=== PATIENT | male | born 1940 | race Caucasian/White ===

== ENCOUNTER 2017-11-12 15:09 | Inpatient (IN) | payer MEDICARE, OTHER ==
[~2017-11-12] VITALS: Ht 177.8 cm; Wt 82.3 kg
[~2017-11-12 15:09] MED LIST: BENA25TA8 PO; CLON1 PO; IBUP400T20 PO; LISI40TA PO; METF-324 PO; SITA100 PO; TAB-TAB PO; TAMS0.4C67 PO
[2017-11-12] MEDS ORDERED: ONDANSETRON HCL 4 MG/2 ML VIAL IVP PRN (17:45)
[2017-11-12] MEDS ORDERED: MAGNESIUM HYDROXIDE SUSP 30 ML CUP PO PRN (17:45)
[2017-11-12] MEDS ORDERED: SENNOSIDES 8.6 MG TAB PO PRN (17:45)
[2017-11-12] MEDS ORDERED: SODIUM CHLORIDE 0.9% FLUSH 10 ML FLUSH IV FLUSH PRN (17:45)
[2017-11-12] MEDS ORDERED: LACTULOSE SYRUP 20 GM/30 ML CUP PO PRN (17:45)
[2017-11-12] MEDS ORDERED: ZOLPIDEM TARTRATE 5 MG TAB PO PRN (17:45)
[2017-11-12] MEDS ORDERED: NALOXONE HCL 0.4 MG/ML AMP IV PUSH PRN (17:45)
[2017-11-12] MEDS ORDERED: BISACODYL 10 MG SUPP RECTAL PRN (17:45)
[2017-11-12] MEDS ORDERED: LIDOCAINE HCL 2% 100 MG/5 ML SYRINGE ONE (18:02)
[2017-11-12] MEDS ORDERED: LIDOCAINE HCL 1% 50 ML VIAL ONE ×2 (18:05→18:20)
--- NOTE | 2017-11-12 18:16 | HHI.HP ---
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 Hyperleukocytosis. Severe thrombocytopenia. Symptomatic anemia. Chronic history of diabetes mellitus. Hypertension. Diagnoses: (1) Chronic neutrophilic leukemia Diagnosis: Principal (2) Thrombocytopenia Diagnosis: Secondary (3) Anemia Diagnosis: Secondary (4) Hypertension Diagnosis: Secondary (5) Diabetes mellitus Diagnosis: Secondary Chief Complaint: White blood cell count greater than 200,000. Generalized fatigue and weakness. Chest pain radiating to the right and left side of the sternum. Difficulty breathing with minimal exertion. Travel History International Travel<30 Days: No Contact w/Intl Traveler <30 Da: No Traveled to Known Affected Are: No History of Present Illness Mr. 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 The patient had leukocytosis and thrombocytopenia dating back 3 or 4 years however a formal diagnosis of chronic neutrophilic leukemia was not established until March 2017. For management of his CNL the patient had been on cytoreductive therapy with hydroxyurea and subsequently was initiated on interferon which he had no response, in quick succession he was transitioned to oral Jakafi about a month ago at a low dose. He has yet to receive a tyrosine kinase inhibitor. Over the past 3 weeks he has been noted to have a rapid increase in his WBC count which is mostly driven by increase in neutrophils and myelocytes. The patient was given pulse doses of hydroxyurea which seemed not to help decrease his WBC count but did worsen his thrombocytopenia. The patient has had chronic thrombocytopenia and over the past 2 or 3 weeks is required weekly platelet transfusions. He is becoming platelet transfusion refractory. Patient underwent blood work earlier today, he was noted to have a total WBC count of 210,000, platelet count of 20,000 and hemoglobin of 8.1 g/dL. Manual absolute neutrophil count was noted to be 208,000 with increased metamyelocytes , myelocytes and promyelocytes, nucleated red blood cells were also noted. Blasts were not reported in the peripheral smear on manual differential. The patient was recommended hospitalization for emergent cytoreductive systemic chemotherapy given the failure of outpatient repeated interventions including hydroxyurea, interferon and Jakafi which have over the past 3 months been delivered in combination or sequentially. He has been advised cytoreductive therapy with cytarabine at an intermediate dose. Review of Systems Constitutional: COMPLAINS OF: Fatigue, Weight loss, Chills, Dizziness, Change in appetite (Decreased appetite), Night Sweats, DENIES: Diaphoretic episodes, Fever, Weight gain Endocrine: COMPLAINS OF: Heat/cold intolerance, DENIES: Polydipsia, Polyuria, Polyphagia Eyes: COMPLAINS OF: Vision loss, Photosensitivity, DENIES: Blurred vision, Diplopia, Eye inflammation, Eye pain, Double Vision Ears, nose, mouth, throat: DENIES: Tinnitus, Hearing loss, Vertigo, Nasal discharge, Oral lesions, Throat pain, Hoarseness, Ear Pain, Running Nose, Epistaxis, Sinus Pain, Toothache, Odynophagia Respiratory: COMPLAINS OF: Cough, Snoring, Sputum production, Shortness of breath, DENIES: Apneas, Wheezing, Hemoptysis Cardiovascular: COMPLAINS OF: Chest pain, Palpitations, Dyspnea on Exertion, Lower Extremity Edema, DENIES: Syncope, PND, Orthopnea, Claudication Gastrointestinal: COMPLAINS OF: Nausea, Anorexia, DENIES: Abdominal pain, Black stools, Bloody stools, Constipation, Diarrhea, Vomiting, Difficulty Swallowing Genitourinary: COMPLAINS OF: Nocturia, DENIES: Sexual dysfunction, Urinary frequency, Urinary incontinence, Urgency, Hematuria, Dysuria, Penile Discharge, Testicular Pain, Testicular Swelling Musculoskeletal: COMPLAINS OF: Muscle aches, Stiffness, Back pain, DENIES: Joint pain, Joint Swelling, Neck pain Integumentary: DENIES: Abnormal pigmentation, Nail changes, Pruritus, Rash Hematologic/lymphatic: COMPLAINS OF: Bruising, DENIES: Lymphadenopathy Immunologic/allergic: DENIES: Eczema, Urticaria Neurologic: COMPLAINS OF: Headache, Poor Balance, DENIES: Abnormal gait, Localized weakness, Paresthesias, Seizures, Speech Problems, Tremor Psychiatric: COMPLAINS OF: Anxiety, Confusion, DENIES: Mood changes, Depression , Hallucinations, Agitation, Suicidal Ideation, Homicidal Ideation, Delusions Except as stated in HPI: all other systems reviewed are Neg Past Family Social History Past Medical History Chronic neutrophilic leukemia Hypertension Diabetes Severe thrombus cytopenia Anemia Periodontal disease. Past Surgical History Multiple bone marrow biopsies Cholecystectomy Tonsillectomy Appendectomy Reported Medications Jakafi 5 mg p.o. daily Januvia 100 mg once daily Metformin 500 mg p.o. twice daily Lisinopril 20 mg once daily Flomax 0.4 mg once daily. Allergies: Coded Allergies: No Known Allergies (Unverified , 06/01/14) Family History Parents about disease no known oncologic diagnoses in the family. Social History Retired from the [employer], he is , he lives at home alone. He has a daughter who lives nearby who is very supportive. He reports formally being a smoker having smoked a pack a day for 25 years, he quit 30 years ago. He reports occasional alcohol consumption. Physical Exam Physical Exam GENERAL: Elderly male, he appears to be pale, he is in no acute distress, he is accompanied by his daughter. SKIN: Skin is pale, cool, dry, small petechiae noted over the abdomen, some bruises scattered over the upper and lower 70s. HEAD: Atraumatic. Normocephalic. No temporal or scalp tenderness. EYES: Conjunctivae are pale sclerae are anicteric, EOMI, PERRLA,. ENT: Oral examination: Multiple teeth have been extracted, no obvious masses erythema active bleeding. NECK: Trachea midline. No JVD or lymphadenopathy. Supple, nontender, no meningeal signs. CARDIOVASCULAR: Tachycardic, regular, S1-S2 no obvious murmurs or gallops. RESPIRATORY: Clear to auscultation. Breath sounds equal bilaterally. No wheezes , rales, or rhonchi. GASTROINTESTINAL: Abdomen soft, non-tender, nondistended. No hepato-splenomegaly , or palpable masses. No guarding. MUSCULOSKELETAL: Extremities without clubbing, cyanosis, or edema. No joint tenderness, effusion, or edema noted. No calf tenderness. Negative Homans sign bilaterally. Generally decreased muscle mass NEUROLOGICAL: Awake and alert. Cranial nerves II through XII intact. Motor and sensory grossly within normal limits. Five out of 5 muscle strength in all muscle groups. Normal speech. Laboratory CBC dated 11/12/2017 performed at [facility]: WBC count 210, hemoglobin 8.1 g/dL, hematocrit 23.2%, MCV 103.5, platelet count 20, absolute neutrophil count 208.7, metamyelocytes: 13%, myelocytes 9%, promyelocytes 9%, nucleated RBCs 2%. Chemistries:Dated 11/12/2017 Sodium 135, potassium 4.1, chloride 102, bicarb 22.6, BUN 19, creatinine 0.98, EGFR 74 mils per minute, calcium 8.9, total bilirubin 0.5, AST 34, ALT 30, alkaline phosphate 442, albumin 3.9. Septic Shock Reassessment Septic shock perfusion: reassessment completed Caprini VTE Risk Assessment Caprini VTE Risk Assessment: Mod/High Risk (score >= 2) VTE Pharm Contraindication: Thrombocytopenia(<50) Caprini Risk Assessment Model Point Value = 1 Point Value = 2 Point Value = 3 Point Value = 5 Age 41-60 Minor surgery BMI > 25 kg/m2 Swollen legs Varicose veins or History of unexplained or recurrent spontaneous Oral contraceptives or hormone replacement Sepsis (< 1 month) Serious lung disease, including pneumonia (< 1 month) Abnormal pulmonary function Acute myocardial infarction Congestive heart failure (< 1 month) History of inflammatory bowel disease Medical patient at bed rest Age 61-74 Arthroscopic surgery Major open surgery (> 45 min) Laparoscopic surgery (> 45 min) Malignancy Confined to bed (> 72 hours) Immobilizing plaster cast Central venous access Age >= 75 History of VTE Family history of VTE Factor V Leiden Prothrombin [id number] Lupus anticoagulant Anticardiolipin antibodies Elevated serum homocysteine Heparin-induced thrombocytopenia Other congenital or acquired thrombophilia Stroke (< 1 month) Elective arthroplasty Hip, pelvis, or leg fracture Acute spinal cord injury (< 1 month) Prophylaxis Regimen Total Risk Factor Score Risk Level Prophylaxis Regimen 0-1 Low Early ambulation 2 Moderate Order ONE of the following: *Sequential Compression Device (SCD) *Heparin 5000 units SQ BID 3-4 Higher Order ONE of the following medications: *Heparin 5000 units SQ TID *Enoxaparin/Lovenox 40 mg SQ daily (WT < 150 kg, CrCl > 30 mL/min) *Enoxaparin/Lovenox 30 mg SQ daily (WT < 150 kg, CrCl > 10-29 mL/min) *Enoxaparin/Lovenox 30 mg SQ BID (WT < 150 kg, CrCl > 30 mL/min) AND/OR *Sequential Compression Device (SCD) 5 or more Highest Order ONE of the following medications: *Heparin 5000 units SQ TID (Preferred with Epidurals) *Enoxaparin/Lovenox 40 mg SQ daily (WT < 150 kg, CrCl > 30 mL/min) *Enoxaparin/Lovenox 30 mg SQ daily (WT < 150 kg, CrCl > 10-29 mL/min) *Enoxaparin/Lovenox 30 mg SQ BID (WT < 150 kg, CrCl > 30 mL/min) AND *Sequential Compression Device (SCD) Assessment and Plan Problem List: (1) Chronic neutrophilic leukemia ICD Code: D47.1 - Chronic myeloproliferative disease (2) Anemia ICD Code: D64.9 - Anemia, unspecified (3) Thrombocytopenia ICD Code: D69.6 - Thrombocytopenia, unspecified Status: Chronic Assessment and Plan 78-year-old man with a diagnosis of chronic neutrophilic leukemia, there is associated with cytopenias including anemia and thrombus cytopenia. Unfortunately his disease has been difficult to control, over the past several months his WBC count has been increasing and despite systemic therapeutic interventions consisting of cytoreductive therapy with hydroxyurea, disease modifying therapy with interferon and targeted therapy consisting of Jakafi the patient has not responded. This week his WBC count doubled from 100,000-210,000 , he has significant metamyelocytes, myelocytes and promyelocytes in circulation. Blast cells are not definitively noted. I suspect he may be entering in accelerated phase and requires cytoreductive chemotherapy with cytarabine. Think would be reasonable to treat him at a dose of 1000 mg per metered squared daily 4 whilst monitoring for tumor lysis syndrome and treating him supportively with IV fluid hydration. Bone marrow biopsy will be done tonight to rule out progression to acute myeloid leukemia. Plan: 1. Chronic neutrophilic leukemia: Obtain bone marrow biopsy with marrow aspiration tonight. Initiate plans to start cytarabine at a dose of 1000 mg per metered squared daily on 11/13/2017. 2. Tumor lysis syndrome prophylaxis: Initiate allopurinol 300 mg p.o. twice daily, initiate IV fluid hydration. Obtain baseline uric acid and LDH levels. 3. History of type 2 diabetes: Initiate insulin sliding scale protocol with before meals and at bedtime bedside fingersticks with insulin sliding scale coverage. Initiate outpatient metformin and Januvia. 4. History of BPH: Continue outpatient Flomax 0.4 mg daily. 5. History of hypertension: Continue outpatient lisinopril 20 mg once daily. 6. Severe thrombocytopenia: He is oftentimes platelet refractory and requires HLA matched platelets. I will alert our blood bank to procure HLA matched platelets as I anticipate he will become cytopenic with initiation of systemic chemotherapy. 7. Symptomatic anemia: Supportive transfusions to maintain hemoglobin over 8 g/ dL. 8. He will be kept on telemetry to monitor heart rate to rule out arrhythmias. 9. Vital signs per unit protocol, physician to be alerted for fever greater than 100.3F. Code Status Full Discussed Condition With Patient, his daughter at bedside and patient's nurse. Physician Certification 2 Midnight Certification Type: Admission for Inpatient Services Order for Inpatient Services The services are ordered in accordance with Medicare regulations or non- Medicare payer requirements, as applicable. In the case of services not specified as inpatient-only, they are appropriately provided as inpatient services in accordance with the 2-midnight benchmark. Estimated LOS (days): 8 days is the estimated time the patient will need to remain in the hospital, assuming treatment plan goals are met and no additional complications. Post-Hospital Plan: Home Health Problem Qualifiers (1) Anemia: Qualified Codes: D61.89 - Other specified aplastic anemias and other bone marrow failure syndromes (2) Diabetes mellitus: Timoteo Mac MD Nov 12, 2017 18:16
[2017-11-12] MEDS ORDERED: DEXTROSE 50% IN WATER 50 ML VIAL(D50) IV PUSH PRN (18:30)
[2017-11-12] MEDS ORDERED: GLUCAGON 1 MG/ML VIAL OTHER PRN (18:30)
--- NOTE | 2017-11-12 19:03 | PD.OP ---
Operative Report Date of Surgery: Nov 12, 2017 Preoperative Diagnosis: (1) Chronic neutrophilic leukemia Postoperative Diagnosis: (1) Chronic neutrophilic leukemia Procedure: Left posterior iliac crest bone marrow core biopsy and attempted bone marrow aspiration. Anesthesia: 1% lidocaine; local anesthesia. Surgeon: Timoteo Mac Outside Sales Account Manager(s): None Resident Surgeon: None Operation and Findings: Procedure in detail: After valid informed consent was obtained the skin overlying the left posterior iliac crest was cleaned and draped in a sterile fashion. The skin, subcutaneous tissue and periosteum were anesthetized with 1% lidocaine. A 3 mm horizontal incision was made in the anesthetized skin. A Jamshidi needle was then introduced and progressed into the left posterior iliac crest. A 1 cm core biopsy was obtained. Touch preps at bedside were prepared. The Jamshidi needle was then reintroduced through the same incision into the left posterior iliac crest and 2 different attempts were made to aspirate bone marrow. No bone marrow was aspirated, there was not even a flash of bone marrow. The Jamshidi needle was progressed into the posterior iliac crest and then withdrawn , an additional 1 cm core biopsy was obtained. The cores were dry appearing. At that time the procedure was terminated. Pressure was held after all needles were removed. The patient tolerated the procedure without acute complications. Estimated blood loss was 3 cc. Timoteo Mac MD Nov 12, 2017 19:03
[2017-11-12 19:41] LABS: INTERNATIONAL NORMALIZED RATIO 1.1 RATIO; MEAN CELL VOLUME 107.7 FL (80.0-100.0); MEAN CORPUSCULAR HEMOGLOBIN 30.4 PG (27.0-34.0); MEAN PLATELET VOLUME 8.2 FL (7.0-11.0); PROTHROMBIN TIME - PATIENT 11.3 SEC (9.8-11.6); RED BLOOD COUNT 1.87 MIL/MM3 (4.50-5.90); RED CELL DISTRIBUTION WIDTH 24.2 % (11.6-17.2); WHITE BLOOD COUNT 216.5 TH/MM3 (4.0-11.0)
[2017-11-12 19:51] LABS: AST (GOT) 36 U/L (15-37); BICARBONATE 20.1 MEQ/L (21.0-32.0); BLOOD UREA NITROGEN 18 MG/DL (7-18); CALCIUM 9.2 MG/DL (8.5-10.1); CHLORIDE 102 MEQ/L (98-107); CREATININE 1.04 MG/DL (0.60-1.30); GLOMERULAR FILTRATION RATE 69 ML/MIN (>89); GLUCOSE,RANDOM 103 MG/DL (74-106); SODIUM (NA) 135 MEQ/L (136-145)
[2017-11-12 19:55] LABS: ALKALINE PHOSPHATASE 434 U/L (45-117); ALT (GPT) 33 U/L (12-78); TOTAL BILIRUBIN ADULT 0.4 MG/DL (0.2-1.0); TOTAL PROTEIN 7.5 GM/DL (6.4-8.2)
[2017-11-12 20:15] LABS: MAGNESIUM 2.1 MG/DL (1.5-2.5); PHOSPHORUS 3.6 MG/DL (2.5-4.9)
[2017-11-12 20:38] LABS: HEMATOCRIT 20.1 % (39.0-51.0); HEMOGLOBIN 5.7 GM/DL (13.0-17.0); MEAN CORPUSCULAR HGB CONC 28.2 % (32.0-36.0); PLATELET COUNT 19 TH/MM3 (150-450)
[2017-11-12] MEDS ORDERED: ACETAMINOPHEN 325 MG TAB PO ONE (21:45)
[2017-11-12] MEDS ORDERED: diphenhydrAMINE HCL 25 MG CAP PO ONE (21:45)
[2017-11-12 22:11] LABS: BANDS 26 % (0-6); LYMPHOCYTES 2 % (9-44); METAMYELOCYTES 6 % (0-1); MONOCYTES 6 % (0-8); MYELOCYTES 7 % (0-0); NEUTROPHIL # MANUAL DIFF 199.2 TH/MM3 (1.8-7.7); POLYS (SEG NEUTROPHILS) 46 % (16-70); PROMYELOCYTES 7 % (0-0)
[2017-11-12 22:13] LABS: DOHLE BODIES PRESENT (NONE SEEN)
[2017-11-12 22:20] VITALS: BP 151/74; PULSE 114; PULSE 123; RESP 16; TEMP 98.2; O2SAT 97
[2017-11-12] MEDS: metFORMIN HCL 500 MG TAB PO SCH (22:43)
[2017-11-12] MEDS: DOCUSATE SODIUM 50 MG/SENNA 8.6 MG TAB PO SCH (22:43)
[2017-11-12] MEDS: TAMSULOSIN HCL 0.4 MG CAP PO SCH (22:43)
[2017-11-12] MEDS: INSULIN ASPART SUPPLEMENTAL SCALE SQ SCH (22:43)
[2017-11-12] MEDS: ALLOPURINOL 300 MG TAB PO SCH (22:44)
[2017-11-12] MEDS: SODIUM CHLORIDE 0.9% FLUSH 10 ML FLUSH IV FLUSH SCH (22:44)
[2017-11-13] VITALS (16 sets, daily range): BP systolic 123–163; BP diastolic 54–83; PULSE 100–129; RESP 16–18; TEMP 97.6–98.5; O2SAT 94–100
[2017-11-13] MEDS: SODIUM CHLOR 0.9% 1000 ML INJ 1,000 ML IV SCH ×2 (06:22→19:47)
[2017-11-13] MEDS: DOCUSATE SODIUM 50 MG/SENNA 8.6 MG TAB PO SCH ×2 (07:16→20:31)
[2017-11-13] MEDS: SODIUM CHLORIDE 0.9% FLUSH 10 ML FLUSH IV FLUSH SCH ×2 (07:17→20:15)
[2017-11-13] MEDS: INSULIN ASPART SUPPLEMENTAL SCALE SQ SCH ×4 (08:00→20:26)
--- NOTE | 2017-11-13 08:44 | PD.ONC.PN ---
Subjective Subjective Remarks Patient seen and examined, vital signs, labs and medications reviewed. Patient received 2 units packed red blood cells last night and was initiated on IV fluid hydration. He tells me overall he feels better after the blood cell transfusion, he did have a brief period of difficulty breathing and band like chest pain across the central portion of his chest last night. But this was short-lived. Overnight he was noted to have sustained sinus tachycardia with heart rates sustaining in the 120 bpm range. This morning his heart rate is ranging between 95 and 105 bpm. He remains afebrile. Objective Data Date Time Temp Pulse Resp B/P (MAP) Pulse Ox O2 Delivery O2 Flow Rate FiO2 11/13/17 08:22 Room Air 11/13/17 08:00 97.7 100 18 145/75 (98) 97 11/13/17 07:00 106 11/13/17 04:45 98.0 105 18 132/66 97 11/13/17 04:19 97.8 104 16 130/68 97 11/13/17 04:05 97.8 104 16 130/68 (88) 97 11/13/17 04:00 105 11/13/17 01:15 98.5 111 18 126/54 94 11/13/17 00:40 98.5 117 18 140/71 96 11/13/17 00:10 98 Nasal Cannula 1.00 11/12/17 22:20 123 11/12/17 22:20 98.2 114 16 151/74 (99) 97 11/12/17 22:20 100 Nasal Cannula 1.00 11/13/17 11/13/17 11/13/17 07:00 15:00 23:00 Intake Total 490 ml Output Total 380 ml Balance 110 ml Result Diagram: 11/12/17 1823 11/12/17 1823 Laboratory Results Laboratory Tests Test 11/12/17 18:23 11/12/17 19:29 White Blood Count 216.5 TH/MM3 Red Blood Count 1.87 MIL/MM3 Hemoglobin 5.7 GM/DL Hematocrit 20.1 % Mean Corpuscular Volume 107.7 FL Mean Corpuscular Hemoglobin 30.4 PG Mean Corpuscular Hemoglobin Concent 28.2 % Red Cell Distribution Width 24.2 % Platelet Count 19 TH/MM3 Mean Platelet Volume 8.2 FL CBC Comment AUTO DIFF Differential Total Cells Counted 100 Neutrophils % (Manual) 46 % Band Neutrophils % 26 % Lymphocytes % 2 % Monocytes % 6 % Neutrophils # (Manual) 199.2 TH/MM3 Metamyelocytes 6 % Myelocytes 7 % Promyelocytes 7 % Differential Comment FINAL DIFF MANUAL Dohle Bodies PRESENT Platelet Estimate RARE Platelet Morphology Comment NORMAL Prothrombin Time 11.3 SEC Prothromb Time International Ratio 1.1 RATIO Activated Partial Thromboplast Time 24.5 SEC Blood Urea Nitrogen 18 MG/DL Creatinine 1.04 MG/DL Random Glucose 103 MG/DL Total Protein 7.5 GM/DL Albumin 4.0 GM/DL Calcium Level 9.2 MG/DL Alkaline Phosphatase 434 U/L Aspartate Amino Transf (AST/SGOT) 36 U/L Alanine Aminotransferase (ALT/SGPT) 33 U/L Total Bilirubin 0.4 MG/DL Sodium Level 135 MEQ/L Potassium Level 3.9 MEQ/L Chloride Level 102 MEQ/L Carbon Dioxide Level 20.1 MEQ/L Anion Gap 13 MEQ/L Estimat Glomerular Filtration Rate 69 ML/MIN Uric Acid 6.1 MG/DL Phosphorus Level 3.6 MG/DL Magnesium Level 2.1 MG/DL Lactate Dehydrogenase 760 U/L Administered Medications Medications (Trade) Dose Ordered Sig/S[place] PRN Reason Start Time Stop Time Status Last Admin Dose Admin Sodium Chloride (NS Flush) 2 ml BID IV FLUSH 11/12/17 21:00 11/12/17 22:44 Metformin HCl (Glucophage) 500 mg BIDPC PO 11/12/17 18:30 11/12/17 22:43 Tamsulosin HCl (Flomax) 0.4 mg DAILY PO 11/12/17 18:30 11/12/17 22:43 Allopurinol (Zyloprim) 300 mg BID PO 11/12/17 21:00 11/12/17 22:44 Sodium Chloride 1,000 ml @ 75 mls/hr [id number] IV 11/13/17 04:45 11/13/17 06:22 Objective Remarks GENERAL: Elderly male, he appears to be pale, he is in no acute distress, he is accompanied by his daughter. SKIN: Skin is pale, cool, dry, small petechiae noted over the abdomen, some bruises scattered over the upper and lower 70s. HEAD: Atraumatic. Normocephalic. No temporal or scalp tenderness. EYES: Conjunctivae are pale sclerae are anicteric, EOMI, PERRLA,. ENT: Oral examination: Multiple teeth have been extracted, no obvious masses erythema active bleeding. NECK: Trachea midline. No JVD or lymphadenopathy. Supple, nontender, no meningeal signs. CARDIOVASCULAR: Tachycardic, regular, S1-S2 no obvious murmurs or gallops. RESPIRATORY: Clear to auscultation. Breath sounds equal bilaterally. No wheezes , rales, or rhonchi. GASTROINTESTINAL: Abdomen soft, non-tender, nondistended. No hepato-splenomegaly , or palpable masses. No guarding. MUSCULOSKELETAL: Extremities without clubbing, cyanosis, or edema. No joint tenderness, effusion, or edema noted. No calf tenderness. Negative Homans sign bilaterally. Generally decreased muscle mass NEUROLOGICAL: Awake and alert. Cranial nerves II through XII intact. Motor and sensory grossly within normal limits. Five out of 5 muscle strength in all muscle groups. Normal speech. Assessment/Plan Assessment 77-year-old man with a diagnosis of chronic neutrophilic leukemia, there is associated with cytopenias including anemia and thrombus cytopenia. Unfortunately his disease has been difficult to control, over the past several months his WBC count has been increasing and despite systemic therapeutic interventions consisting of cytoreductive therapy with hydroxyurea, disease modifying therapy with interferon and targeted therapy consisting of Jakafi the patient has not responded. This week his WBC count doubled from 100,000-210,000 , he has significant metamyelocytes, myelocytes and promyelocytes in circulation. Blast cells are not definitively noted. I suspect he may be entering in accelerated phase and requires cytoreductive chemotherapy with cytarabine. Think would be reasonable to treat him at a dose of 1000 mg per metered squared daily 4 whilst monitoring for tumor lysis syndrome and treating him supportively with IV fluid hydration. Bone marrow biopsy will be done tonight to rule out progression to acute myeloid leukemia. Plan 1. Chronic neutrophilic leukemia: Await PICC line placement followed by initiation of cytoreductive systemic chemotherapy with cytarabine. He will be dosed daily for total of 4 doses at 1000 mg per metered squared. 2. Tumor lysis syndrome prophylaxis: Continue IV fluid hydration with normal saline 75 cc/h, encourage oral hydration, he is on acyclovir 300 mg p.o. twice daily. 3. Diabetes: Continue Januvia, metformin and insulin sliding scale with meals and before bedtime. 4. 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 He has therefore required HLA matched platelets. Timoteo Mac MD Nov 13, 2017 08:44
[2017-11-13] MEDS ORDERED: SODIUM CHLOR 0.9% 250 ML INJ 250 ML IV ONE (09:15)
[2017-11-13] MEDS: LISINOPRIL 20 MG TAB PO SCH (09:20)
[2017-11-13] MEDS: TAMSULOSIN HCL 0.4 MG CAP PO SCH (09:20)
[2017-11-13] MEDS: ALLOPURINOL 300 MG TAB PO SCH ×2 (09:20→20:14)
[2017-11-13] MEDS: metFORMIN HCL 500 MG TAB PO SCH ×2 (09:20→17:54)
[2017-11-13 11:26] LABS: HEMATOCRIT 27.3 % (39.0-51.0); HEMOGLOBIN 8.1 GM/DL (13.0-17.0); MEAN CELL VOLUME 101.8 FL (80.0-100.0); MEAN CORPUSCULAR HEMOGLOBIN 30.3 PG (27.0-34.0); MEAN PLATELET VOLUME 8.6 FL (7.0-11.0); RED BLOOD COUNT 2.68 MIL/MM3 (4.50-5.90); RED CELL DISTRIBUTION WIDTH 23.4 % (11.6-17.2); WHITE BLOOD COUNT 247.3 TH/MM3 (4.0-11.0)
[2017-11-13 11:30] LABS: MEAN CORPUSCULAR HGB CONC 29.7 % (32.0-36.0)
[2017-11-13 11:34] LABS: PLATELET COUNT 19 TH/MM3 (150-450)
[2017-11-13 12:55] LABS: BANDS 20 % (0-6); BLASTS 1 % (0-0); LYMPHOCYTES 1 % (9-44); METAMYELOCYTES 10 % (0-1); MONOCYTES 3 % (0-8); MYELOCYTES 25 % (0-0); NEUTROPHIL # MANUAL DIFF 237.4 TH/MM3 (1.8-7.7); POLYS (SEG NEUTROPHILS) 36 % (16-70); PROMYELOCYTES 5 % (0-0)
[2017-11-13 12:59] LABS: CORRECTED NUCLEATED RBC 1 /100 WBC (0-0); NUCLEATED RED BLOOD CELL 2 (0-0)
[2017-11-13] MEDS: SODIUM CHLORIDE 0.9% IV SCH (14:57)
[2017-11-13] MEDS: GRANISETRON IV SCH (14:57)
[2017-11-13] MEDS: DEXAMETHASONE IV SCH (14:57)
--- NOTE | 2017-11-13 15:21 | RADRPT ---
EXAM DATE/TIME: 11/13/2017 13:58 [facility] COMPARISON: No previous studies available for comparison. INDICATIONS : Patient with chronic neutrophilic leukemia in need of PICC line placement. MEDICAL HISTORY : Thrombocytopenia, Leukocytosis, HTN, Diabetes, Severe thrombus cytopenia, Anemia SURGICAL HISTORY : Multiple bone marrow biopsies, Cholecystectomy ENCOUNTER: Initial ACUITY: 7-11 months PAIN SCORE: 0/10 FLUORO TIME: 0.5 minutes IMAGE SERIES: 1 ACCESS: Right basilic vein MEDICATION(S): 1.) 200 units Heparin IV DEVICE(S): 1.) 4 Vietnamese single lumen 45 cm Xcela Power PICC PROCEDURE : 1. Ultrasound guidance for venous catheterization. 2. Fluoroscopic guidance. 3. Ultrasound & fluoroscopic guided central venous Power PICC line placement. The risks, benefits and alternatives to the procedure were explained and verbal and written consent w as obtained. The site was prepped in sterile fashion. Full sterile technique was used, including ca p, mask, sterile gloves and gown and a large sterile sheet. Hand hygiene and 2% chlorhexidine prep w as utilized per protocol for cutaneous antisepsis with appropriate dry time for site. Sterile gel a nd sterile probe cover were utilized for ultrasound guidance. The skin and subcutaneous tissues wer e infiltrated with local anesthetic solution. Under direct ultrasound guidance, a suitable vein was accessed and a measuring guidewire was introduc ed and positioned in the central venous system. The ultrasound images depicting access guidance were saved and stored to PACS for permanent record. A Power Injectable PICC line was cut to prescribed length and introduced, positioned with tip at the cavoatrial junction level. The line was flushed and secured per protocol. CONCLUSION: 1. Uncomplicated central venous Power PICC line placement. 2. The PICC line can be used immediately. Jose Marshall MD on November 13, 2017 at 15:19 Board Certified Radiologist. This report was verified electronically.
[2017-11-13] MEDS: CYTARABINE IV SCH (16:05)
[2017-11-13] MEDS: SODIUM CHLORID 0.9% IV SCH (16:05)
[2017-11-13] MEDS: clonazePAM 1 MG TAB PO SCH (20:14)
[2017-11-14] VITALS (18 sets, daily range): BP systolic 108–156; BP diastolic 55–86; PULSE 90–110; RESP 16–20; TEMP 97–97.9; O2SAT 93–100
[2017-11-14 04:27] LABS: HEMATOCRIT 22.3 % (39.0-51.0); MEAN CELL VOLUME 101.6 FL (80.0-100.0); MEAN PLATELET VOLUME 8.9 FL (7.0-11.0); RED CELL DISTRIBUTION WIDTH 23.5 % (11.6-17.2)
[2017-11-14 04:37] LABS: MEAN CORPUSCULAR HGB CONC 28.5 % (32.0-36.0)
[2017-11-14 04:38] LABS: HEMOGLOBIN 6.4 GM/DL (13.0-17.0)
[2017-11-14 04:39] LABS: ALBUMIN 3.3 GM/DL (3.4-5.0); AST (GOT) 28 U/L (15-37); BICARBONATE 18.8 MEQ/L (21.0-32.0); BLOOD UREA NITROGEN 21 MG/DL (7-18); CHLORIDE 106 MEQ/L (98-107); CREATININE 1.03 MG/DL (0.60-1.30); GLOMERULAR FILTRATION RATE 70 ML/MIN (>89); GLUCOSE,RANDOM 180 MG/DL (74-106); PLATELET COUNT 12 TH/MM3 (150-450); SODIUM (NA) 135 MEQ/L (136-145)
[2017-11-14 04:45] LABS: ALKALINE PHOSPHATASE 361 U/L (45-117); ALT (GPT) 25 U/L (12-78); TOTAL BILIRUBIN ADULT 0.5 MG/DL (0.2-1.0); TOTAL PROTEIN 6.3 GM/DL (6.4-8.2)
[2017-11-14 05:36] LABS: BANDS 14 % (0-6); LYMPHOCYTES 1 % (9-44); METAMYELOCYTES 4 % (0-1); MONOCYTES 2 % (0-8); MYELOCYTES 11 % (0-0); POLYS (SEG NEUTROPHILS) 68 % (16-70)
[2017-11-14 05:37] LABS: TEARDROP RBCS 1+ (NORMAL)
[2017-11-14] MEDS ORDERED: SODIUM CHLOR 0.9% 250 ML INJ 250 ML IV ONE (07:45)
[2017-11-14] MEDS ORDERED: diphenhydrAMINE HCL 25 MG CAP PO PRN (07:45)
[2017-11-14] MEDS: INSULIN ASPART SUPPLEMENTAL SCALE SQ SCH ×4 (08:00→20:11)
--- NOTE | 2017-11-14 08:40 | PD.ONC.PN ---
Subjective Subjective Remarks Afebrile overnight. Patient states he feels great today. He states he slept well last night. He is eating breakfast this AM. He denies any oral sores or nausea with chemotherapy yesterday. He states yesterday prior to chemotherapy he had some loose stools. but states they have improved somewhat today. Objective Data Date Time Temp Pulse Resp B/P (MAP) Pulse Ox O2 Delivery O2 Flow Rate FiO2 11/14/17 04:49 97.7 97 20 128/71 (90) 96 11/14/17 00:21 97.8 91 18 112/60 (77) 98 11/14/17 00:09 101 11/13/17 22:49 97 21 11/13/17 20:07 98.1 108 18 123/65 (84) 97 11/13/17 20:06 111 11/13/17 20:05 Room Air 11/13/17 16:48 Room Air 11/13/17 16:00 98.1 129 18 127/63 (84) 100 11/13/17 15:00 129 11/13/17 12:00 97.6 118 16 163/83 (109) 96 11/13/17 11:53 Room Air 11/13/17 11:00 108 11/14/17 11/14/17 11/14/17 07:00 15:00 23:00 Intake Total 500 ml Output Total 601 ml Balance -101 ml Result Diagram: 11/14/17 0351 11/14/17 0351 Laboratory Results Laboratory Tests Test 11/13/17 10:23 11/14/17 03:51 11/14/17 04:20 White Blood Count 247.3 TH/MM3 233.0 TH/MM3 Red Blood Count 2.68 MIL/MM3 2.20 MIL/MM3 Hemoglobin 8.1 GM/DL 6.4 GM/DL Hematocrit 27.3 % 22.3 % Mean Corpuscular Volume 101.8 FL 101.6 FL Mean Corpuscular Hemoglobin 30.3 PG 29.0 PG Mean Corpuscular Hemoglobin Concent 29.7 % 28.5 % Red Cell Distribution Width 23.4 % 23.5 % Platelet Count 19 TH/MM3 12 TH/MM3 Mean Platelet Volume 8.6 FL 8.9 FL CBC Comment AUTO DIFF AUTO DIFF Differential Total Cells Counted 200 100 Neutrophils % (Manual) 36 % 68 % Band Neutrophils % 20 % 14 % Lymphocytes % 1 % 1 % Monocytes % 3 % 2 % Neutrophils # (Manual) 237.4 TH/MM3 226.0 TH/MM3 Metamyelocytes 10 % 4 % Myelocytes 25 % 11 % Promyelocytes 5 % Nucleated Red Blood Cells 1 /100 WBC Differential Comment FINAL DIFF MANUAL FINAL DIFF MANUAL Blastocytes 1 % Platelet Estimate LOW RARE Platelet Morphology Comment NORMAL NORMAL Tear Drop Cells 1+ Blood Urea Nitrogen 21 MG/DL Creatinine 1.03 MG/DL Random Glucose 180 MG/DL Total Protein 6.3 GM/DL Albumin 3.3 GM/DL Calcium Level 8.0 MG/DL Uric Acid 5.4 MG/DL Alkaline Phosphatase 361 U/L Aspartate Amino Transf (AST/SGOT) 28 U/L Alanine Aminotransferase (ALT/SGPT) 25 U/L Lactate Dehydrogenase 895 U/L Total Bilirubin 0.5 MG/DL Sodium Level 135 MEQ/L Potassium Level 4.7 MEQ/L Chloride Level 106 MEQ/L Carbon Dioxide Level 18.8 MEQ/L Anion Gap 10 MEQ/L Estimat Glomerular Filtration Rate 70 ML/MIN Administered Medications Medications (Trade) Dose Ordered Sig/Sierra Route PRN Reason Start Time Stop Time Status Last Admin Dose Admin Sodium Chloride (NS Flush) 2 ml BID IV FLUSH 11/12/17 21:00 11/12/17 22:44 Insulin Aspart (NovoLOG SUPPLEMENTAL SCALE) 1 ACHS SLIDING SCALE SQ 11/12/17 21:00 11/13/17 20:26 Metformin HCl (Glucophage) 500 mg BIDPC PO 11/12/17 18:30 11/13/17 17:54 Sitagliptin Phosphate (Januvia) 100 mg DAILY PO 11/13/17 09:00 11/13/17 09:19 Lisinopril (Prinivil) 20 mg DAILY PO 11/13/17 09:00 11/13/17 09:20 Tamsulosin HCl (Flomax) 0.4 mg DAILY PO 11/12/17 18:30 11/13/17 09:20 Allopurinol (Zyloprim) 300 mg BID PO 11/12/17 21:00 11/13/17 20:14 Sodium Chloride 1,000 ml @ 75 mls/hr [id number] IV 11/13/17 04:45 11/13/17 19:47 Granisetron HCl 1 mg/Dexamethasone Sodium Phosphate 12 mg/Sodium Chloride 54 ml @ 324 mls/hr Q24H IV 11/13/17 16:30 11/16/17 16:39 11/13/17 14:57 Cytarabine 2000 mg/Sodium Chloride 500 ml @ 166.667 mls/hr Q24H IV 11/13/17 17:00 11/16/17 19:59 11/13/17 16:05 Clonazepam (KlonoPIN) 1 mg HS PO 11/13/17 21:00 11/13/17 20:14 Objective Remarks GENERAL: pleasant elderly male, sitting up in chair next to bed. He is eating breakfast. he appears comfortable and in nad. SKIN: Warm and dry. bruise along left posterior hip from bone marrow biopsy, bandage in place with dried blood. PICC line site right arm has dried blood on the bandage but no active bleeding. HEAD: Normocephalic. EYES: No injection or drainage. NECK: Supple, trachea midline. CARDIOVASCULAR: Regular rate and rhythm RESPIRATORY: Breath sounds equal bilaterally. No accessory muscle use. GASTROINTESTINAL: Abdomen soft, non-tender, nondistended. EXTREMITIES: No cyanosis NEUROLOGICAL: awake and alert. normal speech. moving extremities. Assessment/Plan Assessment 77-year-old male with with a diagnosis of chronic neutrophilic leukemia, admitted in suspected accelerated phase for cytoreductive chemotherapy with FLOR- C History: over the past several months his WBC count has been increasing and despite systemic therapeutic interventions consisting of cytoreductive therapy with hydroxyurea, disease modifying therapy with interferon and targeted therapy consisting of Jakafi the patient has not responded. the week of admission WBC count doubled from 100,000-210,000, +significant metamyelocytes, myelocytes and promyelocytes in circulation. Blast cells are not definitively noted. Plan 1. Chronic neutrophilic leukemia: s/p PICC line placement on 11/13. today is Day 2 (out of 4) of Cytarabine at 1000mg/m2. will start Decadron eye drops for prophylaxis. 2. Tumor lysis syndrome prophylaxis: on NS @ 75cc/hr. monitor CMP, uric acid, LDH, phosphorus and magnesium. 3. Diabetes: on Januvia + Metformin with SSI. monitor glucose 4. Severe thrombocytopenia and anemia: will give 1 unit HLA matched platelets today and 1 unit pRBC. I have requested a second unit of HLA matched platelets be available on Thursday. 5. Diarrhea: unclear etiology, although the patient indicates this is chronic. C. diff testing pending. If this is negative I will start PRN imodium. Attending Statement The exam, history, and the medical decision-making described in the above note were completed with the assistance of the mid-level provider. I reviewed and agree with the findings presented. I attest that I had a [id number] encounter with the patient on the same day, and personally performed and documented my assessment and findings in the medical record. Patient was seen and examined, vital signs, labs, medications, chemotherapy infusion record all reviewed. Patient is currently receiving 1 unit packed red blood cells. He reports having had one soft bowel movement with urgency yesterday. Stool C. difficile was ordered. He remains afebrile. He reports no further complaints of chest pain or difficulty breathing. He is eating well. He rested well last night. He had no difficulties with chemotherapy infusion. I did discuss the bone marrow core biopsy slides with our pathologist yesterday. No definite findings of acute myeloid leukemia, the core sample will be stained for blasts and a formal blast percentage will be reported in the upcoming days. There was however significant dyspoiesis in the red blood cell precursors noted and abnormal megakaryocytes noted as well. The marrow was overall noted to be quite hypercellular. Overall he had significant dysplasia. Continue systemic therapy with intermediate dose cytarabine. Today will be day 2. Supportive transfusions are ongoing. Akanksha Carballo Nov 14, 2017 08:40 Timoteo Mac MD Nov 14, 2017 12:34
[2017-11-14] MEDS: DEXAMETHASONE SOD PHOS 0.1% OPHT SOLN 5 ML BTL EACH EYE SCH ×4 (08:45→23:27)
[2017-11-14] MEDS: DOCUSATE SODIUM 50 MG/SENNA 8.6 MG TAB PO SCH ×2 (09:00→20:11)
[2017-11-14] MEDS: SODIUM CHLOR 0.9% 1000 ML INJ 1,000 ML IV SCH ×2 (09:13→20:12)
[2017-11-14] MEDS: TAMSULOSIN HCL 0.4 MG CAP PO SCH (09:14)
[2017-11-14] MEDS: LISINOPRIL 20 MG TAB PO SCH (09:14)
[2017-11-14] MEDS: ALLOPURINOL 300 MG TAB PO SCH ×2 (09:14→20:13)
[2017-11-14] MEDS: ACETAMINOPHEN 325 MG TAB PO PRN ×2 (09:14→20:37)
[2017-11-14] MEDS: metFORMIN HCL 500 MG TAB PO SCH ×2 (09:14→18:01)
[2017-11-14] MEDS: SODIUM CHLORIDE 0.9% FLUSH 10 ML FLUSH IV FLUSH SCH ×2 (10:35→20:11)
[2017-11-14 10:42] LABS: PHOSPHORUS 4.3 MG/DL (2.5-4.9)
[2017-11-14] MEDS: GRANISETRON IV SCH (16:02)
[2017-11-14] MEDS: SODIUM CHLORIDE 0.9% IV SCH (16:02)
[2017-11-14] MEDS: DEXAMETHASONE IV SCH (16:02)
[2017-11-14] MEDS: CYTARABINE IV SCH (16:54)
[2017-11-14] MEDS: SODIUM CHLORID 0.9% IV SCH (16:54)
[2017-11-14] MEDS: clonazePAM 1 MG TAB PO SCH (20:13)
[2017-11-15] VITALS (20 sets, daily range): BP systolic 108–155; BP diastolic 55–81; PULSE 76–105; RESP 16–18; TEMP 97.6–98.4; O2SAT 96–100
[2017-11-15 05:25] LABS: HEMATOCRIT 23.9 % (39.0-51.0); HEMOGLOBIN 7.1 GM/DL (13.0-17.0); MEAN CELL VOLUME 100.1 FL (80.0-100.0); MEAN CORPUSCULAR HEMOGLOBIN 29.8 PG (27.0-34.0); MEAN PLATELET VOLUME 8.5 FL (7.0-11.0); PLATELET COUNT 23 TH/MM3 (150-450); RED BLOOD COUNT 2.38 MIL/MM3 (4.50-5.90); RED CELL DISTRIBUTION WIDTH 22.9 % (11.6-17.2); WHITE BLOOD COUNT 217.3 TH/MM3 (4.0-11.0)
[2017-11-15 05:26] LABS: MEAN CORPUSCULAR HGB CONC 29.8 % (32.0-36.0)
[2017-11-15] MEDS: DEXAMETHASONE SOD PHOS 0.1% OPHT SOLN 5 ML BTL EACH EYE SCH ×4 (05:41→23:11)
[2017-11-15 05:44] LABS: ALBUMIN 3.5 GM/DL (3.4-5.0); BICARBONATE 18.3 MEQ/L (21.0-32.0); BLOOD UREA NITROGEN 25 MG/DL (7-18); CALCIUM 7.9 MG/DL (8.5-10.1); CHLORIDE 106 MEQ/L (98-107); CREATININE 0.95 MG/DL (0.60-1.30); GLOMERULAR FILTRATION RATE 77 ML/MIN (>89); GLUCOSE,RANDOM 185 MG/DL (74-106); SODIUM (NA) 137 MEQ/L (136-145)
[2017-11-15 05:47] LABS: ALKALINE PHOSPHATASE 443 U/L (45-117); ALT (GPT) 25 U/L (12-78); AST (GOT) 27 U/L (15-37); TOTAL BILIRUBIN ADULT 0.6 MG/DL (0.2-1.0); TOTAL PROTEIN 6.9 GM/DL (6.4-8.2)
[2017-11-15 06:33] LABS: BANDS 20 % (0-6); METAMYELOCYTES 3 % (0-1); MONOCYTES 1 % (0-8); MYELOCYTES 5 % (0-0); NEUTROPHIL # MANUAL DIFF 215.1 TH/MM3 (1.8-7.7); OVALOCYTES 1+ (NORMAL); POLYS (SEG NEUTROPHILS) 71 % (16-70)
[2017-11-15] MEDS: SODIUM CHLOR 0.9% 1000 ML INJ 1,000 ML IV SCH ×2 (07:51→23:16)
[2017-11-15] MEDS: INSULIN ASPART SUPPLEMENTAL SCALE SQ SCH ×4 (07:53→20:06)
[2017-11-15] MEDS: TAMSULOSIN HCL 0.4 MG CAP PO SCH ×2 (09:00→19:57)
[2017-11-15] MEDS: DOCUSATE SODIUM 50 MG/SENNA 8.6 MG TAB PO SCH ×2 (09:00→19:38)
[2017-11-15] MEDS ORDERED: metroNIDAZOLE 500 MG INJ 100 ML IV SCH (09:00)
[2017-11-15] MEDS: metFORMIN HCL 500 MG TAB PO SCH ×2 (09:19→18:06)
[2017-11-15] MEDS: ALLOPURINOL 300 MG TAB PO SCH ×2 (09:19→19:57)
[2017-11-15] MEDS: LISINOPRIL 20 MG TAB PO SCH (09:20)
[2017-11-15] MEDS: SODIUM CHLORIDE 0.9% FLUSH 10 ML FLUSH IV FLUSH SCH ×2 (09:20→19:57)
--- NOTE | 2017-11-15 09:22 | PD.ONC.PN ---
Subjective Subjective Remarks Afebrile overnight. patient upset that he has C. diff. Feels it is a set back. He is otherwise feeling great. He states he ate breakfast without problems. Plans on having some yogurt later. denies dizziness or lightheadedness. tolerated second bag of chemotherapy yesterday. Objective Data Date Time Temp Pulse Resp B/P (MAP) Pulse Ox O2 Delivery O2 Flow Rate FiO2 11/15/17 09:17 98 Nasal Cannula 2.00 11/15/17 06:00 90 11/15/17 05:00 96 11/15/17 04:00 97.7 102 16 147/72 (97) 98 11/15/17 04:00 105 11/15/17 04:00 102 11/15/17 04:00 98 Nasal Cannula 2.00 11/15/17 03:00 80 11/15/17 02:00 82 11/15/17 01:00 86 11/15/17 00:00 88 11/15/17 00:00 88 11/15/17 00:00 97.6 99 16 108/55 (72) 100 11/14/17 23:50 Nasal Cannula 2.00 11/14/17 23:20 97.0 99 16 108/55 100 11/14/17 23:00 90 11/14/17 22:00 102 11/14/17 21:38 97.9 109 17 129/69 97 11/14/17 21:23 97.8 110 17 156/83 97 11/14/17 21:00 106 11/14/17 20:57 21 11/14/17 20:00 95 Nasal Cannula 2.00 11/14/17 20:00 103 11/14/17 20:00 97.8 107 16 136/76 (96) 93 11/14/17 20:00 104 11/14/17 19:00 102 11/14/17 16:30 97.8 100 18 152/77 (102) 100 11/14/17 12:15 93 11/14/17 10:55 97.5 95 18 138/81 99 11/14/17 10:31 97.7 105 18 142/85 99 11/14/17 09:45 96 21 11/15/17 11/15/17 11/15/17 07:00 15:00 23:00 Intake Total 1352 ml Output Total 750 ml Balance 602 ml Result Diagram: 11/15/17 0435 11/15/17 0435 Laboratory Results Laboratory Tests Test 11/15/17 04:35 White Blood Count 217.3 TH/MM3 Red Blood Count 2.38 MIL/MM3 Hemoglobin 7.1 GM/DL Hematocrit 23.9 % Mean Corpuscular Volume 100.1 FL Mean Corpuscular Hemoglobin 29.8 PG Mean Corpuscular Hemoglobin Concent 29.8 % Red Cell Distribution Width 22.9 % Platelet Count 23 TH/MM3 Mean Platelet Volume 8.5 FL CBC Comment AUTO DIFF Differential Total Cells Counted 100 Neutrophils % (Manual) 71 % Band Neutrophils % 20 % Monocytes % 1 % Neutrophils # (Manual) 215.1 TH/MM3 Metamyelocytes 3 % Myelocytes 5 % Differential Comment FINAL DIFF MANUAL Platelet Estimate LOW Platelet Morphology Comment NORMAL Ovalocytes 1+ Blood Urea Nitrogen 25 MG/DL Creatinine 0.95 MG/DL Random Glucose 185 MG/DL Total Protein 6.9 GM/DL Albumin 3.5 GM/DL Calcium Level 7.9 MG/DL Uric Acid 4.7 MG/DL Alkaline Phosphatase 443 U/L Aspartate Amino Transf (AST/SGOT) 27 U/L Alanine Aminotransferase (ALT/SGPT) 25 U/L Lactate Dehydrogenase 833 U/L Total Bilirubin 0.6 MG/DL Sodium Level 137 MEQ/L Potassium Level 4.7 MEQ/L Chloride Level 106 MEQ/L Carbon Dioxide Level 18.3 MEQ/L Anion Gap 13 MEQ/L Estimat Glomerular Filtration Rate 77 ML/MIN Administered Medications Medications (Trade) Dose Ordered Sig/Sierra Route PRN Reason Start Time Stop Time Status Last Admin Dose Admin Sodium Chloride (NS Flush) 2 ml BID IV FLUSH 11/12/17 21:00 11/14/17 10:35 Insulin Aspart (NovoLOG SUPPLEMENTAL SCALE) 1 ACHS SLIDING SCALE SQ 11/12/17 21:00 11/14/17 20:11 Metformin HCl (Glucophage) 500 mg BIDPC PO 11/12/17 18:30 11/14/17 18:01 Sitagliptin Phosphate (Januvia) 100 mg DAILY PO 11/13/17 09:00 11/14/17 09:14 Lisinopril (Prinivil) 20 mg DAILY PO 11/13/17 09:00 11/14/17 09:14 Tamsulosin HCl (Flomax) 0.4 mg DAILY PO 11/12/17 18:30 11/14/17 09:14 Allopurinol (Zyloprim) 300 mg BID PO 11/12/17 21:00 11/14/17 20:13 Sodium Chloride 1,000 ml @ 75 mls/hr [id number] IV 11/13/17 04:45 11/15/17 07:51 Granisetron HCl 1 mg/Dexamethasone Sodium Phosphate 12 mg/Sodium Chloride 54 ml @ 324 mls/hr Q24H IV 11/13/17 16:30 11/16/17 16:39 11/14/17 16:02 Cytarabine 2000 mg/Sodium Chloride 500 ml @ 166.667 mls/hr Q24H IV 11/13/17 17:00 11/16/17 19:59 11/14/17 16:54 Clonazepam (KlonoPIN) 1 mg HS PO 11/13/17 21:00 11/14/17 20:13 Dexamethasone Sodium Phosphate (Decadron Opth 0.1% Soln) 1 drop Q6HR EACH EYE 11/14/17 08:45 11/15/17 05:41 Objective Remarks GENERAL: pleasant elderly male, upright in chair in room, eating breakfast. SKIN: Warm and dry. left hip bandage with dried blood, small bruise. small bruise on left forearm at site of former IV. dried blood noted around PICC line site right arm, no active bleeding noted. HEAD: Normocephalic. MOUTH: no oral ulcers visible EYES: No injection or drainage. NECK: Supple, trachea midline. CARDIOVASCULAR: Regular rate and rhythm RESPIRATORY: Breath sounds equal bilaterally. No accessory muscle use. GASTROINTESTINAL: Abdomen soft, non-tender, nondistended. EXTREMITIES: No cyanosis NEUROLOGICAL: no obvious focal deficit. Assessment/Plan Assessment 77-year-old male with with a diagnosis of chronic neutrophilic leukemia, admitted in suspected accelerated phase for cytoreductive chemotherapy with FLOR- C. + C. diff. History: over the past several months his WBC count has been increasing and despite systemic therapeutic interventions consisting of cytoreductive therapy with hydroxyurea, disease modifying therapy with interferon and targeted therapy consisting of Jakafi the patient has not responded. the week of admission WBC count doubled from 100,000-210,000, +significant metamyelocytes, myelocytes and promyelocytes in circulation. Blast cells are not definitively noted. Plan 1. Chronic neutrophilic leukemia: s/p PICC line placement on 11/13. Day 3 (out of 4) of Cytarabine at 1000mg/m2. continue Decadron eye drops for prophylaxis. 2. Tumor lysis syndrome prophylaxis: on NS @ 75cc/hr. monitor CMP, uric acid, LDH, phosphorus and magnesium. no sign of TLS today. 3. Diabetes: on Januvia + Metformin with SSI. monitor glucose 4. Severe thrombocytopenia and anemia: hgb 7.1 today. no transfusion. will monitor as patient is asymptomatic and still with significantly elevated WBC. 5. Diarrhea: + C. diff. start PO Flagyl. may switch to PO Vanco if he does not respond to PO Flagyl Attending Statement The exam, history, and the medical decision-making described in the above note were completed with the assistance of the mid-level provider. I reviewed and agree with the findings presented. I attest that I had a [id number] encounter with the patient on the same day, and personally performed and documented my assessment and findings in the medical record. Patient seen and examined, vital signs, labs, medications overnight events and microbiology reviewed. Subjectively; he reports having up to 1-2 loose bowel movements daily. He denies fevers, chills or night sweats. He reports his breathing is stable. He denies further chest pain. He is tolerating chemotherapy with cytarabine without significant difficulties. He will be due for day 3 cytarabine infusion later today and then day for tomorrow. His son and daughter are with him in the room today, they had several questions regarding the new diagnosis of C. difficile colitis, appropriate management of C. difficile colitis as well as overall goals of care with pertinence to his diagnosis of chronic neutrophilic leukemia. They wish to discuss the expectations from current treatment with cytarabine as well as long-term goals. The questions were answered, explained initial treatment for C. difficile colitis will consist of oral metronidazole. He is on this at this time. I do expect his diarrhea to improve. For short-term management of his chronic neutrophilic leukemia, he will remain on cytarabine for total of 4 doses. I may add on an additional cycle at some point in the future for further cytoreduction. For the long-term I would like him to start a tyrosine kinase inhibitor such as Nilotinib. Effectiveness of this is hard to predict given The atypical nature of his disease and additional dyspoietic findings noted on bone marrow biopsy. Final results bone marrow biopsies pending at this time. Disposition: Continue systemic Chemotherapy with cytarabine. Continue supportive transfusions. IV fluid hydration for TLS prophylaxis. Akanksha Carballo Nov 15, 2017 09:22 Timoteo Mac MD Nov 15, 2017 12:08
[2017-11-15] MEDS: metroNIDAZOLE 500 MG TAB PO SCH ×2 (13:07→23:11)
[2017-11-15] MEDS: GRANISETRON IV SCH (15:26)
[2017-11-15] MEDS: SODIUM CHLORIDE 0.9% IV SCH (15:26)
[2017-11-15] MEDS: DEXAMETHASONE IV SCH (15:26)
[2017-11-15] MEDS: CYTARABINE IV SCH (16:57)
[2017-11-15] MEDS: SODIUM CHLORID 0.9% IV SCH (16:57)
[2017-11-15] MEDS: clonazePAM 1 MG TAB PO SCH (19:57)
[2017-11-16] VITALS (18 sets, daily range): BP systolic 129–158; BP diastolic 72–83; PULSE 74–106; RESP 18; TEMP 97.4–97.9; O2SAT 97–100
[2017-11-16 04:36] LABS: HEMATOCRIT 22.4 % (39.0-51.0); MEAN CELL VOLUME 98.6 FL (80.0-100.0); MEAN CORPUSCULAR HEMOGLOBIN 30.6 PG (27.0-34.0); MEAN CORPUSCULAR HGB CONC 31.1 % (32.0-36.0); MEAN PLATELET VOLUME 8.4 FL (7.0-11.0); RED BLOOD COUNT 2.27 MIL/MM3 (4.50-5.90); RED CELL DISTRIBUTION WIDTH 21.8 % (11.6-17.2); WHITE BLOOD COUNT 145.3 TH/MM3 (4.0-11.0)
[2017-11-16 04:52] LABS: PLATELET COUNT 15 TH/MM3 (150-450)
[2017-11-16 05:08] LABS: CHLORIDE 106 MEQ/L (98-107); GLUCOSE,RANDOM 199 MG/DL (74-106); SODIUM (NA) 137 MEQ/L (136-145)
[2017-11-16 05:15] LABS: ALBUMIN 3.6 GM/DL (3.4-5.0); ALKALINE PHOSPHATASE 361 U/L (45-117); ALT (GPT) 26 U/L (12-78); AST (GOT) 25 U/L (15-37); BICARBONATE 18.5 MEQ/L (21.0-32.0); BLOOD UREA NITROGEN 30 MG/DL (7-18); CREATININE 0.81 MG/DL (0.60-1.30); GLOMERULAR FILTRATION RATE 92 ML/MIN (>89); TOTAL BILIRUBIN ADULT 0.9 MG/DL (0.2-1.0); TOTAL PROTEIN 6.7 GM/DL (6.4-8.2)
[2017-11-16] MEDS: metroNIDAZOLE 500 MG TAB PO SCH ×3 (05:54→21:25)
[2017-11-16] MEDS: DEXAMETHASONE SOD PHOS 0.1% OPHT SOLN 5 ML BTL EACH EYE SCH ×4 (05:54→23:14)
[2017-11-16 08:14] LABS: BANDS 22 % (0-6); LYMPHOCYTES 3 % (9-44); METAMYELOCYTES 1 % (0-1); NEUTROPHIL # MANUAL DIFF 140.9 TH/MM3 (1.8-7.7); POLYS (SEG NEUTROPHILS) 74 % (16-70)
[2017-11-16 08:15] LABS: BURR CELLS 1+ (NORMAL)
[2017-11-16] MEDS: DOCUSATE SODIUM 50 MG/SENNA 8.6 MG TAB PO SCH ×2 (08:22→21:00)
[2017-11-16] MEDS: metFORMIN HCL 500 MG TAB PO SCH ×2 (08:25→18:33)
[2017-11-16] MEDS: SODIUM CHLORIDE 0.9% FLUSH 10 ML FLUSH IV FLUSH SCH ×2 (08:25→21:00)
[2017-11-16] MEDS: ALLOPURINOL 300 MG TAB PO SCH ×2 (08:25→21:25)
[2017-11-16] MEDS: LISINOPRIL 20 MG TAB PO SCH (08:25)
--- NOTE | 2017-11-16 08:53 | PD.ONC.PN ---
Subjective Subjective Remarks Patient seen and examined, vital signs, labs and medications reviewed, overnight events reviewed. Patient reports having had fecal incontinence earlier this morning, he reports his stool was well formed by he was unable to make it to the restroom in time. He tells me more than anything this was very embarrassing for him. He is however believe that the diarrhea is improved and the stools are more formed. He reports no difficulties with therapy infusions, yesterday he tolerated his third dose of cytarabine without difficulties or complications. He denies fevers, chills, difficulty breathing, palpitations or chest pain. He reports his appetite is good and he has been ambulating in the room. Objective Data Date Time Temp Pulse Resp B/P (MAP) Pulse Ox O2 Delivery O2 Flow Rate FiO2 11/16/17 05:00 98 11/16/17 04:17 100 Room Air 11/16/17 04:17 97.7 99 18 158/79 (105) 97 11/16/17 04:00 104 11/16/17 04:00 96 11/16/17 03:00 74 11/16/17 02:00 74 11/16/17 01:00 84 11/16/17 00:00 82 11/16/17 00:00 85 11/15/17 23:09 97.6 90 16 125/67 (86) 98 11/15/17 23:00 76 11/15/17 22:00 86 11/15/17 21:44 99 Nasal Cannula 2.00 11/15/17 21:00 86 11/15/17 20:00 97.9 96 18 150/81 (104) 99 11/15/17 20:00 98 11/15/17 20:00 99 Nasal Cannula 2.00 11/15/17 20:00 92 11/15/17 19:00 98 11/15/17 17:11 97.7 91 18 155/78 (103) 99 11/15/17 16:50 95 11/15/17 12:30 98.4 97 18 143/78 (99) 96 11/15/17 12:20 97 11/15/17 09:17 98 Nasal Cannula 2.00 11/16/17 11/16/17 11/16/17 07:00 15:00 23:00 Intake Total 1485 ml Output Total 700 ml Balance 785 ml Result Diagram: 11/16/17 0425 11/16/175 Laboratory Results Laboratory Tests Test 11/16/17 04:25 White Blood Count 145.3 TH/MM3 Red Blood Count 2.27 MIL/MM3 Hemoglobin 7.0 GM/DL Hematocrit 22.4 % Mean Corpuscular Volume 98.6 FL Mean Corpuscular Hemoglobin 30.6 PG Mean Corpuscular Hemoglobin Concent 31.1 % Red Cell Distribution Width 21.8 % Platelet Count 15 TH/MM3 Mean Platelet Volume 8.4 FL CBC Comment AUTO DIFF Differential Total Cells Counted 100 Neutrophils % (Manual) 74 % Band Neutrophils % 22 % Lymphocytes % 3 % Neutrophils # (Manual) 140.9 TH/MM3 Metamyelocytes 1 % Differential Comment FINAL DIFF MANUAL Platelet Estimate RARE Platelet Morphology Comment NORMAL Karel Cells 1+ Blood Urea Nitrogen 30 MG/DL Creatinine 0.81 MG/DL Random Glucose 199 MG/DL Total Protein 6.7 GM/DL Albumin 3.6 GM/DL Calcium Level 8.0 MG/DL Uric Acid 4.1 MG/DL Alkaline Phosphatase 361 U/L Aspartate Amino Transf (AST/SGOT) 25 U/L Alanine Aminotransferase (ALT/SGPT) 26 U/L Lactate Dehydrogenase 545 U/L Total Bilirubin 0.9 MG/DL Sodium Level 137 MEQ/L Potassium Level 4.6 MEQ/L Chloride Level 106 MEQ/L Carbon Dioxide Level 18.5 MEQ/L Anion Gap 13 MEQ/L Estimat Glomerular Filtration Rate 92 ML/MIN Administered Medications Medications (Trade) Dose Ordered Sig/Sierra Route PRN Reason Start Time Stop Time Status Last Admin Dose Admin Sodium Chloride (NS Flush) 2 ml BID IV FLUSH 11/12/17 21:00 11/15/17 09:20 Insulin Aspart (NovoLOG SUPPLEMENTAL SCALE) 1 ACHS SLIDING SCALE SQ 11/12/17 21:00 11/15/17 20:06 Metformin HCl (Glucophage) 500 mg BIDPC PO 11/12/17 18:30 11/16/17 08:25 Sitagliptin Phosphate (Januvia) 100 mg DAILY PO 11/13/17 09:00 11/16/17 08:25 Lisinopril (Prinivil) 20 mg DAILY PO 11/13/17 09:00 11/16/17 08:25 Allopurinol (Zyloprim) 300 mg BID PO 11/12/17 21:00 11/16/17 08:25 Sodium Chloride 1,000 ml @ 75 mls/hr [id number] IV 11/13/17 04:45 11/15/17 23:16 Granisetron HCl 1 mg/Dexamethasone Sodium Phosphate 12 mg/Sodium Chloride 54 ml @ 324 mls/hr Q24H IV 11/13/17 16:30 11/16/17 16:39 11/15/17 15:26 Cytarabine 2000 mg/Sodium Chloride 500 ml @ 166.667 mls/hr Q24H IV 11/13/17 17:00 11/16/17 19:59 11/15/17 16:57 Clonazepam (KlonoPIN) 1 mg HS PO 11/13/17 21:00 11/15/17 19:57 Dexamethasone Sodium Phosphate (Decadron Opth 0.1% Soln) 1 drop Q6HR EACH EYE 11/14/17 08:45 11/16/17 05:54 Metronidazole (Flagyl) 500 mg Q8HR PO 11/15/17 14:00 11/16/17 05:54 Tamsulosin HCl (Flomax) 0.4 mg HS PO 11/15/17 21:00 11/15/17 19:57 Objective Remarks GENERAL: Elderly male, he appears to be pale, he is in no acute distress, he is accompanied by his daughter. SKIN: Skin is pale, cool, dry, small petechiae noted over the abdomen, some bruises scattered over the upper and lower 70s. HEAD: Atraumatic. Normocephalic. No temporal or scalp tenderness. EYES: Conjunctivae are pale sclerae are anicteric, EOMI, PERRLA,. ENT: Oral examination: Multiple teeth have been extracted, no obvious masses erythema active bleeding. NECK: Trachea midline. No JVD or lymphadenopathy. Supple, nontender, no meningeal signs. CARDIOVASCULAR: Tachycardic, regular, S1-S2 no obvious murmurs or gallops. RESPIRATORY: Clear to auscultation. Breath sounds equal bilaterally. No wheezes , rales, or rhonchi. GASTROINTESTINAL: Abdomen soft, non-tender, nondistended. No hepato-splenomegaly , or palpable masses. No guarding. MUSCULOSKELETAL: Extremities without clubbing, cyanosis, or edema. No joint tenderness, effusion, or edema noted. No calf tenderness. Negative Homans sign bilaterally. Generally decreased muscle mass NEUROLOGICAL: Awake and alert. Cranial nerves II through XII intact. Motor and sensory grossly within normal limits. Five out of 5 muscle strength in all muscle groups. Normal speech. Assessment/Plan Assessment 77-year-old male with with a diagnosis of chronic neutrophilic leukemia, admitted in suspected accelerated phase for cytoreductive chemotherapy with FLOR- C. + C. diff. History: over the past several months his WBC count has been increasing and despite systemic therapeutic interventions consisting of cytoreductive therapy with hydroxyurea, disease modifying therapy with interferon and targeted therapy consisting of Jakafi the patient has not responded. the week of admission WBC count doubled from 100,000-210,000, +significant metamyelocytes, myelocytes and promyelocytes in circulation. Blast cells are not definitively noted. Plan 1. Chronic neutrophilic leukemia: s/p PICC line placement on 11/13. Day 4 (out of 4) of Cytarabine at 1000mg/m2. continue Decadron eye drops for prophylaxis. WBC count down from over 210,000 down to 145,000 approximately. He remains anemic and thrombocytopenic. Supportive transfusions for anemia and thrombocytopenia to continue, HLA match platelets seem to work the best. Await final results of bone marrow core biopsy which was performed on , 11/12/2017. 2. Tumor lysis syndrome prophylaxis: on NS @ 75cc/hr. monitor CMP, uric acid, LDH, phosphorus and magnesium. no sign of TLS today. LDH is trending down. 3. Diabetes: on Januvia + Metformin with SSI. monitor glucose levels, these have been elevated and he has been requiring supplemental doses of insulin. 4. Severe thrombocytopenia and anemia: hgb 7.1 today. no transfusion. will monitor as patient is asymptomatic and still with significantly elevated WBC. 5. Diarrhea: + C. diff. start PO Flagyl. may switch to PO Vanco if he does not respond to PO Flagyl. Timoteo Mac MD Nov 16, 2017 08:53
[2017-11-16] MEDS: INSULIN ASPART SUPPLEMENTAL SCALE SQ SCH ×4 (09:15→21:21)
[2017-11-16] MEDS: SODIUM CHLOR 0.9% 1000 ML INJ 1,000 ML IV SCH (11:32)
[2017-11-16] MEDS: SODIUM CHLORIDE 0.9% IV SCH (16:56)
[2017-11-16] MEDS: GRANISETRON IV SCH (16:56)
[2017-11-16] MEDS: DEXAMETHASONE IV SCH (16:56)
[2017-11-16] MEDS: CYTARABINE IV SCH (18:37)
[2017-11-16] MEDS: SODIUM CHLORID 0.9% IV SCH (18:37)
[2017-11-16] MEDS: clonazePAM 1 MG TAB PO SCH (21:25)
[2017-11-16] MEDS: TAMSULOSIN HCL 0.4 MG CAP PO SCH (21:25)
[2017-11-17] VITALS (13 sets, daily range): BP systolic 124–144; BP diastolic 68–76; PULSE 76–110; RESP 16–18; TEMP 97.5–98; O2SAT 98–100
[2017-11-17] MEDS: SODIUM CHLOR 0.9% 1000 ML INJ 1,000 ML IV SCH ×2 (02:05→04:12)
[2017-11-17] MEDS: DEXAMETHASONE SOD PHOS 0.1% OPHT SOLN 5 ML BTL EACH EYE SCH ×3 (05:29→18:49)
[2017-11-17] MEDS: metroNIDAZOLE 500 MG TAB PO SCH ×2 (05:29→13:53)
[2017-11-17] MEDS ORDERED: diphenhydrAMINE HCL 25 MG CAP PO PRN (08:00)
[2017-11-17] MEDS ORDERED: SODIUM CHLOR 0.9% 250 ML INJ 250 ML IV ONE ×2 (08:00→09:45)
--- NOTE | 2017-11-17 08:01 | PD.ONC.PN ---
Subjective Subjective Remarks Patient seen and examined, vital signs, labs, medications and overnight events reviewed. Subjectively; patient reports feeling well, he denies any more chest pain, difficulty breathing or overt bleeding. He tells me his stools are more formed at this timeBut he does have fecal urgency. He also conveys his desire to be discharged home today. Objective Data Date Time Temp Pulse Resp B/P (MAP) Pulse Ox O2 Delivery O2 Flow Rate FiO2 11/17/17 04:08 97.5 94 18 132/71 (91) 98 11/17/17 04:03 91 11/17/17 03:00 98 11/17/17 02:00 102 11/17/17 01:00 76 11/17/17 00:04 78 11/16/17 23:16 97.9 94 18 129/72 (91) 99 11/16/17 23:00 82 11/16/17 23:00 82 11/16/17 22:00 88 11/16/17 21:25 Nasal Cannula 2.00 21 11/16/17 21:00 86 11/16/17 20:08 89 11/16/17 20:00 97.7 91 18 147/82 (103) 99 11/16/17 19:00 92 11/16/17 15:26 97.5 106 18 156/83 (107) 98 11/16/17 12:25 97.4 94 18 144/76 (98) 100 11/16/17 10:31 99 21 11/16/17 08:11 97.4 96 18 152/83 (106) 100 11/16/17 08:11 Room Air 11/17/17 11/17/17 11/17/17 07:00 15:00 23:00 Output Total 1000 ml Balance -1000 ml Result Diagram: 11/16/17 0425 11/16/17 0425 Administered Medications Medications (Trade) Dose Ordered Sig/Sierra Route PRN Reason Start Time Stop Time Status Last Admin Dose Admin Sodium Chloride (NS Flush) 2 ml BID IV FLUSH 11/12/17 21:00 11/15/17 09:20 Insulin Aspart (NovoLOG SUPPLEMENTAL SCALE) 1 ACHS SLIDING SCALE SQ 11/12/17 21:00 11/16/17 21:21 Metformin HCl (Glucophage) 500 mg BIDPC PO 11/12/17 18:30 11/16/17 18:33 Sitagliptin Phosphate (Januvia) 100 mg DAILY PO 11/13/17 09:00 11/16/17 08:25 Lisinopril (Prinivil) 20 mg DAILY PO 11/13/17 09:00 11/16/17 08:25 Allopurinol (Zyloprim) 300 mg BID PO 11/12/17 21:00 11/16/17 21:25 Sodium Chloride 1,000 ml @ 75 mls/hr [id number] IV 11/13/17 04:45 11/17/17 04:12 Clonazepam (KlonoPIN) 1 mg HS PO 11/13/17 21:00 11/16/17 21:25 Dexamethasone Sodium Phosphate (Decadron Opth 0.1% Soln) 1 drop Q6HR EACH EYE 11/14/17 08:45 11/17/17 05:29 Metronidazole (Flagyl) 500 mg Q8HR PO 11/15/17 14:00 11/17/17 05:29 Tamsulosin HCl (Flomax) 0.4 mg HS PO 11/15/17 21:00 11/16/17 21:25 Objective Remarks GENERAL: Elderly male, he appears to be pale, he is in no acute distress, he is accompanied by his daughter. SKIN: Skin is pale, cool, dry, small petechiae noted over the abdomen, some bruises scattered over the upper and lower 70s. HEAD: Atraumatic. Normocephalic. No temporal or scalp tenderness. EYES: Conjunctivae are pale sclerae are anicteric, EOMI, PERRLA,. ENT: Oral examination: Multiple teeth have been extracted, no obvious masses erythema active bleeding. NECK: Trachea midline. No JVD or lymphadenopathy. Supple, nontender, no meningeal signs. CARDIOVASCULAR: Tachycardic, regular, S1-S2 no obvious murmurs or gallops. RESPIRATORY: Clear to auscultation. Breath sounds equal bilaterally. No wheezes , rales, or rhonchi. GASTROINTESTINAL: Abdomen soft, non-tender, nondistended. No hepato-splenomegaly , or palpable masses. No guarding. MUSCULOSKELETAL: Extremities without clubbing, cyanosis, or edema. No joint tenderness, effusion, or edema noted. No calf tenderness. Negative Homans sign bilaterally. Generally decreased muscle mass NEUROLOGICAL: Awake and alert. Cranial nerves II through XII intact. Motor and sensory grossly within normal limits. Five out of 5 muscle strength in all muscle groups. Normal speech. Assessment/Plan Assessment 77-year-old male with with a diagnosis of chronic neutrophilic leukemia, admitted in suspected accelerated phase for cytoreductive chemotherapy with FLOR- C. + C. diff. History: over the past several months his WBC count has been increasing and despite systemic therapeutic interventions consisting of cytoreductive therapy with hydroxyurea, disease modifying therapy with interferon and targeted therapy consisting of Jakafi the patient has not responded. the week of admission WBC count doubled from 100,000-210,000, +significant metamyelocytes, myelocytes and promyelocytes in circulation. Blast cells are not definitively noted. Plan 1. Chronic neutrophilic leukemia: s/p PICC line placement on 11/13. Cytarabine at 1000mg/m2 daily 4 doses completed on 11/16/2017. Await CBC results drawn this morning. CMP also drawn this morning. Platelet counts were noted to be 15,000 yesterday, I have ordered transfusion of the HLA matched unit the blood bank is holding. 2. Tumor lysis syndrome prophylaxis: on NS @ 75cc/hr. monitor CMP, uric acid, LDH, phosphorus and magnesium. no sign of TLS today. LDH is trending down. 3. Diabetes: on Januvia + Metformin with SSI. monitor glucose levels, these have been elevated and he has been requiring supplemental doses of insulin. 4. Diarrhea: + C. diff. start PO Flagyl. may switch to PO Vanco if he does not respond to PO Flagyl. Disposition: He will be cleared for discharge home later today. Transfuse 1 unit HLA match platelets prior to discharge. If his hemoglobin is less than 7 g/dL that he will also require 1 unit packed red blood cell transfusion prior to discharge. He will require repeat labs including CBC and CMP on 11/19/2017 at my [place] office. Timoteo Mac MD Nov 17, 2017 08:00
--- NOTE | 2017-11-17 08:07 | HHI.DS ---
Discharge Summary Admission Date Nov 12, 2017 at 15:56 Discharge Date: Nov 17, 2017 Admitting Diagnosis Chronic neutrophilic leukemia. Severe anemia Severe thrombus cytopenia Hyperleukocytosis (1) Chronic neutrophilic leukemia Diagnosis: Principal ICD Codes: D47.1 - Chronic myeloproliferative disease (2) Anemia Diagnosis: Secondary ICD Codes: D64.9 - Anemia, unspecified (3) Thrombocytopenia Diagnosis: Secondary ICD Codes: D69.6 - Thrombocytopenia, unspecified Status: Chronic (4) C. difficile colitis ICD Codes: A04.72 - Enterocolitis due to Clostridium difficile, not specified as recurrent Status: Acute Procedures 11/12/2017: Patient underwent left posterior iliac crest core biopsy and attempted bone marrow aspiration. 11/13/2017: Patient underwent right brachial vein PICC line placement. Brief History This is a 77-year-old man with a diagnosis of chronic neutrophilic leukemia established about a year ago, he had been on cytoreductive therapy and other targeted agents as well as immunotherapy in the past. He had not been responding to therapeutic interventions and over the past 1 week prior to hospitalization he had a significant increase in his WBC count from a baseline of approximately 90,000 up to 240,000. The primary concern was his disease progressing to an accelerated phase or acute myeloid leukemia. He was admitted to the hospital, bone marrow biopsy was performed to rule out disease progression and he was initiated on cytoreductive systemic therapy with cytarabine. He was dosed between 11/13/2017 at 11/16/2017 a dose of 1000 mg per metered squared daily. He was noted to have a response in his WBC count with a WBC count dropping down from 247,000 down to 145,000. The patient was noted during this hospitalization to have C. difficile colitis, he was initiated on metronidazole 500 mg p.o. 3 times daily. For management of thrombocytopenia and anemia he did require supportive red blood cell transfusions and HLA matched platelet transfusions. On 11/17/2017 he was noted to be in stable condition, pending results of his CBC he should be cleared for discharge. Outpatient follow-up will be arranged. CBC/BMP: 11/16/17 0425 11/16/17 0425 Significant Findings Laboratory Tests Test 11/15/17 04:35 11/16/17 04:25 White Blood Count 217.3 TH/MM3 (4.0-11.0) 145.3 TH/MM3 (4.0-11.0) Red Blood Count 2.38 MIL/MM3 (4.50-5.90) 2.27 MIL/MM3 (4.50-5.90) Hemoglobin 7.1 GM/DL (13.0-17.0) 7.0 GM/DL (13.0-17.0) Hematocrit 23.9 % (39.0-51.0) 22.4 % (39.0-51.0) Mean Corpuscular Volume 100.1 FL (80.0-100.0) Mean Corpuscular Hemoglobin Concent 29.8 % (32.0-36.0) 31.1 % (32.0-36.0) Red Cell Distribution Width 22.9 % (11.6-17.2) 21.8 % (11.6-17.2) Platelet Count 23 TH/MM3 (150-450) 15 TH/MM3 (150-450) Neutrophils % (Manual) 71 % (16-70) 74 % (16-70) Band Neutrophils % 20 % (0-6) 22 % (0-6) Neutrophils # (Manual) 215.1 TH/MM3 (1.8-7.7) 140.9 TH/MM3 (1.8-7.7) Metamyelocytes 3 % (0-1) Myelocytes 5 % (0-0) Platelet Estimate LOW (NORMAL) RARE (NORMAL) Ovalocytes 1+ (NORMAL) Blood Urea Nitrogen 25 MG/DL (7-18) 30 MG/DL (7-18) Random Glucose 185 MG/DL (74-106) 199 MG/DL (74-106) Calcium Level 7.9 MG/DL (8.5-10.1) 8.0 MG/DL (8.5-10.1) Alkaline Phosphatase 443 U/L (45-117) 361 U/L (45-117) Lactate Dehydrogenase 833 U/L (87-241) 545 U/L (87-241) Carbon Dioxide Level 18.3 MEQ/L (21.0-32.0) 18.5 MEQ/L (21.0-32.0) Estimat Glomerular Filtration Rate 77 ML/MIN (>89) Lymphocytes % 3 % (9-44) Karel Cells 1+ (NORMAL) PE at Discharge Please see my note dated 11/17/2017. Physical exam has been charted in that note. Hospital Course Patient received cytoreductive chemotherapy with cytarabine between 11/13/2017 and 11/16/2017. He had no major acute or delayed adverse effects related to treatment. Appropriate platelet and red cell transfusions were provided. He was maintained on IV fluid hydration for tumor lysis syndrome prophylaxis, in addition to this she remained on allopurinol. During hospitalization he did develop diarrhea, stool for C. difficile PCR was positive. He was initiated on metronidazole with clinical improvement and improvement in the diarrhea. Pt Condition on Discharge: Fair Discharge Disposition: Discharge Home Discharge Instructions DIET: Follow Instructions for: As Tolerated, No Restrictions Speech Therapy-Diet Recommenda: Regular Activities you can perform: Regular-No Restrictions Activities to avoid: Driving for 24 hrs Timoteo Mac MD Nov 17, 2017 08:06
[2017-11-17 08:59] LABS: MEAN CELL VOLUME 100.7 FL (80.0-100.0); MEAN CORPUSCULAR HEMOGLOBIN 30.2 PG (27.0-34.0); MEAN PLATELET VOLUME 8.8 FL (7.0-11.0); RED BLOOD COUNT 2.26 MIL/MM3 (4.50-5.90); RED CELL DISTRIBUTION WIDTH 22.4 % (11.6-17.2); WHITE BLOOD COUNT 87.2 TH/MM3 (4.0-11.0)
[2017-11-17] MEDS: SODIUM CHLORIDE 0.9% FLUSH 10 ML FLUSH IV FLUSH SCH (09:00)
[2017-11-17] MEDS: DOCUSATE SODIUM 50 MG/SENNA 8.6 MG TAB PO SCH (09:00)
[2017-11-17 09:08] LABS: HEMATOCRIT 22.8 % (39.0-51.0); HEMOGLOBIN 6.8 GM/DL (13.0-17.0); PLATELET COUNT 13 TH/MM3 (150-450)
[2017-11-17] MEDS: LISINOPRIL 20 MG TAB PO SCH (09:35)
[2017-11-17] MEDS: metFORMIN HCL 500 MG TAB PO SCH ×2 (09:35→18:49)
[2017-11-17] MEDS: ALLOPURINOL 300 MG TAB PO SCH (09:36)
[2017-11-17] MEDS: INSULIN ASPART SUPPLEMENTAL SCALE SQ SCH ×3 (09:44→18:46)
[2017-11-17] MEDS ORDERED: FUROSEMIDE 20 MG/2 ML VIAL IV PUSH ONE (09:45)
[2017-11-17 09:57] LABS: BANDS 33 % (0-6); BURR CELLS 1+ (NORMAL); MONOCYTES 1 % (0-8); NEUTROPHIL # MANUAL DIFF 86.3 TH/MM3 (1.8-7.7); POLYS (SEG NEUTROPHILS) 66 % (16-70)
[2017-11-17 10:01] LABS: ALBUMIN 3.5 GM/DL (3.4-5.0); AST (GOT) 29 U/L (15-37); BICARBONATE 18.2 MEQ/L (21.0-32.0); BLOOD UREA NITROGEN 29 MG/DL (7-18); CALCIUM 8.1 MG/DL (8.5-10.1); CHLORIDE 103 MEQ/L (98-107); CREATININE 0.92 MG/DL (0.60-1.30); GLOMERULAR FILTRATION RATE 80 ML/MIN (>89); GLUCOSE,RANDOM 257 MG/DL (74-106); SODIUM (NA) 133 MEQ/L (136-145)
[2017-11-17 10:02] LABS: ALT (GPT) 33 U/L (12-78)
[2017-11-17 10:04] LABS: ALKALINE PHOSPHATASE 319 U/L (45-117); TOTAL PROTEIN 6.1 GM/DL (6.4-8.2)
[2017-11-17] MEDS: ACETAMINOPHEN 325 MG TAB PO PRN ×2 (12:09→16:11)
--- NOTE | 2017-11-17 13:04 | HHI.DCPOC ---
Discharge Care Plan Diagnosis: (1) Thrombocytopenia (2) Chronic neutrophilic leukemia (3) C. difficile colitis (4) Anemia Goals to Promote Your Health * To prevent worsening of your condition and complications * To maintain your health at the optimal level Directions to Meet Your Goals Take your medications as prescribed Follow your dietary instruction Follow activity as directed Keep your appointments as scheduled Take your immunizations and boosters as scheduled If your symptoms worsen call your PCP, if no PCP go to Urgent Care Center or Emergency Room Smoking is Dangerous to Your Health. Avoid second hand smoke Call the 24-hour hour crisis hotline for domestic abuse at Akanksha Carballo Nov 17, 2017 13:04
[2017-11-17] MEDS ORDERED: METR-1 PO (13:06)
[2017-11-17] MEDS ORDERED: ALLO300 PO (13:06)
== END 2017-11-17 20:30 | disposition home or self-care (01) | DRG 829 ==
LOC: HCIN 15:56 → HCIS 16:08 → HCIN 17:02
PROVIDERS: ADMIT Internal Medicine Hematology & Oncology; ATTEND Internal Medicine Hematology & Oncology
PROC: 0QB33ZX Excision of Left Pelvic Bone, Percutaneous Approach, Diagnostic (ICD-10-PCS; principal; 2017-11-12)
PROC: 02HV33Z Insertion of Infusion Device into Superior Vena Cava, Percutaneous Approach (ICD-10-PCS; 2017-11-13)
PROC: B548ZZA Ultrasonography of Superior Vena Cava, Guidance (ICD-10-PCS; 2017-11-13)
PROC: B518ZZA Fluoroscopy of Superior Vena Cava, Guidance (ICD-10-PCS; 2017-11-13)
PROC: XW033B3 Introduction of Cytarabine and Daunorubicin Liposome Antineoplastic into Peripheral Vein, Percutaneous Approach, New Technology Group 3 (ICD-10-PCS; 2017-11-13)
PROC: 30233N1 Transfusion of Nonautologous Red Blood Cells into Peripheral Vein, Percutaneous Approach (ICD-10-PCS; 2017-11-13)
PROC: 30233R1 Transfusion of Nonautologous Platelets into Peripheral Vein, Percutaneous Approach (ICD-10-PCS; 2017-11-14)
DX: Z51.11 Encounter for antineoplastic chemotherapy (principal); D61.89 Other specified aplastic anemias and other bone marrow failure syndromes; A04.72 Enterocolitis due to Clostridium difficile, not specified as recurrent; D47.1 Chronic myeloproliferative disease; E11.9 Type 2 diabetes mellitus without complications; I10 Essential (primary) hypertension; D69.6 Thrombocytopenia, unspecified; R07.9 Chest pain, unspecified; R00.0 Tachycardia, unspecified; R15.9 Full incontinence of feces; N40.0 Benign prostatic hyperplasia without lower urinary tract symptoms; K05.6 Periodontal disease, unspecified; R15.2 Fecal urgency; Z79.84 Long term (current) use of oral hypoglycemic drugs; Z87.891 Personal history of nicotine dependence
CPT/HCPCS: 36430; 36569; 76937; 77001; 80053; 82948; 83615; 83735; 84100; 84550; 85007; 85027; 85097; 85610; 85730; 86850; 86900; 86901; 86920; 87493; 88184; 88185; 88230; 88264; 88280; 88305; 88311; 88313; 88341; 88342; C1751; J1100; J1626; J1642; J1815; J1940; J7030; J7040; J7050; J9100; P9016; P9037

== ENCOUNTER 2017-12-01 10:20 | Inpatient (IN) | payer MEDICARE, OTHER ==
[~2017-12-01] VITALS: Ht 170.2 cm; Wt 75.0 kg
[2017-12-01] VITALS (16 sets, daily range): BP systolic 110–143; BP diastolic 53–75; PULSE 100–128; RESP 16–24; TEMP 98.3–99.6; O2SAT 96–100
[~2017-12-01 10:20] MED LIST changes: +ALLO300 PO; -IBUP400T20 PO; +METR-1 PO
--- NOTE | 2017-12-01 11:11 | PD ---
HPI Chief Complaint: Abnormal Results Time Seen by Provider: 10:44 Travel History International Travel<30 days: No Contact w/Intl Traveler<30days: No Traveled to known affect area: No History of Present Illness HPI his oncologist dr ramirez states that patient has a rare form of cancer and that there was recent chemo, which has affected his bone marrow greatly, outpatient labs showed (0.1 wbc , hb 5.8, plt 2)...the patient c/o chills so dr ramirez is requesting broad spectrum abx, hla matched platelets, rbc transfusion which will need to be done as an inpatient. The patient does not have any active complaints, he just gave a history of about a day or 2 worth of chills, however he denies having any type of fever, cough, nausea vomiting diarrhea or rash or sore throat. Patient states that he has a right PICC line which has been in place for approximately 15-16 days, the area around it is not tender nor is it red either according to the patient No known drug allergy Past medical history significant for hypertension, seasonal allergies, cholecystectomy, diabetes, anxiety, thrombocytopenia blood dyscrasia all due to a rare type of cancer CNL PFSH Past Medical History Anxiety: Yes Depression: No Cancer: Yes (CNL) Cardiovascular Problems: Yes Chemotherapy: Yes (BY MOUTH ) Diabetes: Yes Endocrine: Yes Genitourinary: No Hepatitis: No Hiatal Hernia: No Immune Disorder: No Musculoskeletal: No Neurologic: No Psychiatric: Yes Reproductive: No Respiratory: Yes (ALLERGIES CAUSE BREATHING TROUBLE) Thyroid Disease: No Past Surgical History Abdominal Surgery: Yes (CHOLECYSTECTOMY) Social History Substance Use: No Allergies-Medications (Allergen,Severity, Reaction): Coded Allergies: No Known Allergies (Unverified Adverse Reaction, Unknown, 12/01/17) Reported Meds & Prescriptions Reported Meds & Active Scripts Active Flagyl (Metronidazole) 500 Mg Tab 500 Mg PO Q8HR 10 Days Zyloprim (Allopurinol) 300 Mg Tab 300 Mg PO BID Reported Benadryl 25 mg tab (Diphenhydramine HCl) 25 Mg Tab 25 Mg PO DAILY Multivitamin (Multivitamins) 1 Tab Tab 1 Tab PO DAILY Flomax (Tamsulosin HCl) 0.4 Mg Cap 0.4 Mg PO HS Clonazepam 1 Mg Tab 1 Mg PO HS Januvia (Sitagliptin Phosphate) 100 Mg Tab 100 Mg PO DAILY Metformin ER 24 HR (Metformin HCl) 1,000 Mg Tab 1,000 Mg PO DAILY Prinivil 40 mg (Lisinopril) 40 Mg Tab 40 Mg PO DAILY Review of Systems General / Constitutional: Positive: Chills Eyes: No: Visual changes HENT: No: Headaches Cardiovascular: No: Chest Pain or Discomfort Respiratory: No: Shortness of Breath Gastrointestinal: No: Abdominal Pain Genitourinary: No: Dysuria Musculoskeletal: No: Pain Skin: No Rash Neurologic: No: Weakness Psychiatric: No: Depression Endocrine: No: Polydipsia Hematologic/Lymphatic: No: Easy Bruising Physical Exam Narrative GENERAL: Cachectic SKIN: Warm and dry. Pale HEAD: Atraumatic. Normocephalic. EYES: Pupils equal and round. No scleral icterus. No injection or drainage. ENT: No nasal bleeding or discharge. Mucous membranes pink and moist. NECK: Trachea midline. No JVD. CARDIOVASCULAR: Regular rate and rhythm. RESPIRATORY: No accessory muscle use. Clear to auscultation. Breath sounds equal bilaterally. GASTROINTESTINAL: Abdomen soft, non-tender, nondistended. MUSCULOSKELETAL: Extremities without clubbing, cyanosis, or edema. No obvious deformities. Right arm PICC line in place, no cellulitic changes, no lymphangitic changes noted. NEUROLOGICAL: Awake and alert. No obvious cranial nerve deficits. Motor grossly within normal limits. Five out of 5 muscle strength in the arms and legs. Normal speech. PSYCHIATRIC: Appropriate mood and affect; insight and judgment normal. Data Data Last Documented VS Vital Signs Date Time Temp Pulse Resp B/P (MAP) Pulse Ox O2 Delivery O2 Flow Rate FiO2 12/01/17 11:16 96 Room Air 12/01/17 10:35 98.6 128 19 133/63 (86) Orders Orders Sepsis Workup Initiated (12/01/17 ) Complete Blood Count With Diff (12/01/17 10:44) Comprehensive Metabolic Panel (12/01/17 10:44) Prothrombin Time / Inr (Pt) (12/01/17 10:44) Act Partial Throm Time (Ptt) (12/01/17 10:44) Lactic Acid Sepsis Protocol (12/01/17 10:44) Lipase (12/01/17 10:44) Troponin I (12/01/17 10:44) Urinalysis - C+S If Indicated (12/01/17 10:44) Influenzae A/B Antigen (12/01/17 10:44) Blood Culture (12/01/17 10:44) Chest, Single Ap (12/01/17 10:44) Blood Glucose (12/01/17 10:44) Ecg Monitoring (12/01/17 10:44) Iv Access Insert/Monitor (12/01/17 10:44) Oximetry (12/01/17 10:44) Oxygen Administration (12/01/17 10:44) Ct Abd/Pel W/O Iv Contrast (12/01/17 10:44) Red Blood Cells (Rbc) (12/01/17 11:36) Platelet Pheresis Irradiated (12/01/17 11:36) Blood Product Administration (12/01/17 11:36) Sodium Chlor 0.9% 250 Ml Inj (Ns 250 Ml (12/01/17 11:45) Type And Screen (12/01/17 11:36) Labs Laboratory Tests Test 12/01/17 11:00 White Blood Count 1.0 TH/MM3 Red Blood Count 1.95 MIL/MM3 Hemoglobin 6.0 GM/DL Hematocrit 17.2 % Mean Corpuscular Volume 87.9 FL Mean Corpuscular Hemoglobin 30.6 PG Mean Corpuscular Hemoglobin Concent 34.8 % Red Cell Distribution Width 17.7 % Platelet Count 2 TH/MM3 Mean Platelet Volume 12.2 FL CBC Comment AUTO DIFF Prothrombin Time 11.0 SEC Prothromb Time International Ratio 1.1 RATIO Activated Partial Thromboplast Time 17.8 SEC Blood Urea Nitrogen 19 MG/DL Creatinine 0.88 MG/DL Random Glucose 155 MG/DL Total Protein 6.6 GM/DL Albumin 3.4 GM/DL Calcium Level 8.4 MG/DL Alkaline Phosphatase 153 U/L Aspartate Amino Transf (AST/SGOT) 27 U/L Alanine Aminotransferase (ALT/SGPT) 48 U/L Total Bilirubin 0.5 MG/DL Sodium Level 128 MEQ/L Potassium Level 4.4 MEQ/L Chloride Level 97 MEQ/L Carbon Dioxide Level 22.0 MEQ/L Anion Gap 9 MEQ/L Estimat Glomerular Filtration Rate 84 ML/MIN Lactic Acid Level 2.3 mmol/L Troponin I LESS THAN 0.02 NG/ML Lipase 306 U/L MDM Medical Decision Making Medical Screen Exam Complete: Yes Emergency Medical Condition: Yes Medical Record Reviewed: Yes Differential Diagnosis Pancytopenia secondary to chemo versus neutropenic fever Diagnosis Primary Impression: Severe pancytopenia Additional Impression: Possible neutropenic fever Admitting Information Admitting Physician Requests: Admit Efe Renee MD December 01, 2017 11:11
--- NOTE | 2017-12-01 11:29 | RADRPT ---
EXAM DATE/TIME: 12/01/2017 10:53 [facility] COMPARISON: No previous studies available for comparison. INDICATIONS : Fever and shortness of breath. MEDICAL HISTORY : Thrombocytopenia, Leukocytosis, HTN, Diabetes, Severe thrombus cytopenia, Anemia SURGICAL HISTORY : Multiple bone marrow biopsies, Cholecystectomy. ENCOUNTER: Initial ACUITY: 1 day PAIN SCORE: 0/10 LOCATION: Bilateral chest FINDINGS: Right-sided PICC line at the atriocaval junction. No significant focal pleural-parenchymal opacities. Cardiomediastinal contours are within normal limits. Bony thorax is intact. CONCLUSION: 1. Right PICC line tip at the atriocaval junction. 2. No acute cardiopulmonary disease. Jose Marshall MD on December 01, 2017 at 11:26 Board Certified Radiologist. This report was verified electronically.
[2017-12-01 11:30] LABS: MEAN CELL VOLUME 87.9 FL (80.0-100.0); MEAN CORPUSCULAR HEMOGLOBIN 30.6 PG (27.0-34.0); MEAN CORPUSCULAR HGB CONC 34.8 % (32.0-36.0); MEAN PLATELET VOLUME 12.2 FL (7.0-11.0); RED BLOOD COUNT 1.95 MIL/MM3 (4.50-5.90); RED CELL DISTRIBUTION WIDTH 17.7 % (11.6-17.2)
--- NOTE | 2017-12-01 11:32 | RADRPT ---
EXAM DATE/TIME: 12/01/2017 11:14 [facility] COMPARISON: No previous studies available for comparison. INDICATIONS : Possible neutropenic fever, abnormal labs. Chronic neutrophilic leukemia ORAL CONTRAST: No oral contrast ingested. RADIATION DOSE: 11.13 CTDIvol (mGy) MEDICAL HISTORY : Hypertension. Chronic neutrophilic leukemia SURGICAL HISTORY : Cholecystectomy. ENCOUNTER: Initial ACUITY: 1 day PAIN SCALE: 0/10 LOCATION: anterior TECHNIQUE: Volumetric scanning of the abdomen and pelvis was performed. Using automated exposure control and ad justment of the mA and/or kV according to patient size, radiation dose was kept as low as reasonably achievable to obtain optimal diagnostic quality images. DICOM format image data is available electro nically for review and comparison. FINDINGS: There is some groundglass opacity at the lung bases to see in the lower lobes which may represent a m ild infectious infiltrate. No acute findings in the liver, spleen, adrenals or pancreas. Numerous bilateral renal cysts. Largest is on the left side measuring up to 6.8 cm in diameter. Previous cholecystectomy. There is mild constipation. No pelvic mass or free fluid. No adenopathy. No acute bony abnormality. CONCLUSION: 1. Mild groundglass opacity at the bases which may represent a mild infectious infiltrate. No consoli dation or effusion. 2. Previous cholecystectomy. Bilateral renal cysts. No abdominal or pelvic abscess. No obstruction, f ree fluid or free air. Ethan Sharp MD on December 01, 2017 at 11:27 Board Certified Radiologist. This report was verified electronically.
[2017-12-01 11:36] LABS: HEMATOCRIT 17.2 % (39.0-51.0)
[2017-12-01 11:37] LABS: PLATELET COUNT 2 TH/MM3 (150-450)
[2017-12-01 11:41] LABS: ALBUMIN 3.4 GM/DL (3.4-5.0); ALT (GPT) 48 U/L (12-78); AST (GOT) 27 U/L (15-37); BLOOD UREA NITROGEN 19 MG/DL (7-18); CALCIUM 8.4 MG/DL (8.5-10.1); CHLORIDE 97 MEQ/L (98-107); CREATININE 0.88 MG/DL (0.60-1.30); GLOMERULAR FILTRATION RATE 84 ML/MIN (>89); GLUCOSE,RANDOM 155 MG/DL (74-106); SODIUM (NA) 128 MEQ/L (136-145)
[2017-12-01 11:43] LABS: LACTIC ACID SEPSIS PROTOCOL 2.3 mmol/L (0.4-2.0)
[2017-12-01 11:44] LABS: INTERNATIONAL NORMALIZED RATIO 1.1 RATIO
[2017-12-01 11:45] LABS: ALKALINE PHOSPHATASE 153 U/L (45-117); TOTAL BILIRUBIN ADULT 0.5 MG/DL (0.2-1.0); TOTAL PROTEIN 6.6 GM/DL (6.4-8.2); TROPONIN I LESS THAN 0.02 NG/ML (0.02-0.05)
[2017-12-01] MEDS ORDERED: SODIUM CHLOR 0.9% 250 ML INJ 250 ML IV ONE (11:45)
[2017-12-01] MEDS ORDERED: MAGNESIUM HYDROXIDE SUSP 30 ML CUP PO PRN (12:15)
[2017-12-01] MEDS ORDERED: NALOXONE HCL 0.4 MG/ML AMP IV PUSH PRN (12:15)
[2017-12-01] MEDS ORDERED: SENNOSIDES 8.6 MG TAB PO PRN (12:15)
[2017-12-01] MEDS ORDERED: LACTULOSE SYRUP 20 GM/30 ML CUP PO PRN (12:15)
[2017-12-01] MEDS ORDERED: ONDANSETRON HCL 4 MG/2 ML VIAL IVP PRN (12:15)
[2017-12-01] MEDS ORDERED: BISACODYL 10 MG SUPP RECTAL PRN (12:15)
[2017-12-01] MEDS ORDERED: SODIUM CHLORIDE 0.9% FLUSH 10 ML FLUSH IV FLUSH PRN (12:15)
[2017-12-01 12:21] LABS: BANDS 4 % (0-6); CORRECTED NUCLEATED RBC 1 /100 WBC (0-0); LYMPHOCYTES 71 % (9-44); MONOCYTES 25 % (0-8); NUCLEATED RED BLOOD CELL 1 (0-0)
--- NOTE | 2017-12-01 13:27 | PD.CONS ---
History of Present Illness Service Hematology/Oncology Consult Requested By Hospitalist service. Reason for Consult Patient with diagnoses of chronic neutrophilic leukemia. Now presenting with chemotherapy associated pancytopenia with critical thrombocytopenia, critical neutropenia and severe anemia. Primary Care Physician Fawad Mcqueen MD Diagnoses: (1) Chronic neutrophilic leukemia (2) Anemia (3) Thrombocytopenia (4) C. difficile colitis History of Present Illness Chief Complaint: Generalized weakness/fatigue. Bruising over the skin of the arms and legs. Patient reports having sweats last night. History of presenting illness: Mr. 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 The patient had leukocytosis and thrombocytopenia dating back 3 or 4 years however a formal diagnosis of chronic neutrophilic leukemia was not established until March 2017. For management of his CNL the patient had been on cytoreductive therapy with hydroxyurea and subsequently was initiated on interferon which he had no response, in quick succession he was transitioned to oral Jakafi about a month ago at a low dose. He has yet to receive a tyrosine kinase inhibitor. Between September and October 2017 the patient's WBC count was noted to rise very rapidly, he was hospitalized on 11/12/2017 and was initiated on cytoreductive systemic chemotherapy with intermediate dose cytarabine at 1000 mg per metered squared on days 1-4. He was discharged home shortly after completing chemotherapy. Since then he has been monitored in the outpatient setting and has been noted to have progressive cytopenias. Earlier this morning he presented to my [place] office for blood work, he was noted to have an absolute neutrophil count of near 0, platelet count of 2 and hemoglobin of less than 6 g/dL. The patient also reported having chills. He was recommended evaluation at the [facility] emergency department for supportive transfusions as well as neutropenic sepsis workup. Review of Systems Constitutional: COMPLAINS OF: Fatigue, Chills, Dizziness, Change in appetite ( Loss of appetite), DENIES: Diaphoretic episodes, Fever, Weight gain, Weight loss , Night Sweats Endocrine: DENIES: Heat/cold intolerance, Polydipsia, Polyuria, Polyphagia Eyes: DENIES: Blurred vision, Diplopia, Eye inflammation, Eye pain, Vision loss , Photosensitivity, Double Vision Ears, nose, mouth, throat: COMPLAINS OF: Running Nose, DENIES: Tinnitus, Hearing loss, Vertigo, Nasal discharge, Oral lesions, Throat pain, Hoarseness, Ear Pain, Epistaxis, Sinus Pain, Toothache, Odynophagia Respiratory: COMPLAINS OF: Sputum production, DENIES: Apneas, Cough, Snoring, Wheezing, Hemoptysis, Shortness of breath Cardiovascular: COMPLAINS OF: Palpitations, Dyspnea on Exertion, DENIES: Chest pain, Syncope, PND, Lower Extremity Edema, Orthopnea, Claudication Gastrointestinal: COMPLAINS OF: Diarrhea, Anorexia, DENIES: Abdominal pain, Black stools, Bloody stools, Constipation, Nausea, Vomiting, Difficulty Swallowing Genitourinary: COMPLAINS OF: Urinary frequency, DENIES: Sexual dysfunction, Urinary incontinence, Urgency, Hematuria, Dysuria, Nocturia, Penile Discharge, Testicular Pain, Testicular Swelling Musculoskeletal: DENIES: Joint pain, Muscle aches, Stiffness, Joint Swelling, Back pain, Neck pain Integumentary: COMPLAINS OF: Rash, DENIES: Abnormal pigmentation, Nail changes , Pruritus Hematologic/lymphatic: COMPLAINS OF: Bruising, DENIES: Lymphadenopathy Immunologic/allergic: DENIES: Eczema, Urticaria Neurologic: DENIES: Abnormal gait, Headache, Localized weakness, Paresthesias, Seizures, Speech Problems, Tremor, Poor Balance Psychiatric: COMPLAINS OF: Anxiety, Confusion, DENIES: Mood changes, Depression , Hallucinations, Agitation, Suicidal Ideation, Homicidal Ideation, Delusions Except as stated in HPI: all other systems reviewed are Neg Past Family Social History Allergies: Coded Allergies: No Known Allergies (Unverified Allergy, Unknown, 12/01/17) Past Medical History Chronic neutrophilic leukemia Hypertension Diabetes Severe thrombus cytopenia Anemia Periodontal disease. Chemotherapy related myelosuppression Past Surgical History Multiple bone marrow biopsies Cholecystectomy Tonsillectomy Appendectomy Reported Medications Januvia 100 mg once daily Metformin 500 mg p.o. twice daily Lisinopril 20 mg once daily Flomax 0.4 mg once daily. Active Ordered Medications Cefepime 2 g IV every 8 hours Vancomycin 1.25 g every 12 hours Normal saline 100 cc/h Tylenol 650 mg p.o. every 4 hours needed for fever Senna Colace 1 tablet p.o. twice daily as needed for constipation Lactulose 30 mL p.o. daily as needed for severe constipation Magnesium hydroxide 30 mL p.o. every 12 hours needed for constipation Zofran 4 mg IV every 6 hours needed for nausea and vomiting Family History Parents , no known oncologic diagnoses in the family. Social History Retired from the [employer], he is , he lives at home alone. He has a daughter who lives nearby who is very supportive. He reports formally being a smoker having smoked a pack a day for 25 years, he quit 30 years ago. He reports occasional alcohol consumption. Physical Exam Vital Signs Vital Signs Date Time Temp Pulse Resp B/P (MAP) Pulse Ox O2 Delivery O2 Flow Rate FiO2 12/01/17 11:16 96 Room Air 12/01/17 11:16 97 Room Air 12/01/17 11:16 96 Room Air 12/01/17 10:35 98.6 128 19 133/63 (86) 99 Physical Exam GENERAL: Elderly male, sitting up in the gurney, appears to be no acute distress. He is wearing a mask. He does appear pale. SKIN: No rashes, mild bruising noted, extensive petechiae on the extensor surface of the hands and feet. HEAD: Atraumatic. Normocephalic. No temporal or scalp tenderness. EYES: Pupils equal round and reactive. Extraocular motions intact. No scleral icterus. No injection or drainage. Conjunctivae are pale. ENT: Nose without bleeding, purulent drainage or septal hematoma. Throat without erythema, tonsillar hypertrophy or exudate. Uvula midline. Airway patent. Minute petechiae on the soft palate. No active bleeding NECK: Trachea midline. No JVD or lymphadenopathy. Supple, nontender, no meningeal signs. CARDIOVASCULAR: Tachycardic, appears irregular. RESPIRATORY: Clear to auscultation. Breath sounds equal bilaterally. No wheezes , rales, or rhonchi. GASTROINTESTINAL: Abdomen soft, non-tender, nondistended. No hepato-splenomegaly , or palpable masses. No guarding. MUSCULOSKELETAL: Extremities without clubbing, cyanosis, or edema. No joint tenderness, effusion, or edema noted. No calf tenderness. Negative Homans sign bilaterally. NEUROLOGICAL: Awake and alert. Cranial nerves II through XII intact. Motor and sensory grossly within normal limits. Five out of 5 muscle strength in all muscle groups. Normal speech. Laboratory Laboratory Tests Test 12/01/17 11:00 White Blood Count 1.0 Red Blood Count 1.95 Hemoglobin 6.0 Hematocrit 17.2 Mean Corpuscular Volume 87.9 Mean Corpuscular Hemoglobin 30.6 Mean Corpuscular Hemoglobin Concent 34.8 Red Cell Distribution Width 17.7 Platelet Count 2 Mean Platelet Volume 12.2 CBC Comment AUTO DIFF Differential Total Cells Counted 100 Band Neutrophils % 4 Lymphocytes % 71 Monocytes % 25 Neutrophils # (Manual) 0.0 Nucleated Red Blood Cells 1 Differential Comment FINAL DIFF MANUAL Platelet Estimate RARE Platelet Morphology Comment NORMAL Prothrombin Time 11.0 Prothromb Time International Ratio 1.1 Activated Partial Thromboplast Time 17.8 Blood Urea Nitrogen 19 Creatinine 0.88 Random Glucose 155 Total Protein 6.6 Albumin 3.4 Calcium Level 8.4 Alkaline Phosphatase 153 Aspartate Amino Transf (AST/SGOT) 27 Alanine Aminotransferase (ALT/SGPT) 48 Total Bilirubin 0.5 Sodium Level 128 Potassium Level 4.4 Chloride Level 97 Carbon Dioxide Level 22.0 Anion Gap 9 Estimat Glomerular Filtration Rate 84 Lactic Acid Level 2.3 Troponin I LESS THAN 0.02 Lipase 306 Date/Time Source Procedure Growth Status 12/01/17 11:05 Blood Peripheral Aerobic Blood Culture Pending Received 12/01/17 11:05 Blood Peripheral Anaerobic Blood Culture Pending Received 12/01/17 11:07 Nasal Washing Influenza Types A,B Antigen (GUIDO) - Final NEGATIVE FOR FLU A AND B ANTIGEN.... Complete Result Diagram: 12/01/17 1100 12/01/[address] scan of the abdomen pelvis dated 12/01/2017 indicates no evidence of acute pathology. Assessment and Plan Assessment and Plan 77-year-old man with a diagnosis of chronic neutrophilic leukemia, recently treated with cytarabine 1000 mg per metered squared on day 1-8 (between 2017 and 11/16/2017). Going into treatment his WBC count was approximately 250, 000, he now has chemotherapy associated myelosuppression with an absolute neutropenia. Neutrophil count on mannual differential is 0, platelet counts less than 5000 and hemoglobin approximately 6 g/dL. He presents to the hospital for transfusion support and close monitoring. He is at high risk for sepsis, he did have subjective sensation of chills last night. Plan: 1. Chronic neutrophilic leukemia: Further treatment is on hold until his counts recover. I am hopeful he will recover his counts, the profound nature of his current samuel is more than what I had expected with the decreased dose of cytarabine. Initiate supportive transfusions. I will also initiate low- dose Neupogen and treat him at least for the next 3 days. 2. Transfuse random donor platelets today. HLA match platelets will be transfused as soon as they are available. 3. Symptomatic anemia: Transfuse 3 units packed red blood cells today. 4. Subjective sensation of chills: Obtain blood and urine cultures. Empirically initiate cefepime and vancomycin today. 5. Recent history of C. difficile colitis: I will continue oral Flagyl 500 mg p.o. 3 times daily which is what he was on as an outpatient. Problem Qualifiers (1) Anemia: Timoteo Mac MD December 01, 2017 13:27
[2017-12-01] MEDS ORDERED: TASI150C PO (13:38)
[2017-12-01] MEDS ORDERED: SITA1TAB2 PO (13:38)
[2017-12-01] MEDS ORDERED: ROSU1TAB4 PO (13:38)
[2017-12-01] MEDS ORDERED: LISI-515 PO (13:38)
[2017-12-01] MEDS ORDERED: CLON1 PO (13:38)
[2017-12-01] MEDS ORDERED: TAMS0.4C4 PO (13:38)
[2017-12-01] MEDS ORDERED: METF500T4 PO (13:38)
[2017-12-01] MEDS ORDERED: FILGRASTIM 300 MCG/ML VIAL SQ ONE (14:00)
[2017-12-01] MEDS: CEFEPIME INJ 2,000 MG in SODIUM CHLORIDE 0.9% INJ 100 ML IV SCH ×2 (14:00→22:45)
[2017-12-01] MEDS: metroNIDAZOLE 500 MG TAB PO SCH ×2 (15:55→22:32)
--- NOTE | 2017-12-01 17:01 | HHI.HP ---
HPI Service [facility] Hospitalists Primary Care Physician Fawad Mcqueen MD Admission Diagnosis PANCYTOPENIA Diagnoses: Chief Complaint: fever and chills Rash Generalized weakness Travel History International Travel<30 Days: No Contact w/Intl Traveler <30 Da: No Traveled to Known Affected Are: No History of Present Illness Very pleasant 77-year-old man who was diagnosed with chronic neutrophilic leukemia (CNL) . The patient had leukocytosis and thrombocytopenia dating back 3 or 4 years however a formal diagnosis of chronic neutrophilic leukemia was not established until March 2017. For management of his CNL the patient had been on cytoreductive therapy with hydroxyurea and subsequently was initiated on interferon which he had no response, in quick succession he was transitioned a month ago to oral Jakafi low dose. He has yet to receive a tyrosine kinase inhibitor. Between September and October 2017 the patient's WBC count was noted to rise very rapidly, he was hospitalized on 11/12/2017 and was initiated on cytoreductive systemic chemotherapy with intermediate dose cytarabine at 1000 mg per metered squared on days 1-4. He was discharged home shortly after completing chemotherapy. Since then he has been monitored in the outpatient setting and has been noted to have progressive cytopenias. Patient has diarrhea and was started as OP on flagyl po Earlier this morning the patient presented to Dr Mac his oncology office for blood work, he was noted to have an absolute neutrophil count of near 0, platelet count of 2 and hemoglobin of less than 6 g/dL. Repeat blood work in the ED today essentially the same. The patient also reported having chills. No more diarrhea. He was recommended evaluation at the [facility] emergency department for supportive transfusions as well as neutropenic sepsis workup. Patient denies any shortness of breath, cough, abdominal pain, diarrhea, urinary complaints. He also complains of feeling very weak. He also noted a rash on his feet started for a couple of days. No overt bleeding. Appetite is fairly well. No nausea vomiting no diarrhea or constipation. 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 Hypertension Diabetes Severe thrombus cytopenia Anemia Periodontal disease. Chemotherapy related myelosuppression Past Surgical History Multiple bone marrow biopsies Cholecystectomy Tonsillectomy Appendectomy Reported Medications Last Impressions Chest X-Ray 12/01/17 1044 Signed Impressions: Service Date/Time: Friday, December 01, 2017 10:53 - CONCLUSION: 1. Right PICC line tip at the atriocaval junction. 2. No acute cardiopulmonary disease. Jose Marshall MD Abdomen/Pelvis CT 12/01/17 1044 Signed Impressions: Service Date/Time: Friday, December 01, 2017 11:14 - CONCLUSION: 1. Mild groundglass opacity at the bases which may represent a mild infectious infiltrate. No consolidation or effusion. 2. Previous cholecystectomy. Bilateral renal cysts. No abdominal or pelvic abscess. No obstruction, free fluid or free air. Ethan Sharp MD Allergies: Coded Allergies: No Known Allergies (Unverified Allergy, Unknown, 12/01/17) Family History Parents . Father with a history of asbestosis Mother at the age of 86 of old age Social History Retired from the [employer], he is , he lives at home alone. He has a daughter who lives nearby who is very supportive. H/o Tobacco use: 1PPD for 25 years, he quit 30 years ago. He reports occasional alcohol consumption. Physical Exam Vital Signs Vital Signs Date Time Temp Pulse Resp B/P (MAP) Pulse Ox O2 Delivery O2 Flow Rate FiO2 12/01/17 15:40 99.2 106 22 122/60 (80) 100 12/01/17 15:25 99.0 100 24 127/56 (79) 100 12/01/17 15:05 98.8 107 22 110/53 (72) 100 12/01/17 15:05 98.8 107 22 110/53 100 12/01/17 15:00 98.8 107 22 110/53 100 12/01/17 14:35 98.3 112 24 125/75 100 12/01/17 14:30 98.3 112 24 125/75 (92) 100 12/01/17 13:16 103 24 143/63 (89) 100 Room Air 12/01/17 11:16 96 Room Air 12/01/17 11:16 97 Room Air 12/01/17 11:16 96 Room Air 12/01/17 10:35 98.6 128 19 133/63 (86) 99 Physical Exam GENERAL: This is a very pleasant elderly male, chronically ill appearing, with some sob. SKIN: Petechia rash on bilateral legs up to ankles. HEAD: Atraumatic. Normocephalic. No temporal or scalp tenderness. EYES: Pupils equal round and reactive. Extraocular motions intact. No scleral icterus. No injection or drainage. ENT: Nose without bleeding, purulent drainage or septal hematoma. Throat without erythema, tonsillar hypertrophy or exudate. Uvula midline. Airway patent. NECK: Trachea midline. No JVD or lymphadenopathy. Supple, nontender, no meningeal signs. CARDIOVASCULAR: Regular rate and rhythm without murmurs, gallops, or rubs. RESPIRATORY: Bibasilar decreased breath sounds. breath sounds equal bilaterally. No wheezes, rales, or rhonchi. GASTROINTESTINAL: Abdomen soft, non-tender, nondistended. No hepato-splenomegaly , or palpable masses. No guarding. MUSCULOSKELETAL: Extremities without clubbing, cyanosis, or edema. No joint tenderness, effusion, or edema noted. No calf tenderness. Negative Homans sign bilaterally. NEUROLOGICAL: Awake and alert. Cranial nerves II through XII intact. Motor and sensory grossly within normal limits. Five out of 5 muscle strength in all muscle groups. Normal speech. Laboratory Laboratory Tests Test 12/01/17 11:00 12/01/17 15:25 White Blood Count 1.0 Red Blood Count 1.95 Hemoglobin 6.0 Hematocrit 17.2 Mean Corpuscular Volume 87.9 Mean Corpuscular Hemoglobin 30.6 Mean Corpuscular Hemoglobin Concent 34.8 Red Cell Distribution Width 17.7 Platelet Count 2 Mean Platelet Volume 12.2 CBC Comment AUTO DIFF Differential Total Cells Counted 100 Band Neutrophils % 4 Lymphocytes % 71 Monocytes % 25 Neutrophils # (Manual) 0.0 Nucleated Red Blood Cells 1 Differential Comment FINAL DIFF MANUAL Platelet Estimate RARE Platelet Morphology Comment NORMAL Prothrombin Time 11.0 Prothromb Time International Ratio 1.1 Activated Partial Thromboplast Time 17.8 Blood Urea Nitrogen 19 Creatinine 0.88 Random Glucose 155 Total Protein 6.6 Albumin 3.4 Calcium Level 8.4 Alkaline Phosphatase 153 Aspartate Amino Transf (AST/SGOT) 27 Alanine Aminotransferase (ALT/SGPT) 48 Total Bilirubin 0.5 Sodium Level 128 Potassium Level 4.4 Chloride Level 97 Carbon Dioxide Level 22.0 Anion Gap 9 Estimat Glomerular Filtration Rate 84 Lactic Acid Level 2.3 1.6 Troponin I LESS THAN 0.02 Lipase 306 Date/Time Source Procedure Growth Status 12/01/17 11:05 Blood Peripheral Aerobic Blood Culture Pending Received 12/01/17 11:05 Blood Peripheral Anaerobic Blood Culture Pending Received 12/01/17 11:07 Nasal Washing Influenza Types A,B Antigen (GUIDO) - Final NEGATIVE FOR FLU A AND B ANTIGEN.... Complete Result Diagram: 12/01/17 1100 12/01/17 1100 Imaging Last Impressions Chest X-Ray 12/01/171043 Signed Impressions: Service Date/Time: Friday, December 01, 2017 10:53 - CONCLUSION: 1. Right PICC line tip at the atriocaval junction. 2. No acute cardiopulmonary disease. Jose Marshall MD Abdomen/Pelvis CT 12/01/171043 Signed Impressions: Service Date/Time: Friday, December 01, 2017 11:14 - CONCLUSION: 1. Mild groundglass opacity at the bases which may represent a mild infectious infiltrate. No consolidation or effusion. 2. Previous cholecystectomy. Bilateral renal cysts. No abdominal or pelvic abscess. No obstruction, free fluid or free air. MD Reji Pardoi VTE Risk Assessment Caprini VTE Risk Assessment: Mod/High Risk (score >= 2) Caprini Risk Assessment Model Point Value = 1 Point Value = 2 Point Value = 3 Point Value = 5 Age 41-60 Minor surgery BMI > 25 kg/m2 Swollen legs Varicose veins or History of unexplained or recurrent spontaneous Oral contraceptives or hormone replacement Sepsis (< 1 month) Serious lung disease, including pneumonia (< 1 month) Abnormal pulmonary function Acute myocardial infarction Congestive heart failure (< 1 month) History of inflammatory bowel disease Medical patient at bed rest Age 61-74 Arthroscopic surgery Major open surgery (> 45 min) Laparoscopic surgery (> 45 min) Malignancy Confined to bed (> 72 hours) Immobilizing plaster cast Central venous access Age >= 75 History of VTE Family history of VTE Factor V Leiden Prothrombin [id number] Lupus anticoagulant Anticardiolipin antibodies Elevated serum homocysteine Heparin-induced thrombocytopenia Other congenital or acquired thrombophilia Stroke (< 1 month) Elective arthroplasty Hip, pelvis, or leg fracture Acute spinal cord injury (< 1 month) Prophylaxis Regimen Total Risk Factor Score Risk Level Prophylaxis Regimen 0-1 Low Early ambulation 2 Moderate Order ONE of the following: *Sequential Compression Device (SCD) *Heparin 5000 units SQ BID 3-4 Higher Order ONE of the following medications: *Heparin 5000 units SQ TID *Enoxaparin/Lovenox 40 mg SQ daily (WT < 150 kg, CrCl > 30 mL/min) *Enoxaparin/Lovenox 30 mg SQ daily (WT < 150 kg, CrCl > 10-29 mL/min) *Enoxaparin/Lovenox 30 mg SQ BID (WT < 150 kg, CrCl > 30 mL/min) AND/OR *Sequential Compression Device (SCD) 5 or more Highest Order ONE of the following medications: *Heparin 5000 units SQ TID (Preferred with Epidurals) *Enoxaparin/Lovenox 40 mg SQ daily (WT < 150 kg, CrCl > 30 mL/min) *Enoxaparin/Lovenox 30 mg SQ daily (WT < 150 kg, CrCl > 10-29 mL/min) *Enoxaparin/Lovenox 30 mg SQ BID (WT < 150 kg, CrCl > 30 mL/min) AND *Sequential Compression Device (SCD) Assessment and Plan Assessment and Plan 77-year-old man with a diagnosis of chronic neutrophilic leukemia, recently treated with cytarabine 1000 mg per metered squared on day 1-8 (between 2017 and 11/16/2017). The patient is folowing with Dr Mac oncology. Spoke with Dr Mac. Going into treatment his WBC count was approximately 250,000, he now has chemotherapy associated myelosuppression with an absolute neutropenia. Neutrophil count on mannual differential is 0, platelet counts less than 5000 and hemoglobin approximately 6 g/dL. Admitted to the hospital for transfusion support and close monitoring, IV abx . He is at high risk for sepsis, he did have subjective sensation of chills last night. 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 Chemo on hold at this time Chemotherapy associated myelosuppression Poss PNA per CT A/P Patient however meets sepsis criteria (Pancytopenic, tachycardic and poss PNA) on admission. However pancytopenia related to chemo and tachycardia might be due to low HGB. Consider ID consult if need. CT scan of the abdomen pelvis reviewed poss infiltrates bibasilar CXR reviewed and is clear Consult Dr Mac oncology appreciate recs Supportive transfusions Started on low-dose Neupogen x 3 days Transfuse random donor platelets today per Dr Mac. HLA match platelets will be transfused as soon as they are available. Ordered by oncology Started on antibiotics IV Blood cx U cx Sputum cx if obtainable IS O2 supplement as need Symptomatic anemia: HGB of 6 on admission. Transfuse 3 units packed red blood cells today. Monitor and transfuse per hem/onc recommendations. Tachycardia. likely related to anemai poss early sepsis ? Monitor on telemetry Subjective sensation of chills: No fevers. Monitor VS. Obtain blood and urine cultures. Empirically initiate cefepime and vancomycin IV. Patient however with poss PNA per CT A/P. Add IS. Monitor O2 sat and add O2 supplement if need to keep O2 sat > 92%. Recent history of C. difficile colitis: Continue oral Flagyl 500 mg p.o. 3 times daily which is what he was on as an outpatient. Consider switching to vancomycin PO if not improved. Patient has not had any diarrhea today. DVT ppx scd, CI chemo ppx due to pancytopenia Discussed Condition With pt, nurse, family at bedside. Dr Renee ER physician, Dr Mac oncology Sally Loya MD December 01, 2017 17:01
--- NOTE | 2017-12-01 17:14 | EKG ---
Date Performed: 12/01/2017 Time Performed: 11:08:29 PTAGE: 77 years EKG: SINUS TACHYCARDIA LOW QRS VOLTAGE IN PRECORDIAL LEADS ABNORMAL RHYTHM ECG NO PREVIOUS TRACING DOCTOR: Junito Perez Interpretating Date/Time 12/01/2017 17:12:09
[2017-12-01] MEDS: VANCOMYCIN INJ 1,250 MG in SODIUM CHLOR 0.9% 250 ML INJ 250 ML IV SCH (18:41)
[2017-12-01] MEDS: DOCUSATE SODIUM 50 MG/SENNA 8.6 MG TAB PO SCH (21:00)
[2017-12-01] MEDS: SODIUM CHLOR 0.9% 1000 ML INJ 1,000 ML IV SCH (22:38)
[2017-12-01] MEDS: SODIUM CHLORIDE 0.9% FLUSH 10 ML FLUSH IV FLUSH SCH (22:39)
[2017-12-02] VITALS (7 sets, daily range): BP systolic 111–153; BP diastolic 55–72; PULSE 98–113; RESP 16–18; TEMP 97.4–98.6; O2SAT 96–100
[2017-12-02] MEDS: VANCOMYCIN INJ 1,250 MG in SODIUM CHLOR 0.9% 250 ML INJ 250 ML IV SCH ×2 (02:59→14:04)
[2017-12-02] MEDS: ACETAMINOPHEN 325 MG TAB PO PRN ×2 (04:38→17:31)
[2017-12-02] MEDS: metroNIDAZOLE 500 MG TAB PO SCH ×2 (04:38→13:07)
[2017-12-02] MEDS: CEFEPIME INJ 2,000 MG in SODIUM CHLORIDE 0.9% INJ 100 ML IV SCH ×2 (04:39→13:07)
[2017-12-02 05:09] LABS: MEAN CELL VOLUME 85.7 FL (80.0-100.0); MEAN CORPUSCULAR HEMOGLOBIN 30.1 PG (27.0-34.0); MEAN CORPUSCULAR HGB CONC 35.1 % (32.0-36.0); PLATELET COUNT 34 TH/MM3 (150-450); RED BLOOD COUNT 2.14 MIL/MM3 (4.50-5.90); RED CELL DISTRIBUTION WIDTH 17.4 % (11.6-17.2); WHITE BLOOD COUNT 0.8 TH/MM3 (4.0-11.0)
[2017-12-02 05:19] LABS: HEMATOCRIT 18.4 % (39.0-51.0); HEMOGLOBIN 6.4 GM/DL (13.0-17.0)
[2017-12-02 05:31] LABS: BICARBONATE 20.3 MEQ/L (21.0-32.0); CALCIUM 7.9 MG/DL (8.5-10.1); CREATININE 0.81 MG/DL (0.60-1.30)
[2017-12-02] MEDS ORDERED: FUROSEMIDE 20 MG/2 ML VIAL IV PUSH SCH (05:45)
[2017-12-02] MEDS ORDERED: SODIUM CHLOR 0.9% 250 ML INJ 250 ML IV ONE (05:45)
[2017-12-02 07:14] LABS: DOHLE BODIES PRESENT (NONE SEEN); LYMPHOCYTES 72 % (9-44); MONOCYTES 20 % (0-8); NEUTROPHIL # MANUAL DIFF 0.1 TH/MM3 (1.8-7.7); POLYS (SEG NEUTROPHILS) 8 % (16-70)
--- NOTE | 2017-12-02 07:55 | PD.ONC.PN ---
Subjective Subjective Remarks Patient seen and examined, vital signs, labs, medications and overnight events reviewed. Patient is currently on his third unit packed red blood cell transfusion. He did receive platelet transfusions overnight as well. This morning platelet count had improved from 2000-34,000. Hemoglobin had improved from 6 g/dL to 6.4 g/dL. WBC count remains low at 0.8. Vital signs reviewed, patient has been afebrile since admission. He denies sensation of chills. He also denies having had diarrhea. Blood cultures and urine cultures were reviewed, no evidence of growth. Objective Data Date Time Temp Pulse Resp B/P (MAP) Pulse Ox O2 Delivery O2 Flow Rate FiO2 12/02/17 06:09 97.7 99 18 118/56 99 12/02/17 00:25 98.6 113 18 113/55 (74) 96 12/01/17 20:05 99 21 12/01/17 20:00 98.9 108 16 126/58 (80) 96 12/01/17 18:45 99.1 112 23 122/58 99 12/01/17 18:27 98.8 113 23 117/55 100 12/01/17 18:00 98.8 113 20 117/55 (75) 100 12/01/17 16:05 98.5 107 24 116/58 (77) 100 12/01/17 15:55 99.6 107 24 122/59 (80) 100 12/01/17 15:55 99.6 107 24 122/59 (80) 100 12/01/17 15:40 99.2 106 22 122/60 (80) 100 12/01/17 15:25 99.0 100 24 127/56 (79) 100 12/01/17 15:05 98.8 107 22 110/53 (72) 100 12/01/17 15:05 98.8 107 22 110/53 100 12/01/17 15:00 98.8 107 22 110/53 100 12/01/17 14:35 98.3 112 24 125/75 100 12/01/17 14:30 98.3 112 24 125/75 (92) 100 12/01/17 13:16 103 24 143/63 (89) 100 Room Air 12/01/17 11:16 96 Room Air 12/01/17 11:16 97 Room Air 12/01/17 11:16 96 Room Air 12/01/17 10:35 98.6 128 19 133/63 (86) 99 12/02/17 12/02/17 12/02/17 07:00 15:00 23:00 Intake Total 1294.5 ml Output Total 2250 ml Balance -955.5 ml Result Diagram: 12/02/17 0445 12/02/17 0445 Laboratory Results Laboratory Tests Test 12/01/17 11:00 12/01/17 15:25 12/02/17 04:45 White Blood Count 1.0 TH/MM3 0.8 TH/MM3 Red Blood Count 1.95 MIL/MM3 2.14 MIL/MM3 Hemoglobin 6.0 GM/DL 6.4 GM/DL Hematocrit 17.2 % 18.4 % Mean Corpuscular Volume 87.9 FL 85.7 FL Mean Corpuscular Hemoglobin 30.6 PG 30.1 PG Mean Corpuscular Hemoglobin Concent 34.8 % 35.1 % Red Cell Distribution Width 17.7 % 17.4 % Platelet Count 2 TH/MM3 34 TH/MM3 Mean Platelet Volume 12.2 FL 7.0 FL CBC Comment AUTO DIFF AUTO DIFF Differential Total Cells Counted 100 50 Band Neutrophils % 4 % Lymphocytes % 71 % 72 % Monocytes % 25 % 20 % Neutrophils # (Manual) 0.0 TH/MM3 0.1 TH/MM3 Nucleated Red Blood Cells 1 /100 WBC Differential Comment FINAL DIFF MANUAL FINAL DIFF MANUAL Platelet Estimate RARE LOW Platelet Morphology Comment NORMAL NORMAL Prothrombin Time 11.0 SEC Prothromb Time International Ratio 1.1 RATIO Activated Partial Thromboplast Time 17.8 SEC Blood Urea Nitrogen 19 MG/DL 15 MG/DL Creatinine 0.88 MG/DL 0.81 MG/DL Random Glucose 155 MG/DL 177 MG/DL Total Protein 6.6 GM/DL Albumin 3.4 GM/DL Calcium Level 8.4 MG/DL 7.9 MG/DL Alkaline Phosphatase 153 U/L Aspartate Amino Transf (AST/SGOT) 27 U/L Alanine Aminotransferase (ALT/SGPT) 48 U/L Total Bilirubin 0.5 MG/DL Sodium Level 128 MEQ/L 131 MEQ/L Potassium Level 4.4 MEQ/L 4.0 MEQ/L Chloride Level 97 MEQ/L 101 MEQ/L Carbon Dioxide Level 22.0 MEQ/L 20.3 MEQ/L Anion Gap 9 MEQ/L 10 MEQ/L Estimat Glomerular Filtration Rate 84 ML/MIN 92 ML/MIN Lactic Acid Level 2.3 mmol/L 1.6 mmol/L Troponin I LESS THAN 0.02 NG/ML Lipase 306 U/L Neutrophils % (Manual) 8 % Dohle Bodies PRESENT Culture Results Microbiology Date/Time Source Procedure Growth Status 12/01/17 11:05 Blood Peripheral Aerobic Blood Culture Pending Received 12/01/17 11:05 Blood Peripheral Anaerobic Blood Culture Pending Received 12/01/17 11:00 Blood Peripheral Aerobic Blood Culture Pending Received 12/01/17 11:00 Blood Peripheral Anaerobic Blood Culture Pending Received 12/01/17 11:07 Nasal Washing Influenza Types A,B Antigen (GUIDO) - Final NEGATIVE FOR FLU A AND B ANTIGEN.... Complete Imaging Studies Last 24 hours Impressions Chest X-Ray 12/01/171043 Signed Impressions: Service Date/Time: Friday, December 01, 2017 10:53 - CONCLUSION: 1. Right PICC line tip at the atriocaval junction. 2. No acute cardiopulmonary disease. Jose Marshall MD Abdomen/Pelvis CT 12/01/171043 Signed Impressions: Service Date/Time: Friday, December 01, 2017 11:14 - CONCLUSION: 1. Mild groundglass opacity at the bases which may represent a mild infectious infiltrate. No consolidation or effusion. 2. Previous cholecystectomy. Bilateral renal cysts. No abdominal or pelvic abscess. No obstruction, free fluid or free air. Ethan Sharp MD Administered Medications Medications (Trade) Dose Ordered Sig/Sierra Route PRN Reason Start Time Stop Time Status Last Admin Dose Admin Sodium Chloride 1,000 ml @ 100 mls/hr Q10H IV 12/01/17 12:08 12/01/17 22:38 Sodium Chloride (NS Flush) 2 ml BID IV FLUSH 12/01/17 21:00 12/01/17 22:39 Acetaminophen (Tylenol) 650 mg Q4H PRN PO TEMP > 100.4 12/01/17 12:15 12/02/17 04:38 Cefepime HCl 2000 mg/Sodium Chloride 100 ml @ 200 mls/hr Q8H IV 12/01/17 14:00 12/02/17 04:39 Vancomycin HCl 1250 mg/Sodium Chloride 262.5 ml @ 262.5 mls/ hr Q12H IV 12/01/17 15:00 12/02/17 02:59 Metronidazole (Flagyl) 500 mg Q8HR PO 12/01/17 14:00 12/02/17 04:38 Sodium Chloride 250 ml @ 15 mls/hr ONCE ONCE IV 12/02/17 05:45 12/02/17 22:24 12/02/17 05:45 Objective Remarks GENERAL: Elderly male, sitting up in the gurney, appears to be no acute distress. He is wearing a mask. He does appear pale. SKIN: No rashes, mild bruising noted, extensive petechiae on the extensor surface of the hands and feet. HEAD: Atraumatic. Normocephalic. No temporal or scalp tenderness. EYES: Pupils equal round and reactive. Extraocular motions intact. No scleral icterus. No injection or drainage. Conjunctivae are pale. ENT: Nose without bleeding, purulent drainage or septal hematoma. Throat without erythema, tonsillar hypertrophy or exudate. Uvula midline. Airway patent. Minute petechiae on the soft palate. No active bleeding NECK: Trachea midline. No JVD or lymphadenopathy. Supple, nontender, no meningeal signs. CARDIOVASCULAR: Tachycardic, appears irregular. RESPIRATORY: Clear to auscultation. Breath sounds equal bilaterally. No wheezes , rales, or rhonchi. GASTROINTESTINAL: Abdomen soft, non-tender, nondistended. No hepato-splenomegaly , or palpable masses. No guarding. MUSCULOSKELETAL: Extremities without clubbing, cyanosis, or edema. No joint tenderness, effusion, or edema noted. No calf tenderness. Negative Homans sign bilaterally. NEUROLOGICAL: Awake and alert. Cranial nerves II through XII intact. Motor and sensory grossly within normal limits. Five out of 5 muscle strength in all muscle groups. Normal speech. Extremities: He has a PICC line in the right arm. There appears to be no induration bleeding or tenderness. 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 Going into treatment his WBC count was approximately 250, 000, he now has chemotherapy associated myelosuppression with an absolute neutropenia. Neutrophil count on mannual differential is 0, platelet counts less than 5000 and hemoglobin approximately 6 g/dL. He presents to the hospital for transfusion support and close monitoring. He is at high risk for sepsis, he did have subjective sensation of chills last night. Plan 1. Chronic neutrophilic leukemia: Further treatment is on hold until his counts recover. I am hopeful he will recover his counts, the profound nature of his current samuel is more than what I had expected with the decreased dose of cytarabine. Initiate supportive transfusions. I will also initiate low- dose Neupogen and treat him at least for the next 3 days. 2. Cytopenias: Status post red cell and platelet transfusions. His platelet counts have responded appropriately, hemoglobin improved marginally but I suspect there are additional factors in play including dilution due to IV fluids. Repeat CBC has been ordered for 1 PM today. 3. Subjective sensation of chills: Obtain blood and urine cultures. Empirically initiate cefepime and vancomycin today. Continue antibiotics, cultures reviewed, no growth to date. 4. Recent history of C. difficile colitis: I will continue oral Flagyl 500 mg p.o. 3 times daily which is what he was on as an outpatient. He has not had diarrhea overnight, continue Flagyl. Continue ongoing care. If his hemoglobin and hematocrit responded and platelet counts remain stable. Provide patient remains afebrile. He should be ready for discharge in the next 24 hours. He does not need to remain inpatient to wait count recovery. Timoteo Mac MD December 02, 2017 07:55
[2017-12-02] MEDS: SODIUM CHLOR 0.9% 1000 ML INJ 1,000 ML IV SCH (08:08)
[2017-12-02] MEDS: SODIUM CHLORIDE 0.9% FLUSH 10 ML FLUSH IV FLUSH SCH (08:34)
[2017-12-02] MEDS: DOCUSATE SODIUM 50 MG/SENNA 8.6 MG TAB PO SCH (08:34)
[2017-12-02] MEDS ORDERED: FILGRASTIM 480 MCG/1.6 ML VIAL SQ ONE (09:30)
--- NOTE | 2017-12-02 12:28 | HHI.PR ---
Subjective Remarks no complains feels stronger denies any nausea or vomiting or melena states good po appetite up and ambualted earlier per patient- will sit on the chair later Objective Vitals Vital Signs Date Time Temp Pulse Resp B/P (MAP) Pulse Ox O2 Delivery O2 Flow Rate FiO2 12/02/17 10:50 97.5 100 16 133/61 99 12/02/17 10:39 97.6 98 16 122/59 99 12/02/17 08:00 97.9 100 18 111/62 (78) 98 12/02/17 06:09 97.7 99 18 118/56 99 12/02/17 00:25 98.6 113 18 113/55 (74) 96 12/01/17 20:05 99 21 12/01/17 20:00 98.9 108 16 126/58 (80) 96 12/01/17 18:45 99.1 112 23 122/58 99 12/01/17 18:27 98.8 113 23 117/55 100 12/01/17 18:00 98.8 113 20 117/55 (75) 100 12/01/17 16:05 98.5 107 24 116/58 (77) 100 12/01/17 15:55 99.6 107 24 122/59 (80) 100 12/01/17 15:55 99.6 107 24 122/59 (80) 100 12/01/17 15:40 99.2 106 22 122/60 (80) 100 12/01/17 15:25 99.0 100 24 127/56 (79) 100 12/01/17 15:05 98.8 107 22 110/53 (72) 100 12/01/17 15:05 98.8 107 22 110/53 100 12/01/17 15:00 98.8 107 22 110/53 100 12/01/17 14:35 98.3 112 24 125/75 100 12/01/17 14:30 98.3 112 24 125/75 (92) 100 12/01/17 13:16 103 24 143/63 (89) 100 Room Air I/O 12/01/17 12/01/17 12/01/17 12/02/17 12/02/17 12/02/17 07:00 15:00 23:00 07:00 15:00 23:00 Intake Total 300 ml 806 ml 1294.5 ml 420 ml Output Total 275 ml 2250 ml Balance 300 ml 531 ml -955.5 ml 420 ml Intake Oral 580 ml IV Total 100 ml 462.5 ml Packed Cells 400 ml 400 ml Platelets 286 ml 252 ml Blood Product IV Normal Saline Flush 300 ml 20 ml 20 ml Output Urine Total 275 ml 2250 ml # Bowel Movements 0 Result Diagram: 12/02/175 12/02/17444 Imaging Last Impressions Chest X-Ray 12/01/171043 Signed Impressions: Service Date/Time: Friday, December 01, 2017 10:53 - CONCLUSION: 1. Right PICC line tip at the atriocaval junction. 2. No acute cardiopulmonary disease. Jose Marshall MD Abdomen/Pelvis CT 12/01/171043 Signed Impressions: Service Date/Time: Friday, December 01, 2017 11:14 - CONCLUSION: 1. Mild groundglass opacity at the bases which may represent a mild infectious infiltrate. No consolidation or effusion. 2. Previous cholecystectomy. Bilateral renal cysts. No abdominal or pelvic abscess. No obstruction, free fluid or free air. 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 The patient is folowing with Dr Mac oncology. Spoke with Dr Mac. Going into treatment his WBC count was approximately 250,000, he now has chemotherapy associated myelosuppression with an absolute neutropenia. Neutrophil count on mannual differential is 0, platelet counts less than 5000 and hemoglobin approximately 6 g/dL. Admitted to the hospital for transfusion support and close monitoring, IV abx . He is at high risk for sepsis, he did have subjective sensation of chills last night. 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 Chemo on hold at this time Chemotherapy associated myelosuppression Poss PNA per CT A/P Patient however meets sepsis criteria (Pancytopenic, tachycardic and poss PNA) on admission. However pancytopenia related to chemo and tachycardia might be due to low HGB. Consider ID consult if need. CT scan of the abdomen pelvis reviewed poss infiltrates bibasilar CXR reviewed and is clear Consult Dr Mac oncology appreciate recs Supportive transfusions on low-dose Neupogen x 3 days Transfuse random donor platelets per Dr Mac. HLA match platelets will be transfused as soon as they are available. Ff closely along with us. Repeat CBC this pm Started on antibiotics IV Blood cx- so far negative U cx Sputum cx if obtainable IS O2 supplement as need Symptomatic anemia: HGB of 6 on admission. Transfuse 3 units packed red blood cells today. Monitor and transfuse per hem/onc recommendations. Tachycardia. HR imrpoved. likely related to anemai poss early sepsis ? Monitor on telemetry Subjective sensation of chills: No fevers. Monitor VS. Obtain blood and urine cultures. Empirically initiate cefepime and vancomycin IV. Patient however with poss PNA per CT A/P. Add IS. Monitor O2 sat and add O2 supplement if need to keep O2 sat > 92%. Recent history of C. difficile colitis: Continue oral Flagyl 500 mg p.o. 3 times daily which is what he was on as an outpatient. no diarrhea reported- for past 2 days continue to- [facility] -. Patient has not had any diarrhea today. DVT ppx scd, CI chemo ppx due to pancytopenia DC home today diet as tolerated d/w patient and family- return to [facility] develops fever/chills OP ff up with Dr. Mac contineu home meds continue Flagyl 500 mg po q 8 x 7 days Anaid Martinez MD December 02, 2017 12:28
[2017-12-02 15:16] LABS: HEMATOCRIT 25.9 % (39.0-51.0); HEMOGLOBIN 8.9 GM/DL (13.0-17.0); MEAN CELL VOLUME 85.6 FL (80.0-100.0); MEAN CORPUSCULAR HEMOGLOBIN 29.3 PG (27.0-34.0); MEAN CORPUSCULAR HGB CONC 34.2 % (32.0-36.0); MEAN PLATELET VOLUME 7.5 FL (7.0-11.0); PLATELET COUNT 27 TH/MM3 (150-450); RED BLOOD COUNT 3.03 MIL/MM3 (4.50-5.90); RED CELL DISTRIBUTION WIDTH 16.9 % (11.6-17.2); WHITE BLOOD COUNT 0.8 TH/MM3 (4.0-11.0)
[2017-12-02 16:22] LABS: BANDS 2 % (0-6); DOHLE BODIES PRESENT (NONE SEEN); LYMPHOCYTES 67 % (9-44); MONOCYTES 20 % (0-8); POLYS (SEG NEUTROPHILS) 11 % (16-70)
[2017-12-02 16:25] LABS: NEUTROPHIL # MANUAL DIFF 0.1 TH/MM3 (1.8-7.7)
[2017-12-02] MEDS ORDERED: METR-1 PO (17:11)
== END 2017-12-02 17:58 | disposition home or self-care (01) | DRG 809 ==
LOC: NEPC 10:20 → NEDA 12:13 → NEDH 13:59 → N07B 17:32 → OBSVTOIN 12-02 10:28
PROVIDERS: ADMIT Internal Medicine; ATTEND Internal Medicine
PROC: 30233R1 Transfusion of Nonautologous Platelets into Peripheral Vein, Percutaneous Approach (ICD-10-PCS; principal; 2017-12-01)
PROC: 30233N1 Transfusion of Nonautologous Red Blood Cells into Peripheral Vein, Percutaneous Approach (ICD-10-PCS; 2017-12-01)
DX: D61.810 Antineoplastic chemotherapy induced pancytopenia (principal); D47.1 Chronic myeloproliferative disease; A04.72 Enterocolitis due to Clostridium difficile, not specified as recurrent; R64 Cachexia; E87.1 Hypo-osmolality and hyponatremia; E11.9 Type 2 diabetes mellitus without complications; I10 Essential (primary) hypertension; F41.9 Anxiety disorder, unspecified; R21 Rash and other nonspecific skin eruption; K05.6 Periodontal disease, unspecified; T45.1X5A Adverse effect of antineoplastic and immunosuppressive drugs, initial encounter; Z68.25 Body mass index [BMI] 25.0-25.9, adult; Z87.891 Personal history of nicotine dependence
CPT/HCPCS: 36430; 71045; 74176; 80048; 80053; 83605; 83690; 84484; 85007; 85025; 85027; 85610; 85730; 86850; 86900; 86901; 86920; 87040; 87804; 93005; 94150; G8987-GP; G8988-GP; J0692; J1442; J1940; J3370; J7030; J7050; P9016; P9035

== ENCOUNTER 2018-01-19 15:50 | Inpatient (IN) | payer MEDICARE, OTHER ==
[~2018-01-19] VITALS: Ht 170.2 cm; Wt 75.0 kg
[~2018-01-19 15:50] MED LIST changes: -BENA25TA8 PO; +LISI-515 PO; -LISI40TA PO; -METF-324 PO; +METF500T4 PO; +ROSU1TAB4 PO; -SITA100 PO; +SITA1TAB2 PO; -TAB-TAB PO; +TAMS0.4C4 PO; -TAMS0.4C67 PO; +TASI150C PO
[2018-01-19 16:22] VITALS: BP 185/86; PULSE 115; RESP 19; TEMP 97.6; O2SAT 99
--- NOTE | 2018-01-19 16:41 | PD ---
HPI Chief Complaint: Headache Time Seen by Provider: 16:23 Travel History International Travel<30 days: No Contact w/Intl Traveler<30days: No Traveled to known affect area: No History of Present Illness HPI 77-year-old male presents to the emergency department for evaluation of headache that started this morning around 7 AM and has worsened throughout the day. Patient reports associated dizziness and blurred vision. He states the dizziness is only upon standing, but headache is constant. He states is generalized throughout the head, 10/10, throbbing and aching. Patient denies any syncope. He reports associated generalized weakness. Patient denies any falls. He denies any chest pain or shortness of breath. No abdominal pain. No nausea, vomiting, diarrhea. Patient has chronic neutrophilic leukemia, oncologist is Dr. Mac. He is undergoing chemotherapy, last time was 3 weeks ago. Patient denies history of headaches he has history of hypertension, diabetes, anemia. Moderate severity. PFSH Past Medical History Anxiety: Yes Depression: No Cancer: Yes (CNL) Cardiovascular Problems: Yes Chemotherapy: Yes (BY MOUTH HAS HAD IV WELL) Diabetes: Yes (TYPE 2) Endocrine: Yes Gastrointestinal Disorders: No Genitourinary: No Hepatitis: No Hiatal Hernia: No Hypertension: Yes Immune Disorder: No Implanted Vascular Access Dvce: No Musculoskeletal: No Neurologic: No Psychiatric: No Reproductive: No Respiratory: Yes (ALLERGIES CAUSE BREATHING TROUBLE) Thyroid Disease: No Past Surgical History Abdominal Surgery: Yes (CHOLECYSTECTOMY, APPENDIX) Other Surgery: Yes Social History Alcohol Use: Yes (occ) Tobacco Use: No Substance Use: No Allergies-Medications (Allergen,Severity, Reaction): Coded Allergies: No Known Allergies (Unverified Allergy, Unknown, 12/01/17) Reported Meds & Prescriptions Reported Meds & Active Scripts Active Flagyl (Metronidazole) 500 Mg Tab 500 Mg PO Q8HR 7 Days Zyloprim (Allopurinol) 300 Mg Tab 300 Mg PO BID Reported Rosuvastatin (Rosuvastatin Calcium) 5 Mg Tab 5 Mg PO HS Lisinopril 20 Mg Tab 20 Mg PO DAILY Klonopin (Clonazepam) 1 Mg Tab 0.5-1 Mg PO HS Metformin ER (Metformin HCl) 500 Mg Kerri 500 Mg PO Q12HR Tasigna (Nilotinib) 150 Mg Cap 150 Mg PO Q12H Take on empty stomach Januvia (Sitagliptin Phosphate) 100 Mg Tab 100 Mg PO DAILY Tamsulosin (Tamsulosin HCl) 0.4 Mg Cap 0.4 Mg PO HS Review of Systems Except as stated in HPI: all other systems reviewed are Neg Physical Exam Narrative GENERAL: Well-nourished, well-developed elderly male patient, afebrile. Patient appears uncomfortable and in pain. SKIN: Focused skin assessment warm/dry. HEAD: Normocephalic. Atraumatic EYES: No scleral icterus. No injection or drainage. NECK: Supple, trachea midline. No JVD or lymphadenopathy. CARDIOVASCULAR: Regular rate and rhythm without murmurs, gallops, or rubs. Bilateral radial and pedal pulses are 2+. RESPIRATORY: Breath sounds equal bilaterally. No accessory muscle use. Lung sounds are clear to auscultation. GASTROINTESTINAL: Abdomen soft, non-tender, nondistended. MUSCULOSKELETAL: No cyanosis, or edema. Bilateral upper and lower extremity strength 5/5. All extremities are neurovascularly intact. BACK: Nontender without obvious deformity. No CVA tenderness. NEUROLOGICAL: Awake and alert. Cranial nerves II through XII intact. Motor and sensory grossly within normal limits. Five out of 5 muscle strength in all muscle groups. Normal speech. Finger to nose is normal bilaterally. Data Data Last Documented VS Vital Signs Date Time Temp Pulse Resp B/P (MAP) Pulse Ox O2 Delivery O2 Flow Rate FiO2 01/19/18 16:22 97.6 115 19 185/86 (119) 99 Room Air Orders Orders Electrocardiogram (01/19/18 16:33) Complete Blood Count With Diff (01/19/18 16:33) Comprehensive Metabolic Panel (01/19/18 16:33) Magnesium (Mg) (01/19/18 16:33) Ckmb (Isoenzyme) Profile (01/19/18 16:33) Troponin I (01/19/18 16:33) Act Partial Throm Time (Ptt) (01/19/18 16:33) Prothrombin Time / Inr (Pt) (01/19/18 16:33) Urinalysis - C+S If Indicated (01/19/18 16:33) Ct Brain W/O Iv Contrast(Rout) (01/19/18 16:33) Ecg Monitoring (01/19/18 16:33) Iv Access Insert/Monitor (01/19/18 16:33) Oximetry (01/19/18 16:33) Sodium Chloride 0.9% Flush (Ns Flush) (01/19/18 16:45) Sodium Chlorid 0.9% 500 Ml Inj (Ns 500 M (01/19/18 16:45) Morphine Inj (Morphine Inj) (01/19/18 16:45) Metoclopramide Inj (Reglan Inj) (01/19/18 16:45) MDM Medical Decision Making Medical Screen Exam Complete: Yes Emergency Medical Condition: Yes Medical Record Reviewed: Yes Differential Diagnosis Intracranial hemorrhage versus mass versus CVA versus migraine headache versus electrolyte abnormality Narrative Course 77-year-old male presents to the emergency department for evaluation of headache that started at 7 AM is been worsening throughout the day. Patient denies history of headaches. He appears uncomfortable and in pain on exam. He reports associated generalized weakness and dizziness with blurred vision. EKG , CBC, CMP, magnesium, CK, troponin, PTT, PT/INR, UA are ordered and pending. CT the brain is ordered and pending. Patient is given normal saline 500 male bolus, morphine 4 mg IV, Reglan 10 mg IV. Patient is initially seen in the ambulance hallway. He is transferred to [facility] for further evaluation and disposition. Uma Hall Jan 19, 2018 16:41
[2018-01-19] MEDS ORDERED: METOCLOPRAMIDE HCL 10 MG/2 ML VIAL IV PUSH ONE (16:45)
[2018-01-19] MEDS ORDERED: MORPHINE SULFATE 4 MG/ML INJ IV PUSH ONE ×2 (16:45→19:00)
[2018-01-19] MEDS ORDERED: SODIUM CHLORIDE 0.9% FLUSH 10 ML FLUSH IVF PRN (16:45)
[2018-01-19] MEDS ORDERED: SODIUM CHLORID 0.9% 500 ML INJ 500 ML IV ONE ×2 (16:45→19:45)
--- NOTE | 2018-01-19 17:15 | RADRPT ---
EXAM DATE: 01/19/2018 5:04 PM EDT AGE/SEX: 77 years / Male INDICATIONS: Sudden onset of headache with dizziness and blurred vision. CLINICAL DATA: This is the patient's initial encounter. Patient reports that signs and symptoms have been present for 1 day and indicates a pain score of 10/10. MEDICAL/SURGICAL HISTORY: Hypertension. Diabetes. Leukemia. None. RADIATION DOSE: 36.94 CTDI (mGy) COMPARISON: No prior exams available for comparison. TECHNIQUE: CT of the head without contrast. Using automated exposure control and adjustment of the mA and/or kV according to patient size, radiation dose was kept as low as reasonably achievable to ob tain optimal diagnostic quality images. DICOM format image data is available electronically for revi ew and comparison. FINDINGS: Cerebrum: The ventricles are normal for age. No evidence of midline shift, mass lesion, hemorrhage or acute infarction. No extraaxial fluid collections are seen. Posterior Fossa: The cerebellum and brainstem are intact. The 4th ventricle is midline. The cerebe llopontine angle is unremarkable. Extracranial: The visualized portion of the orbits is intact. Skull: The calvaria is intact. No evidence of skull fracture. CONCLUSION: Negative CT Head non contrast. Electronically signed by: Alonso Arias MD 01/19/2018 5:14 PM EDT
--- NOTE | 2018-01-19 17:19 | PD ---
Physical Exam Date Seen by Provider: Jan 19, 2018 Time Seen by Provider: 17:17 Narrative 77-year-old male the presents to the ED for evaluation of severe Headache. Patient was originally seen by Uma SMITH. I was asked to disposition patient pending labs and imaging. Please refer to her note. On my physical exam patient has no neurological deficits. Patient does complain of severe headache. No history of this in the past. 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 Follows with Dr. Mac for oncology. Data Data Last Documented VS Vital Signs Date Time Temp Pulse Resp B/P (MAP) Pulse Ox O2 Delivery O2 Flow Rate FiO2 01/19/18 19:00 102 16 179/91 (120) 94 Room Air 01/19/18 16:22 97.6 Orders Orders Electrocardiogram (01/19/18 16:33) Complete Blood Count With Diff (01/19/18 16:33) Comprehensive Metabolic Panel (01/19/18 16:33) Magnesium (Mg) (01/19/18 16:33) Ckmb (Isoenzyme) Profile (01/19/18 16:33) Troponin I (01/19/18 16:33) Act Partial Throm Time (Ptt) (01/19/18 16:33) Prothrombin Time / Inr (Pt) (01/19/18 16:33) Urinalysis - C+S If Indicated (01/19/18 16:33) Ct Brain W/O Iv Contrast(Rout) (01/19/18 16:33) Ecg Monitoring (01/19/18 16:33) Iv Access Insert/Monitor (01/19/18 16:33) Oximetry (01/19/18 16:33) Sodium Chloride 0.9% Flush (Ns Flush) (01/19/18 16:45) Sodium Chlorid 0.9% 500 Ml Inj (Ns 500 M (01/19/18 16:45) Morphine Inj (Morphine Inj) (01/19/18 16:45) Metoclopramide Inj (Reglan Inj) (01/19/18 16:45) Cta Brain W Iv Contrast W 3d (01/19/18 18:21) Cta Neck W Iv Contrast W 3d (01/19/18 18:21) Morphine Inj (Morphine Inj) (01/19/18 19:00) Morphine Inj (Morphine Inj) (01/19/18 19:00) Morphine Inj (Morphine Inj) (01/19/18 18:52) Prochlorperazine Inj (Compazine Inj) (01/19/18 19:45) Sodium Chlorid 0.9% 500 Ml Inj (Ns 500 M (01/19/18 19:45) Hydromorphone Pf Inj (Dilaudid Pf Inj) (01/19/18 19:45) Iohexol 350 Inj (Omnipaque 350 Inj) (01/19/18 19:40) Admit Order (Ed Use Only) (01/19/18 20:49) Labs Laboratory Tests Test 01/19/18 17:30 01/19/18 19:00 White Blood Count 40.6 TH/MM3 Red Blood Count 3.56 MIL/MM3 Hemoglobin 10.8 GM/DL Hematocrit 33.8 % Mean Corpuscular Volume 95.0 FL Mean Corpuscular Hemoglobin 30.3 PG Mean Corpuscular Hemoglobin Concent 31.9 % Red Cell Distribution Width 23.2 % Platelet Count 81 TH/MM3 Mean Platelet Volume 11.5 FL Neutrophils (%) (Auto) 80.2 % Lymphocytes (%) (Auto) 4.2 % Monocytes (%) (Auto) 14.6 % Eosinophils (%) (Auto) 0.5 % Basophils (%) (Auto) 0.5 % Neutrophils # (Auto) 32.5 TH/MM3 Lymphocytes # (Auto) 1.7 TH/MM3 Monocytes # (Auto) 5.9 TH/MM3 Eosinophils # (Auto) 0.2 TH/MM3 Basophils # (Auto) 0.2 TH/MM3 CBC Comment AUTO DIFF Differential Total Cells Counted 100 Neutrophils % (Manual) 70 % Band Neutrophils % 8 % Lymphocytes % 4 % Monocytes % 16 % Neutrophils # (Manual) 32.5 TH/MM3 Metamyelocytes 2 % Nucleated Red Blood Cells 1 /100 WBC Differential Comment FINAL DIFF MANUAL Dohle Bodies PRESENT Platelet Estimate LOW Platelet Morphology Comment ENLARGED Ovalocytes 1+ Prothrombin Time 11.6 SEC Prothromb Time International Ratio 1.1 RATIO Activated Partial Thromboplast Time 27.9 SEC Blood Urea Nitrogen 12 MG/DL Creatinine 0.96 MG/DL Random Glucose 221 MG/DL Total Protein 7.7 GM/DL Albumin 3.5 GM/DL Calcium Level 8.9 MG/DL Magnesium Level 2.1 MG/DL Alkaline Phosphatase 228 U/L Aspartate Amino Transf (AST/SGOT) 18 U/L Alanine Aminotransferase (ALT/SGPT) 27 U/L Total Bilirubin 1.0 MG/DL Sodium Level 130 MEQ/L Potassium Level 4.4 MEQ/L Chloride Level 97 MEQ/L Carbon Dioxide Level 24.1 MEQ/L Anion Gap 9 MEQ/L Estimat Glomerular Filtration Rate 76 ML/MIN Total Creatine Kinase 19 U/L Troponin I LESS THAN 0.02 NG/ML Urine Color Straw Urine Turbidity CLEAR Urine pH 6.0 Urine Specific [place] 1.006 Urine Protein NEG mg/dL Urine Glucose (UA) 50 mg/dL Urine Ketones NEG mg/dL Urine Occult Blood SMALL Urine Nitrite NEG Urine Bilirubin NEG Urine Urobilinogen LESS THAN 2 mg/dL Urine Leukocyte Esterase NEG Urine WBC 1 /hpf Urine Squamous Epithelial Cells <1 /hpf Microscopic Urinalysis Comment CULT NOT INDICATED MDM Medical Record Reviewed: Yes Supervised Visit with MALIKA: No Interpretation(s) Last Impressions Head CT 01/19/181632 Signed Impressions: CONCLUSION: Negative CT Head non contrast. CBC & BMP Diagram 01/19/18 17:30 Total Protein 7.7, Albumin 3.5, Calcium Level 8.9, Magnesium Level 2.1, Alkaline Phosphatase 228 H, Aspartate Amino Transf (AST/SGOT) 18, Alanine Aminotransferase (ALT/SGPT) 27, Total Bilirubin 1.0 EKG shows sinus tachycardia but no sign of acute ischemia or arrhythmia noted by me and attending. Troponin and CK-MB negative. Last Impressions Neck CTA 01/19/181820 Signed Impressions: CONCLUSION: 1. Right carotid: Mild calcified after plaquing. No hemodynamically significan t stenosis. 2. Left carotid: Moderate atherosclerotic plaquing which is predominantly soft plaque resulting in approximately 40-50% stenosis in the origin of the left in ternal carotid. Head CTA 01/19/181820 Signed Impressions: CONCLUSION: 1. Negative CTA Head. Head CT 01/19/181632 Signed Impressions: CONCLUSION: Negative CT Head non contrast. Differential Diagnosis Severe headache versus dehydration versus dizziness versus medication side effect versus ICH versus sepsis versus coagulopathy versus migraine headache Narrative Course 77-year-old male the presents to the ED for evaluation of severe headache. Patient was properly examined and was found to have signs and symptoms consistent with appears to be severe headache. Please refer to the previous provider note. I was asked to disposition patient pending plans on labs. Patient was given IV morphine and Reglan as well as fluids per previous provider. Labs and imaging here showed no sign of acute disease alert and elevated white blood cell count as well as low platelets. Patient still a lot of pain. Patient was given another dose of morphine. Still no improvement. Patient was given Dilaudid as well as Compazine. Feels improved but not completely and still has significant discomfort. Case was discussed with my attending Dr. Orta who recommends admission a CT with contrast are negative for aneurysm. CTs of the aneurysms were negative. At this time recommendations for admission for further evaluation. Patient and family agree with this. Case discussed with Dr. Nelson who agrees to admission. 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
[2018-01-19] MEDS ORDERED: PROS5TAB PO (17:27)
[2018-01-19] MEDS ORDERED: RAPA8CAP PO (17:27)
[2018-01-19] MEDS ORDERED: BENA25TA6 PO (17:28)
[2018-01-19] MEDS ORDERED: IBUP200T47 PO (17:28)
[2018-01-19 17:51] VITALS: BP 178/80; PULSE 110; RESP 16; O2SAT 97
[2018-01-19 18:07] LABS: AUTOMATED NEUTROPHIL # 32.5 TH/MM3 (1.8-7.7); BASOPHIL # 0.2 TH/MM3 (0-0.2); BASOPHIL % 0.5 % (0.0-2.0); EOSINOPHIL # 0.2 TH/MM3 (0-0.4); EOSINOPHIL % 0.5 % (0.0-4.0); HEMATOCRIT 33.8 % (39.0-51.0); HEMOGLOBIN 10.8 GM/DL (13.0-17.0); LYMPH % 4.2 % (9.0-44.0); LYMPHOCYTE # 1.7 TH/MM3 (1.0-4.8); MEAN CORPUSCULAR HEMOGLOBIN 30.3 PG (27.0-34.0); MEAN CORPUSCULAR HGB CONC 31.9 % (32.0-36.0); MEAN PLATELET VOLUME 11.5 FL (7.0-11.0); MONO % 14.6 % (0.0-8.0); MONOCYTE # 5.9 TH/MM3 (0-0.9); NEUT % 80.2 % (16.0-70.0); PLATELET COUNT 81 TH/MM3 (150-450); RED BLOOD COUNT 3.56 MIL/MM3 (4.50-5.90); RED CELL DISTRIBUTION WIDTH 23.2 % (11.6-17.2); WHITE BLOOD COUNT 40.6 TH/MM3 (4.0-11.0)
[2018-01-19 18:16] LABS: INTERNATIONAL NORMALIZED RATIO 1.1 RATIO; PROTHROMBIN TIME - PATIENT 11.6 SEC (9.8-11.6)
--- NOTE | 2018-01-19 18:21 | PD ---
Physical Exam Date Seen by Provider: Jan 19, 2018 Data Data Last Documented VS Vital Signs Date Time Temp Pulse Resp B/P (MAP) Pulse Ox O2 Delivery O2 Flow Rate FiO2 01/19/18 17:51 97 01/19/18 17:51 110 16 178/80 (112) Room Air 01/19/18 16:22 97.6 Orders Orders Electrocardiogram (01/19/18 16:33) Complete Blood Count With Diff (01/19/18 16:33) Comprehensive Metabolic Panel (01/19/18 16:33) Magnesium (Mg) (01/19/18 16:33) Ckmb (Isoenzyme) Profile (01/19/18 16:33) Troponin I (01/19/18 16:33) Act Partial Throm Time (Ptt) (01/19/18 16:33) Prothrombin Time / Inr (Pt) (01/19/18 16:33) Urinalysis - C+S If Indicated (01/19/18 16:33) Ct Brain W/O Iv Contrast(Rout) (01/19/18 16:33) Ecg Monitoring (01/19/18 16:33) Iv Access Insert/Monitor (01/19/18 16:33) Oximetry (01/19/18 16:33) Sodium Chloride 0.9% Flush (Ns Flush) (01/19/18 16:45) Sodium Chlorid 0.9% 500 Ml Inj (Ns 500 M (01/19/18 16:45) Morphine Inj (Morphine Inj) (01/19/18 16:45) Metoclopramide Inj (Reglan Inj) (01/19/18 16:45) Labs Laboratory Tests Test 01/19/18 17:30 [facility] Medical Record Reviewed: Yes Supervised Visit with MALIKA: Yes Narrative Course I, Dr. Orta, have reviewed the advance practice practitioner's documentation and am in agreement, met with the patient face to face, made the diagnosis, and the medical decision making was done by me. *My assessment and Findings: Patient is a 69-year-old male with history of chronic neutrophilic leukemia currently being followed by Dr. Mac, presents to the ER for evaluation of headache. Patient reports that he recently started a new chemotherapy agent 11 days ago, Tasigna and was concerned that this was causing him to have severe headaches. Patient reports that his headache began this morning and has been persistent despite taking Motrin. Patient did call Dr. Mac today and was told to go to the ER for evaluation. Last Impressions Head CT 01/19/18 1633 Signed Impressions: CONCLUSION: Negative CT Head non contrast. Anaya Orta DO Jan 19, 2018 18:21
[2018-01-19 18:30] LABS: ALBUMIN 3.5 GM/DL (3.4-5.0); AST (GOT) 18 U/L (15-37); BICARBONATE 24.1 MEQ/L (21.0-32.0); BLOOD UREA NITROGEN 12 MG/DL (7-18); CALCIUM 8.9 MG/DL (8.5-10.1); CHLORIDE 97 MEQ/L (98-107); CREATININE 0.96 MG/DL (0.60-1.30); GLOMERULAR FILTRATION RATE 76 ML/MIN (>89); GLUCOSE,RANDOM 221 MG/DL (74-106); MAGNESIUM 2.1 MG/DL (1.5-2.5); SODIUM (NA) 130 MEQ/L (136-145)
[2018-01-19 18:31] LABS: ALT (GPT) 27 U/L (12-78)
[2018-01-19 18:35] LABS: ALKALINE PHOSPHATASE 228 U/L (45-117); TOTAL PROTEIN 7.7 GM/DL (6.4-8.2); TROPONIN I LESS THAN 0.02 NG/ML (0.02-0.05)
[2018-01-19] MEDS ORDERED: MORPHINE SULFATE 8 MG/ML INJ ONE (18:52)
[2018-01-19 19:00] VITALS: BP 179/91; PULSE 102; RESP 16; O2SAT 94
[2018-01-19] MEDS ORDERED: MORPHINE SULFATE 2 MG/ML SYRINGE IV PUSH ONE (19:00)
[2018-01-19 19:09] LABS: BANDS 8 % (0-6); CORRECTED NUCLEATED RBC 1 /100 WBC (0-0); LYMPHOCYTES 4 % (9-44); METAMYELOCYTES 2 % (0-1); MONOCYTES 16 % (0-8); NEUTROPHIL # MANUAL DIFF 32.5 TH/MM3 (1.8-7.7); NUCLEATED RED BLOOD CELL 1 (0-0); POLYS (SEG NEUTROPHILS) 70 % (16-70)
[2018-01-19 19:10] LABS: DOHLE BODIES PRESENT (NONE SEEN); OVALOCYTES 1+ (NORMAL)
[2018-01-19 19:22] LABS: BILIRUBIN, URINE NEG (NEG); BLOOD, URINE SMALL (NEG); GLUCOSE,URINE 50 mg/dL (NEG); KETONE, URINE NEG (NEG); NITRITE,URINE NEG (NEG); SQUAMOUS EPITHELIAL CELL URINE <1 /hpf (0-5); URINE COLOR Straw (YELLW/STRAW); URINE LEUKOCYTE ESTERASE NEG (NEG)
[2018-01-19] MEDS ORDERED: IOHEXOL 350 MG/ML 10 ML VIAL (for RAD DIAG) IVCONTRAST ONE (19:40)
[2018-01-19] MEDS ORDERED: HYDROmorphone HCL PF 0.5 MG/0.5 ML SYRINGE IV PUSH ONE (19:45)
[2018-01-19] MEDS ORDERED: PROCHLORPERAZINE INJ 10 MG/2 ML VIAL IV PUSH ONE (19:45)
--- NOTE | 2018-01-19 20:11 | RADRPT ---
EXAM DATE: 01/19/2018 8:05 PM EDT AGE/SEX: 77 years / Male INDICATIONS: Cephalgia, dizziness, blurred vision. CLINICAL DATA: This is the patient's initial encounter. Patient reports that signs and symptoms have been present for 1 day and indicates a pain score of 10/10. MEDICAL/SURGICAL HISTORY: Hypertension. Diabetes. Lymphoma, CNL cancer. None. RADIATION DOSE: 28.16 CTDI (mGy) ; Combined studies COMPARISON: No prior exams available for comparison. TECHNIQUE: Volumetric scanning was performed using a multi-row detector CT scanner during bolus infu jeffery of 80 ml Omnipaque 350 (iohexol) nonionic water-soluble contrast as a cumulative dose for multi ple exams. The data was post processed with a variety of visualization algorithms including full vo lume maximum intensity projection, multi-planar sliding thin slab reformation, curved planar reformat ion, and surface rendering techniques. Using automated exposure control and adjustment of the mA and /or kV according to patient size, radiation dose was kept as low as reasonably achievable to obtain o ptimal diagnostic quality images. DICOM format image data is available electronically for review and comparison. FINDINGS: There is excellent visualization of the major intracranial arteries out to the second-order branch ve ssels. There is no evidence for aneurysm, vessel truncation or stenosis, and no evidence for vascula r malformation. CONCLUSION: 1. Negative CTA Head. Electronically signed by: Mihai Ott MD 01/19/2018 8:09 PM EDT
--- NOTE | 2018-01-19 20:15 | RADRPT ---
EXAM DATE: 01/19/2018 8:08 PM EDT AGE/SEX: 77 years / Male INDICATIONS: Cephalgia, blurred vision, dizziness. CLINICAL DATA: This is the patient's initial encounter. Patient reports that signs and symptoms have been present for 1 day and indicates a pain score of 3/10. MEDICAL/SURGICAL HISTORY: Cerebrovascular disease. Diabetes. Lymphoma, CNL cancer. None. RADIATION DOSE: 28.19 CTDI (mGy) ; Combined studies COMPARISON: No prior exams available for comparison. TECHNIQUE: Volumetric scanning was performed using a multirow detector CT scanner during bolus infus ion of 80 ml Omnipaque 350 (iohexol) nonionic water-soluble contrast as a cumulative dose for multip le exams. The data was postprocessed with a variety of visualization algorithms including full-volu me maximum intensity projection, multiplanar sliding thin-slab reformation, curved-planar reformation , and surface-rendering techniques. Using automated exposure control and adjustment of the mA and/or kV according to patient size, radiation dose was kept as low as reasonably achievable to obtain opti mal diagnostic quality images. DICOM format image data is available electronically for review and co mparison. Elevated flow velocities and ICA/CCA ratios have been found to correlate with increased degrees of ve ssel stenosis, calculated as percentage of diameter relative to a normal segment of distal ICA/CCA. FINDINGS: Aortic Arch: There is a three-vessel origin of the great vessels from the aorta. No evidence of ost ial narrowing Right Carotid: The right common carotid is widely patent. There is mild calcified atherosclerotic pl aquing at the bifurcation. There is no hemodynamically significant stenosis. The internal carotid and external carotid circulation appears widely patent. Left Carotid: The left common carotid is widely patent. There is moderate plaquing at the bifurcatio n with both hard and soft plaque present. This results in stenosis estimated to be in the range of 40 -50% by NASCET criteria. The more cephalad portion of the internal carotid is widely patent. Vertebrals: The vertebral arteries have a symmetric diameter. No stenotic lesions are seen. The limited portion of pulmonary parenchyma visualized is clear. There are degenerative changes withi n the cervical spine. The soft tissues of the neck are grossly intact. CONCLUSION: 1. Right carotid: Mild calcified after plaquing. No hemodynamically significant stenosis. 2. Left carotid: Moderate atherosclerotic plaquing which is predominantly soft plaque resulting in a pproximately 40-50% stenosis in the origin of the left internal carotid. Electronically signed by: Mihai Ott MD 01/19/2018 8:13 PM EDT
[2018-01-19] MEDS ORDERED: ALLO300T2 PO (21:06)
[2018-01-19 21:07] VITALS: BP 178/84; PULSE 116; RESP 18; O2SAT 98
[2018-01-19] MEDS ORDERED: DEXTROSE 50% IN WATER 50 ML VIAL(D50) IV PUSH PRN (21:15)
[2018-01-19] MEDS ORDERED: SODIUM CHLORIDE 0.9% FLUSH 10 ML FLUSH IV FLUSH PRN (21:15)
[2018-01-19] MEDS ORDERED: BISACODYL 10 MG SUPP RECTAL PRN (21:15)
[2018-01-19] MEDS ORDERED: LACTULOSE SYRUP 20 GM/30 ML CUP PO PRN (21:15)
[2018-01-19] MEDS ORDERED: GLUCAGON 1 MG/ML VIAL OTHER PRN (21:15)
[2018-01-19] MEDS ORDERED: SENNOSIDES 8.6 MG TAB PO PRN (21:15)
[2018-01-19] MEDS ORDERED: ACETAMINOPHEN 325 MG TAB PO PRN (21:15)
[2018-01-19] MEDS ORDERED: NALOXONE HCL 0.4 MG/ML AMP IV PUSH PRN (21:15)
[2018-01-19] MEDS ORDERED: SUMAtriptan SUCCINATE 50 MG TAB PO ONE (21:15)
[2018-01-19] MEDS ORDERED: MAGNESIUM HYDROXIDE SUSP 30 ML CUP PO PRN (21:15)
[2018-01-19] MEDS ORDERED: ONDANSETRON HCL 4 MG/2 ML VIAL IVP PRN (21:15)
[2018-01-19] MEDS: SODIUM CHLOR 0.9% 1000 ML INJ 1,000 ML IV SCH (23:15)
[2018-01-19] MEDS: ENOXAPARIN SODIUM 40 MG/0.4 ML SYRINGE SQ SCH (23:16)
--- NOTE | 2018-01-19 23:16 | HHI.HP ---
HPI Service [facility] Primary Care Physician Fawad Mcqueen MD Admission Diagnosis acute intractable headache, CNL patient on chemo Diagnoses: Travel History International Travel<30 Days: No Contact w/Intl Traveler <30 Da: No Traveled to Known Affected Are: No History of Present Illness 77-year-old male with a past medical history significant for CNL, hypertension, ITP, type 2 diabetes mellitus and gout presents to the emergency department with an intractable headache. The patient reports that yesterday afternoon he initially had a headache that was associated with nausea and sensitivity to light. His symptoms improved until this morning when they returned worse than previous. The patient reports he has the worst headache of his life. He states the pain is a walker river around his head going from the frontal to the occipital lobes. He has sensitivity to light and associated nausea. He was recently started on Nilotinib approximately 10 days ago. He denies any chest pain or shortness of breath. No abdominal pain. No emesis or diarrhea. No lateralizing signs/symptoms. No fevers/chills. Review of Systems Except as stated in HPI: all other systems reviewed are Neg Past Family Social History Past Medical History CNL, hypertension, ITP, type 2 diabetes mellitus and gout Past Surgical History Appendectomy Tonsillectomy Bone marrow aspiration/biopsy Cholecystectomy Reported Medications Reported Meds & Active Scripts Active Reported Allopurinol 300 Mg Tab 300 Mg PO DAILY Benadryl Allergy (Diphenhydramine HCl) 25 Mg Tablet 25 Mg PO DAILY PRN Ibuprofen 200 Mg Tab 200-400 Mg PO Q4H PRN Proscar (Finasteride) 5 Mg Tab 5 Mg PO HS Do not crush. Rapaflo (Silodosin) 8 Mg Cap 8 Mg PO DAILY Lisinopril 20 Mg Tab 20 Mg PO DAILY Klonopin (Clonazepam) 1 Mg Tab 0.5-1 Mg PO HS Metformin ER (Metformin HCl) 500 Mg Kerri 500 Mg PO Q12HR Tasigna (Nilotinib) 150 Mg Cap 150 Mg PO Q12H Take on empty stomach Januvia (Sitagliptin Phosphate) 100 Mg Tab 100 Mg PO HS Allergies: Coded Allergies: No Known Allergies (Unverified Allergy, Unknown, 12/01/17) Family History Negative for CAD/DM Social History Remote history of smoking. Occasional alcohol. No illicit drugs. Physical Exam Vital Signs Vital Signs Date Time Temp Pulse Resp B/P (MAP) Pulse Ox O2 Delivery O2 Flow Rate FiO2 01/19/18 21:07 116 18 178/84 (115) 98 Room Air 01/19/18 19:00 102 16 179/91 (120) 94 Room Air 01/19/18 17:51 97 01/19/18 17:51 110 16 178/80 (112) 97 Room Air 01/19/18 16:22 97.6 115 19 185/86 (119) 99 Room Air Physical Exam GENERAL: male sitting up in bed SKIN: No rashes, ecchymoses or lesions. Cool and dry. HEAD: Atraumatic. Normocephalic. No temporal or scalp tenderness. EYES: Pupils equal round and reactive. Extraocular motions intact. No scleral icterus. No injection or drainage. ENT: Nose without bleeding, purulent drainage or septal hematoma. Throat without erythema, tonsillar hypertrophy or exudate. Uvula midline. Airway patent. NECK: Trachea midline. No JVD or lymphadenopathy. Supple, nontender, no meningeal signs. CARDIOVASCULAR: Regular rate and rhythm without murmurs, gallops, or rubs. RESPIRATORY: Clear to auscultation. Breath sounds equal bilaterally. No wheezes , rales, or rhonchi. GASTROINTESTINAL: Abdomen soft, non-tender, nondistended. No hepato-splenomegaly , or palpable masses. No guarding. MUSCULOSKELETAL: Extremities without clubbing, cyanosis, or edema. No joint tenderness, effusion, or edema noted. No calf tenderness. NEUROLOGICAL: Awake and alert. Cranial nerves II through XII intact. Motor and sensory grossly within normal limits. Normal speech. Laboratory Laboratory Tests Test 01/19/18 17:30 01/19/18 19:00 White Blood Count 40.6 Red Blood Count 3.56 Hemoglobin 10.8 Hematocrit 33.8 Mean Corpuscular Volume 95.0 Mean Corpuscular Hemoglobin 30.3 Mean Corpuscular Hemoglobin Concent 31.9 Red Cell Distribution Width 23.2 Platelet Count 81 Mean Platelet Volume 11.5 Neutrophils (%) (Auto) 80.2 Lymphocytes (%) (Auto) 4.2 Monocytes (%) (Auto) 14.6 Eosinophils (%) (Auto) 0.5 Basophils (%) (Auto) 0.5 Neutrophils # (Auto) 32.5 Lymphocytes # (Auto) 1.7 Monocytes # (Auto) 5.9 Eosinophils # (Auto) 0.2 Basophils # (Auto) 0.2 CBC Comment AUTO DIFF Differential Total Cells Counted 100 Neutrophils % (Manual) 70 Band Neutrophils % 8 Lymphocytes % 4 Monocytes % 16 Neutrophils # (Manual) 32.5 Metamyelocytes 2 Nucleated Red Blood Cells 1 Differential Comment FINAL DIFF MANUAL Dohle Bodies PRESENT Platelet Estimate LOW Platelet Morphology Comment ENLARGED Ovalocytes 1+ Prothrombin Time 11.6 Prothromb Time International Ratio 1.1 Activated Partial Thromboplast Time 27.9 Blood Urea Nitrogen 12 Creatinine 0.96 Random Glucose 221 Total Protein 7.7 Albumin 3.5 Calcium Level 8.9 Magnesium Level 2.1 Alkaline Phosphatase 228 Aspartate Amino Transf (AST/SGOT) 18 Alanine Aminotransferase (ALT/SGPT) 27 Total Bilirubin 1.0 Sodium Level 130 Potassium Level 4.4 Chloride Level 97 Carbon Dioxide Level 24.1 Anion Gap 9 Estimat Glomerular Filtration Rate 76 Total Creatine Kinase 19 Troponin I LESS THAN 0.02 Urine Color Straw Urine Turbidity CLEAR Urine pH 6.0 Urine Specific [place] 1.006 Urine Protein NEG Urine Glucose (UA) 50 Urine Ketones NEG Urine Occult Blood SMALL Urine Nitrite NEG Urine Bilirubin NEG Urine Urobilinogen LESS THAN 2 Urine Leukocyte Esterase NEG Urine WBC 1 Urine Squamous Epithelial Cells <1 Microscopic Urinalysis Comment CULT NOT INDICATED Result Diagram: 01/19/18 17301/19/181729 Caprini VTE Risk Assessment Caprini VTE Risk Assessment: Mod/High Risk (score >= 2) Caprini Risk Assessment Model Point Value = 1 Point Value = 2 Point Value = 3 Point Value = 5 Age 41-60 Minor surgery BMI > 25 kg/m2 Swollen legs Varicose veins or History of unexplained or recurrent spontaneous Oral contraceptives or hormone replacement Sepsis (< 1 month) Serious lung disease, including pneumonia (< 1 month) Abnormal pulmonary function Acute myocardial infarction Congestive heart failure (< 1 month) History of inflammatory bowel disease Medical patient at bed rest Age 61-74 Arthroscopic surgery Major open surgery (> 45 min) Laparoscopic surgery (> 45 min) Malignancy Confined to bed (> 72 hours) Immobilizing plaster cast Central venous access Age >= 75 History of VTE Family history of VTE Factor V Leiden Prothrombin [id number] Lupus anticoagulant Anticardiolipin antibodies Elevated serum homocysteine Heparin-induced thrombocytopenia Other congenital or acquired thrombophilia Stroke (< 1 month) Elective arthroplasty Hip, pelvis, or leg fracture Acute spinal cord injury (< 1 month) Prophylaxis Regimen Total Risk Factor Score Risk Level Prophylaxis Regimen 0-1 Low Early ambulation 2 Moderate Order ONE of the following: *Sequential Compression Device (SCD) *Heparin 5000 units SQ BID 3-4 Higher Order ONE of the following medications: *Heparin 5000 units SQ TID *Enoxaparin/Lovenox 40 mg SQ daily (WT < 150 kg, CrCl > 30 mL/min) *Enoxaparin/Lovenox 30 mg SQ daily (WT < 150 kg, CrCl > 10-29 mL/min) *Enoxaparin/Lovenox 30 mg SQ BID (WT < 150 kg, CrCl > 30 mL/min) AND/OR *Sequential Compression Device (SCD) 5 or more Highest Order ONE of the following medications: *Heparin 5000 units SQ TID (Preferred with Epidurals) *Enoxaparin/Lovenox 40 mg SQ daily (WT < 150 kg, CrCl > 30 mL/min) *Enoxaparin/Lovenox 30 mg SQ daily (WT < 150 kg, CrCl > 10-29 mL/min) *Enoxaparin/Lovenox 30 mg SQ BID (WT < 150 kg, CrCl > 30 mL/min) AND *Sequential Compression Device (SCD) Assessment and Plan Assessment and Plan Assessment/plan: 1. Intractable headache Headache was not relieved with morphine, Dilaudid and Compazine in the emergency department Will try Imitrex Concern for aneurysm/bleed: Head CT and head and neck CTA negative for acute process MRI brain pending May be medication induced, consult medical oncology for assistance 2. CNL Medical oncology consulted, appreciate recommendations 3. Diabetes mellitus Sliding-scale insulin Monitor blood glucose 4. Hypertension/gout Continue home medications FEN Regular diet Electrolytes: Monitor and replete as needed NS at 100 cc/hour Lovenox Physician Certification 2 Midnight Certification Type: Admission for Inpatient Services Order for Inpatient Services The services are ordered in accordance with Medicare regulations or non- Medicare payer requirements, as applicable. In the case of services not specified as inpatient-only, they are appropriately provided as inpatient services in accordance with the 2-midnight benchmark. Estimated LOS (days): 2 2 days is the estimated time the patient will need to remain in the hospital, assuming treatment plan goals are met and no additional complications. Post-Hospital Plan: Not yet determined Anaya Nelson MD Jan 19, 2018 23:16
[2018-01-19 23:24] VITALS: BP 154/72; PULSE 112; RESP 16
[2018-01-20] VITALS (8 sets, daily range): BP systolic 112–185; BP diastolic 61–90; PULSE 100–108; RESP 17–18; TEMP 97.7–98.6; O2SAT 95–99
[2018-01-20] MEDS ORDERED: cloNIDine HCL 0.1 MG TAB PO PRN (01:30)
[2018-01-20] MEDS ORDERED: clonazePAM 1 MG TAB PO ONE (01:30)
[2018-01-20] MEDS ORDERED: SUMAtriptan SUCCINATE 50 MG TAB PO PRN (02:00)
[2018-01-20] MEDS: SODIUM CHLOR 0.9% 1000 ML INJ 1,000 ML IV SCH ×2 (05:30→17:05)
[2018-01-20] MEDS: INSULIN ASPART SUPPLEMENTAL SCALE SQ SCH ×4 (08:00→22:20)
[2018-01-20] MEDS ORDERED: GADODIAMIDE PF 287 MG/ML 5 ML VIAL (for RAD MRI) IVCONTRAST ONE (08:35)
[2018-01-20 08:42] LABS: AUTOMATED NEUTROPHIL # 30.9 TH/MM3 (1.8-7.7); BASOPHIL # 0.2 TH/MM3 (0-0.2); BASOPHIL % 0.4 % (0.0-2.0); EOSINOPHIL # 0.3 TH/MM3 (0-0.4); EOSINOPHIL % 0.8 % (0.0-4.0); HEMATOCRIT 31.6 % (39.0-51.0); HEMOGLOBIN 10.1 GM/DL (13.0-17.0); LYMPH % 4.3 % (9.0-44.0); LYMPHOCYTE # 1.7 TH/MM3 (1.0-4.8); MEAN CELL VOLUME 94.3 FL (80.0-100.0); MEAN CORPUSCULAR HEMOGLOBIN 30.1 PG (27.0-34.0); MEAN CORPUSCULAR HGB CONC 31.9 % (32.0-36.0); MEAN PLATELET VOLUME 11.6 FL (7.0-11.0); MONO % 14.2 % (0.0-8.0); MONOCYTE # 5.4 TH/MM3 (0-0.9); NEUT % 80.3 % (16.0-70.0); PLATELET COUNT 78 TH/MM3 (150-450); RED BLOOD COUNT 3.35 MIL/MM3 (4.50-5.90); RED CELL DISTRIBUTION WIDTH 23.2 % (11.6-17.2); WHITE BLOOD COUNT 38.5 TH/MM3 (4.0-11.0)
[2018-01-20 08:54] LABS: BICARBONATE 23.1 MEQ/L (21.0-32.0); CALCIUM 8.4 MG/DL (8.5-10.1); CREATININE 0.9 MG/DL (0.60-1.30)
[2018-01-20] MEDS ORDERED: DOCUSATE SODIUM 50 MG/SENNA 8.6 MG TAB PO SCH (09:00)
--- NOTE | 2018-01-20 09:02 | RADRPT ---
EXAM DATE: 01/20/2018 8:42 AM EDT AGE/SEX: 77 years / Male INDICATIONS: Cephalgia. CLINICAL DATA: This is the patient's subsequent encounter. Patient reports that signs and symptoms h ave been present for 2 days and indicates a pain score of 3/10. MEDICAL/SURGICAL HISTORY: Hypertension. Diabetes mellitus type II. CNL cancer, skin cancer Ch olecystectomy. Appendectomy. Tonsillectomy. COMPARISON: No prior exams available for comparison. TECHNIQUE: Multiplanar, multisequence examination of the brain was performed without and with 15 ml O mniscan (gadodiamide) contrast as a single exam dose. FINDINGS: There is mild central and cortical atrophy with dilatation of ventricular and sulcal spaces. Very min imal periventricular white matter changes are noted. Small lacunar infarct is seen basal ganglia left side. There is no restricted diffusion to suggest an acute ischemic event. There is no parenchymal hemorrhage. There are no extra-axial fluid collections appreciated. Posterior fossa is unremarkable with midline fourth ventricle. Following intravenous administration gadolinium there is a small venous angioma seen high right centr um semiovale. . There is minimal mucoperiosteal thickening in the sphenoid sinus. CONCLUSION: 1. Incidental venous angioma right hemisphere 2. Incidental sphenoid sinus disease 3. There is no evidence for an ischemic event. 4. No other sinus disease is evident. Electronically signed by: Nirav Ott MD 01/20/2018 9:01 AM EDT
[2018-01-20 10:07] LABS: BANDS 10 % (0-6); LYMPHOCYTES 11 % (9-44); MONOCYTES 14 % (0-8); MYELOCYTES 7 % (0-0); NEUTROPHIL # MANUAL DIFF 28.9 TH/MM3 (1.8-7.7); POLYS (SEG NEUTROPHILS) 58 % (16-70)
[2018-01-20 10:08] LABS: OVALOCYTES 1+ (NORMAL)
[2018-01-20] MEDS: LISINOPRIL 20 MG TAB PO SCH (10:13)
[2018-01-20] MEDS: ALLOPURINOL 300 MG TAB PO SCH (10:13)
[2018-01-20] MEDS: TAMSULOSIN HCL 0.4 MG CAP PO SCH (10:14)
[2018-01-20] MEDS: SODIUM CHLORIDE 0.9% FLUSH 10 ML FLUSH IV FLUSH SCH ×2 (10:14→22:09)
[2018-01-20] MEDS ORDERED: methylPREDNISolone SOD SUCC 125 MG/2 ML VIAL IV PUSH ONE (10:30)
--- NOTE | 2018-01-20 10:47 | MB ---
cc: Carolina Roberson MD DATE: 01/20/2018 REASON FOR CONSULTATION: Intractable headache. HISTORY OF PRESENT ILLNESS: This is a pleasant 77-year-old male with a history of chronic neutrophilic leukemia, hypertension, ITP, diabetes type 2, gout, who presents with a day, near 2-day history of headache that started insidiously. He does not have a history of migraines. He states that it starts mildly and then it diffuses. With some nausea. He had some sensitivity to light. Responsive to sumatriptan apparently. He stated that his gums hurt, but after talking to his son, the issue with his gums started prior to the headache. Scans were done since this was the worst headache he has ever had. He does not have any lateralizing weakness as far as nuchal rigidity, no fever. He denies any chills. No abdominal pain, chest pain. PAST MEDICAL HISTORY: As stated. PAST SURGICAL HISTORY: Appendectomy, tonsillectomy, bone marrow biopsy, cholecystectomy. HOME MEDICATIONS: 1. Allopurinol. 2. Benadryl. 3. Ibuprofen 4. Proscar. 5. Rapaflo. 6. Lisinopril. 7. Klonopin. 8. Metformin. 9. Januvia. 10. A new medicine for the last 5-6 days called [employer]. ALLERGIES: NONE REPORTED. FAMILY HISTORY: Negative. SOCIAL HISTORY: Remote smoking. Occasional alcohol. No drugs. PHYSICAL EXAMINATION: VITAL SIGNS: Temperature is 98.6. Of note, he has been afebrile, heart rate 106, respiratory rate 18, blood pressure 152/81, saturating at 96% on 2 liters. NECK: Supple. No rigidity. No bruits. HEART: Regular. NEUROLOGIC: He is awake and alert. His pupils are reactive. His visual esteban are full. There is no temporal artery induration. Face symmetrical. Tongue is midline. Motor mccloud, he does not exhibit any significant weakness, drift or leg lag. Cerebellar is normal. Toes withdraw. Sensory is normal. His gait I did withhold. LABORATORY STUDIES: White count is elevated due to his CNL. White count is 38.5; hemoglobin 10.1; hematocrit 31.6; platelets are 78,000. His neutrophils are 58. He does have some bands of questionable significance. Chemistry: Sodium was 130 yesterday, today is 133; GFR 82, glucose 221, calcium 8.4. Coag panel is negative. Urine small occult blood. IMAGING STUDIES: Brain MRI showed a venous angioma right hemisphere. Some incidental sphenoid sinus disease, but no ischemic event. CTA is negative of the [place] of [place]. Neck CTA shows 40-50% on the left and mild plaquing on the right. IMPRESSION: Headache may be certainly due to the nilotinib as it is one of the side effects. I believe his son stated that Hematology-Oncology will hold this medicine. I am not sure if sedimentation rates and CRP would be of any benefit but I will order it at this point in time. I am going to put him on a dose of Solu-Medrol, just one time and then certainly it can be discharged home on a Medrol pack. It may help his headache and he can also be discharged on some sumatriptan p.r.n. Continue hydrating. If he is doing well and there are no other issues from Oncology's perspective, certainly he can go home. Please call me with any questions or concerns. MD RACHEL De La Paz/JOSE A , 10:20 AM , 10:45 AM
[2018-01-20] MEDS ORDERED: oxyCODONE/ACETAMINOPHEN 5 MG/325 MG TAB PO PRN (11:00)
[2018-01-20] MEDS ORDERED: LACTULOSE SYRUP 20 GM/30 ML CUP PO PRN (11:00)
[2018-01-20] MEDS ORDERED: MAGNESIUM HYDROXIDE SUSP 30 ML CUP PO PRN (11:00)
[2018-01-20] MEDS ORDERED: SENNOSIDES 8.6 MG TAB PO PRN (11:00)
[2018-01-20] MEDS ORDERED: NALOXONE HCL 0.4 MG/ML AMP IV PUSH PRN (11:00)
[2018-01-20] MEDS ORDERED: ACETAMINOPHEN 325 MG TAB PO PRN (11:00)
[2018-01-20] MEDS ORDERED: HYDROmorphone HCL PF 2 MG/ML VIAL IV PUSH PRN ×3 (11:00)
[2018-01-20] MEDS ORDERED: BISACODYL 10 MG SUPP RECTAL PRN (11:00)
[2018-01-20] MEDS: oxyCODONE/ACETAMINOPHEN 10 MG/325 MG TAB PO PRN ×2 (11:55→18:01)
[2018-01-20] MEDS ORDERED: methylPREDNISolone SO SUCC INJ 250 MG in SODIUM CHLORIDE 0.9% INJ 100 ML IV ONE (12:00)
--- NOTE | 2018-01-20 13:39 | MB ---
cc: Flex Sumner MD DATE: 01/20/2018 ATTENDING PHYSICIAN: Dr. Nelson REASON FOR CONSULTATION: Oncology consulted to render an opinion regarding patient with a chronic neutrophilic leukemia, admitted with intractable headache. HISTORY OF PRESENT ILLNESS: The patient is a 77-year-old male with a history of chronic neutrophilic leukemia who presented to the hospital with a complaint of acute headache that started yesterday. Stated that the headache is in the frontal area and radiates to the bilateral occipital area. He has light sensitivity. He also has nausea associated with headache. He stated that it was the worse headache of his life. He started nilotinib about 12 days ago. Prior to that, he was on Jakafi. He said the headache is a little better this morning. His CT scan was unremarkable. He denies any fevers or chills. He denies any chest pain, shortness of breath, or cough. He has no change in urinary habits. He denies abdominal pain. PAST MEDICAL HISTORY: 1. Chronic neutrophilic leukemia. 2. Hypertension. 3. Idiopathic thrombocytopenic purpura. 4. Diabetes mellitus. 5. Gout. PAST SURGICAL HISTORY: 1. Appendectomy. 2. Tonsillectomy. 3. Bone marrow biopsy. 4. Cholecystectomy. FAMILY HISTORY: Positive for no coronary artery disease. SOCIAL HISTORY: Quit tobacco. He drinks occasionally. ALLERGIES: NO KNOWN DRUG ALLERGIES. CURRENT MEDICATIONS: 1. Proscar. 2. Klonopin. 3. Arlene-Colace. 4. Methylprednisolone. 5. Allopurinol. 6. Lisinopril. 7. Tamsulosin. 8. Nilotinib which is now on hold. REVIEW OF SYSTEMS: CONSTITUTION: Negative. EYES: As above. ENT: Negative. CARDIOVASCULAR: No chest pressure or palpitation. RESPIRATORY: He denies any shortness of breath or cough. GASTROINTESTINAL: As above. GENITOURINARY: No dysuria or hematuria. MUSCULOSKELETAL: Negative. NEUROLOGIC: As above. HEMATOLOGIC: As above. ENDOCRINE: Negative. DERMATOLOGY: Negative. PSYCHIATRIC: Negative. PHYSICAL EXAMINATION: VITAL SIGNS: Temperature 98, blood pressure 152/75, O2 saturation 95 percent on 2 liters nasal cannula. GENERAL: He is alert, oriented x 3. He is complaining of a headache. HEENT: Atraumatic, normocephalic. Pupils are equal, round, reactive to light. Extraocular muscles intact. No scleral icterus. Oropharynx, dry mucosa. No lesion, no thrush or mucositis. NECK: No thyromegaly. No palpable mass. LYMPHATIC: No palpable cervical, clavicular, axillary, or inguinal lymph nodes. CARDIOVASCULAR: Regular S1, S2. No murmur. LUNGS: Clear to auscultation bilaterally. ABDOMEN: Soft, nontender. Cannot palpate liver or spleen. EXTREMITIES: No cyanosis, no clubbing, no edema. SKIN: No rash or petechiae. NEUROLOGIC: Nonfocal. LABORATORY DATA: WBC 38.4, hemoglobin 10.1, platelet count 78,000. Creatinine 0.9, ESR pending. C-reactive protein 9.7. ASSESSMENT: 1. Chronic neutrophilic leukemia. He is currently under the care of Dr. Mac. He presented with leukocytosis and thrombocytopenia. He was treated with Hydrea. He was also given interferon at one point. He was given intermediate dose jona-C and developed a prolonged myelosuppression. He was also treated with Jakafi and recently switched to nilotinib. His white blood cell count has trended up since November. His hemoglobin is stable. His platelet count is also relatively stable. He started nilotinib about 12 days ago. He started having intractable headache yesterday. There is a possibility that the headache is due to the nilotinib. I told him to hold the nilotinib for now, and continue to monitor him. Can consider rechallenging him with nilotinib once his headache resolves to see if it recurs. He will followup with Dr. Mac. 2. Intractable headache. CT head was unremarkable. Brain MRI also did not show any acute process. C-reactive protein is elevated. Sedimentation rate is pending. He has been evaluated by Dr. Roberson and was started on steroids. 3. Diabetes mellitus. 4. History of ITP. His platelet count is stable. 5. Hypertension. RECOMMENDATIONS: 1. Hold nilotinib. 2. Monitor CBC. 3. The patient can be discharged once cleared by neurology. 4. He can followup with Dr. Mac. Thank you, Dr. Nelson, for asking me to see this patient. Flex Sumner MD BYErica/DL , 01:06 PM , 01:37 PM JAKE
--- NOTE | 2018-01-20 13:41 | HHI.PR ---
Subjective Remarks 77-year-old male with a past medical history significant for CNL, hypertension, ITP, type 2 diabetes mellitus and gout presents to the emergency department with an intractable headache. The patient reports that yesterday afternoon he initially had a headache that was associated with nausea and sensitivity to light. His symptoms improved until this morning when they returned worse than previous. The patient reports he has the worst headache of his life. He states the pain is a lone pine around his head going from the frontal to the occipital lobes. He has sensitivity to light and associated nausea. He was recently started on Nilotinib approximately 10 days ago. He denies any chest pain or shortness of breath. No abdominal pain. No emesis or diarrhea. No lateralizing signs/symptoms. No fevers/chills. 01-20 PATIENT HAS BEEN SEEN BY NEUROLOGY STARTED ON SOLUMEDROL IMPROVED WITH IMITREX MONITOR TODAY HOPEFULLY HOME IN NEXT 24 TO 48 HOURS DW RN AND PT AND ONCOLOGY AND FAMILY PT AND OT AM LABS Objective Vitals Vital Signs Date Time Temp Pulse Resp B/P (MAP) Pulse Ox O2 Delivery O2 Flow Rate FiO2 01/20/18 11:58 01/20/18 08:00 98.0 101 18 152/75 (100) 95 01/20/18 07:46 Nasal Cannula 2.00 96 01/20/18 05:16 152/81 (104) 97 01/20/18 03:28 98.6 106 18 184/86 (118) 97 01/20/18 01:01 01/20/18 00:15 98.2 108 17 185/90 (121) 99 01/20/18 00:15 Nasal Cannula 2.00 01/19/18 23:24 112 16 154/72 (99) Nasal Cannula 2.00 96 01/19/18 21:07 116 18 178/84 (115) 98 Room Air 01/19/18 19:00 102 16 179/91 (120) 94 Room Air 01/19/18 17:51 97 01/19/18 17:51 110 16 178/80 (112) 97 Room Air 01/19/18 16:22 97.6 115 19 185/86 (119) 99 Room Air I/O 01/19/18 01/19/18 01/19/18 01/20/18 01/20/18 01/20/18 07:00 15:00 23:00 07:00 15:00 23:00 Intake Total 500 ml 1425 ml Balance 500 ml 1425 ml Intake Oral 360 ml IV Total 500 ml 1065 ml # Voids 3 # Bowel Movements 0 Result Diagram: 01/20/18 0748 01/20/18 0748 Other Results Laboratory Tests Test 01/19/18 17:30 01/19/18 19:00 01/20/18 07:48 White Blood Count 40.6 TH/MM3 38.5 TH/MM3 Red Blood Count 3.56 MIL/MM3 3.35 MIL/MM3 Hemoglobin 10.8 GM/DL 10.1 GM/DL Hematocrit 33.8 % 31.6 % Mean Corpuscular Volume 95.0 FL 94.3 FL Mean Corpuscular Hemoglobin 30.3 PG 30.1 PG Mean Corpuscular Hemoglobin Concent 31.9 % 31.9 % Red Cell Distribution Width 23.2 % 23.2 % Platelet Count 81 TH/MM3 78 TH/MM3 Mean Platelet Volume 11.5 FL 11.6 FL Neutrophils (%) (Auto) 80.2 % 80.3 % Lymphocytes (%) (Auto) 4.2 % 4.3 % Monocytes (%) (Auto) 14.6 % 14.2 % Eosinophils (%) (Auto) 0.5 % 0.8 % Basophils (%) (Auto) 0.5 % 0.4 % Neutrophils # (Auto) 32.5 TH/MM3 30.9 TH/MM3 Lymphocytes # (Auto) 1.7 TH/MM3 1.7 TH/MM3 Monocytes # (Auto) 5.9 TH/MM3 5.4 TH/MM3 Eosinophils # (Auto) 0.2 TH/MM3 0.3 TH/MM3 Basophils # (Auto) 0.2 TH/MM3 0.2 TH/MM3 CBC Comment AUTO DIFF AUTO DIFF Differential Total Cells Counted 100 100 Neutrophils % (Manual) 70 % 58 % Band Neutrophils % 8 % 10 % Lymphocytes % 4 % 11 % Monocytes % 16 % 14 % Neutrophils # (Manual) 32.5 TH/MM3 28.9 TH/MM3 Metamyelocytes 2 % Nucleated Red Blood Cells 1 /100 WBC Differential Comment FINAL DIFF MANUAL FINAL DIFF MANUAL Dohle Bodies PRESENT Platelet Estimate LOW LOW Platelet Morphology Comment ENLARGED NORMAL Ovalocytes 1+ 1+ Prothrombin Time 11.6 SEC Prothromb Time International Ratio 1.1 RATIO Activated Partial Thromboplast Time 27.9 SEC Blood Urea Nitrogen 12 MG/DL 9 MG/DL Creatinine 0.96 MG/DL 0.90 MG/DL Random Glucose 221 MG/DL 221 MG/DL Total Protein 7.7 GM/DL Albumin 3.5 GM/DL Calcium Level 8.9 MG/DL 8.4 MG/DL Magnesium Level 2.1 MG/DL Alkaline Phosphatase 228 U/L Aspartate Amino Transf (AST/SGOT) 18 U/L Alanine Aminotransferase (ALT/SGPT) 27 U/L Total Bilirubin 1.0 MG/DL Sodium Level 130 MEQ/L 133 MEQ/L Potassium Level 4.4 MEQ/L 4.3 MEQ/L Chloride Level 97 MEQ/L 99 MEQ/L Carbon Dioxide Level 24.1 MEQ/L 23.1 MEQ/L Anion Gap 9 MEQ/L 11 MEQ/L Estimat Glomerular Filtration Rate 76 ML/MIN 82 ML/MIN Total Creatine Kinase 19 U/L Troponin I LESS THAN 0.02 NG/ML Urine Color Straw Urine Turbidity CLEAR Urine pH 6.0 Urine Specific [place] 1.006 Urine Protein NEG mg/dL Urine Glucose (UA) 50 mg/dL Urine Ketones NEG mg/dL Urine Occult Blood SMALL Urine Nitrite NEG Urine Bilirubin NEG Urine Urobilinogen LESS THAN 2 mg/dL Urine Leukocyte Esterase NEG Urine WBC 1 /hpf Urine Squamous Epithelial Cells <1 /hpf Microscopic Urinalysis Comment CULT NOT INDICATED Myelocytes 7 % C-Reactive Protein 9.71 MG/DL Imaging Last Impressions Brain MRI 01/20/18 0000 Signed Impressions: CONCLUSION: 1. Incidental venous angioma right hemisphere 2. Incidental sphenoid sinus disease 3. There is no evidence for an ischemic event. 4. No other sinus disease is evident. Neck CTA 01/19/181820 Signed Impressions: CONCLUSION: 1. Right carotid: Mild calcified after plaquing. No hemodynamically significan t stenosis. 2. Left carotid: Moderate atherosclerotic plaquing which is predominantly soft plaque resulting in approximately 40-50% stenosis in the origin of the left in ternal carotid. Head CTA 01/19/181820 Signed Impressions: CONCLUSION: 1. Negative CTA Head. Head CT 01/19/18 1633 Signed Impressions: CONCLUSION: Negative CT Head non contrast. Objective Remarks GENERAL: Awake alert and oriented 3 talkative and cooperative SKIN: Warm and dry. HEAD: Atraumatic. Normocephalic. EYES: Pupils equal and round. No scleral icterus. No injection or drainage. Extraocular muscles intact ENT: No nasal bleeding or discharge. Mucous membranes pink and moist. Tongue is midline supple NECK: Trachea midline. No JVD. Supple S1-S2 no S3 or S4 CARDIOVASCULAR: Regular rate and rhythm. RESPIRATORY: No accessory muscle use. Clear to auscultation. Breath sounds equal bilaterally. GASTROINTESTINAL: Abdomen soft, non-tender, nondistended. Hepatic and splenic margins not palpable. MUSCULOSKELETAL: Extremities without clubbing, cyanosis, or edema. No obvious deformities. NEUROLOGICAL: Awake and alert. No obvious cranial nerve deficits. Motor grossly within normal limits. 4 out of 5 muscle strength in the arms and legs. Normal speech. PSYCHIATRIC: Appropriate mood and affect; insight and judgment normal. Medications and IVs Current Medications Sodium Chloride (NS Flush) 2 ml UNSCH PRN IVF FLUSH AFTER USING IV ACCESS; Start 01/19/18 at 16:45; Stop 01/20/18 at 11:21; Status DC Sodium Chloride 500 ml @ 500 mls/hr BOLUS ONCE IV Last administered on at 17:43; Start 01/19/18 at 16:45; Stop 01/19/18 at 17:44; Status DC Morphine Sulfate (Morphine Inj) 4 mg ONCE ONCE IV PUSH Last administered on at 17:44; Start 01/19/18 at 16:45; Stop 01/19/18 at 16:46; Status DC Metoclopramide HCl (Reglan Inj) 10 mg ONCE ONCE IV PUSH Last administered on at 17:43; Start 01/19/18 at 16:45; Stop 01/19/18 at 16:46; Status DC Morphine Sulfate (Morphine Inj) 2 mg ONCE ONCE IV PUSH ; Start 01/19/18 at 19: 00; Stop 01/19/18 at 19:01; Status DC Morphine Sulfate (Morphine Inj) 4 mg ONCE ONCE IV PUSH ; Start 01/19/18 at 19: 00; Stop 01/19/18 at 19:01; Status DC Morphine Sulfate (Morphine Inj) 8 mg STK-MED ONCE .ROUTE Last administered on at 18:56; Start 01/19/18 at 18:52; Stop 01/19/18 at 18:53; Status DC Prochlorperazine Edisylate (Compazine Inj) 5 mg ONCE ONCE IV PUSH Last administered on 01/19/18at 20:03; Start 01/19/18 at 19:45; Stop 01/19/18 at 19:46 ; Status DC Sodium Chloride 500 ml @ 500 mls/hr BOLUS ONCE IV Last administered on at 21:01; Start 01/19/18 at 19:45; Stop 01/19/18 at 20:44; Status DC Hydromorphone HCl (Dilaudid Pf Inj) 0.5 mg ONCE ONCE IV PUSH Last administered on 01/19/18at 20:04; Start 01/19/18 at 19:45; Stop 01/19/18 at 19:46 ; Status DC Iohexol (Omnipaque 350 Inj) 80 ml STK-MED ONCE IVCONTRAST Last administered on 01/19/18at 19:40; Start 01/19/18 at 19:40; Stop 01/19/18 at 19:41; Status DC Sumatriptan Succinate (Imitrex) 50 mg ONCE ONCE PO Last administered on at 22:43; Start 01/19/18 at 21:15; Stop 01/19/18 at 21:32; Status DC Sodium Chloride 1,000 ml @ 100 mls/hr Q10H IV Last administered on 01/19/18at 23:15; Start 01/19/18 at 21:05 Sodium Chloride (NS Flush) 2 ml UNSCH PRN IV FLUSH FLUSH AFTER USING IV ACCESS ; Start 01/19/18 at 21:15 Sodium Chloride (NS Flush) 2 ml BID IV FLUSH Last administered on 01/20/18at 10: 14; Start 01/20/18 at 09:00 Acetaminophen (Tylenol) 650 mg Q4H PRN PO TEMP > 100.4; Start 01/19/18 at 21:15 Ondansetron HCl (Zofran Inj) 4 mg Q6H PRN IVP NAUSEA OR VOMITING; Start at 21:15 Enoxaparin Sodium (Lovenox Inj) 40 mg Q24H SQ Last administered on 01/19/18at 23 :16; Start 01/19/18 at 22:00 Naloxone HCl (Narcan Inj) 0.4 mg UNSCH PRN IV PUSH SEE LABEL COMMENTS; Start at 21:15; Stop 01/20/18 at 11:20; Status DC Senna/Docusate Sodium (Arlene-Colace) 1 tab BID PO Last administered on at 10:14; Start 01/20/18 at 09:00; Stop 01/20/18 at 11:20; Status DC Magnesium Hydroxide (Milk Of Magnesia Liq) 30 ml Q12H PRN PO Mild constipation ; Start 01/19/18 at 21:15; Stop 01/20/18 at 11:20; Status DC Sennosides (Senokot) 17.2 mg Q12H PRN PO Moderate constipation; Start 01/19/18 at 21:15; Stop 01/20/18 at 11:20; Status DC Bisacodyl (Dulcolax Supp) 10 mg DAILY PRN RECTAL SEVERE CONSITIPATION; Start at 21:15; Stop 01/20/18 at 11:20; Status DC Lactulose (Lactulose Liq) 30 ml DAILY PRN PO SEVERE CONSITIPATION; Start at 21:15; Stop 01/20/18 at 11:20; Status DC Allopurinol (Zyloprim) 300 mg DAILY PO Last administered on 01/20/18at 10:13; Start 01/20/18 at 09:00 Finasteride (Proscar) 5 mg HS PO ; Start 01/20/18 at 21:00 Lisinopril (Prinivil) 20 mg DAILY PO Last administered on 01/20/18at 10:13; Start 01/20/18 at 09:00 Tamsulosin HCl (Flomax) 0.4 mg DAILY PO Last administered on 01/20/18at 10:14; Start 01/20/18 at 09:00 Dextrose (D50w (Vial) Inj) 50 ml UNSCH PRN IV PUSH HYPOGLYCEMIA-SEE COMMENTS; Start 01/19/18 at 21:15 Glucagon (Glucagon Inj) 1 mg UNSCH PRN OTHER HYPOGLYCEMIA-SEE COMMENTS; Start 01/19/18 at 21:15 Insulin Aspart (NovoLOG SUPPLEMENTAL SCALE) 1 ACHS SLIDING SCALE SQ Last administered on 01/20/18at 12:00; Start 01/20/18 at 08:00 Clonazepam (KlonoPIN) 1 mg ONCE ONCE PO Last administered on 01/20/18at 02:03; Start 01/20/18 at 01:30; Stop 01/20/18 at 01:31; Status DC Clonidine (Catapres) 0.1 mg Q6H PRN PO SEE LABEL COMMENTS Last administered on 01/20/18at 03:35; Start 01/20/18 at 01:30 Clonazepam (KlonoPIN) 1 mg HS PO ; Start 01/20/18 at 21:00 Sumatriptan Succinate (Imitrex) 50 mg UNSCH X1 PRN PO IF 1ST DOSE INEFFECTIVE Last administered on 01/20/18at 02:03; Start 01/20/18 at 02:00; Stop 01/20/18 at 04:00; Status DC Gadodiamide (Omniscan Pf Inj) 15 ml STK-MED ONCE IVCONTRAST Last administered on 01/20/18at 08:35; Start 01/20/18 at 08:35; Stop 01/20/18 at 08:36; Status DC Methylprednisolone Sodium Succinate (SoluMEDROL INJ) 250 mg ONCE ONCE IV PUSH ; Start 01/20/18 at 10:30; Stop 01/20/18 at 10:31; Status Cancel Acetaminophen (Tylenol) 650 mg Q6H PRN PO PAIN SCALE 1 TO 2; Start 01/20/18 at 11:00 Oxycodone/ Acetaminophen (Percocet 5-325 Mg) 1 tab Q6H PRN PO PAIN SCALE 3 TO 5; Start 01/20/18 at 11:00 Oxycodone/ Acetaminophen (Percocet 10-325 Mg) 1 tab Q6H PRN PO PAIN SCALE 6 TO 10 Last administered on 01/20/18at 11:55; Start 01/20/18 at 11:00 Hydromorphone HCl (Dilaudid Pf Inj) 0.5 mg Q3H PRN IV PUSH Pain 3-5; if unable to take PO; Start 01/20/18 at 11:00 Hydromorphone HCl (Dilaudid Pf Inj) 1 mg Q3H PRN IV PUSH Pain 6-10;if unable to take PO; Start 01/20/18 at 11:00 Hydromorphone HCl (Dilaudid Pf Inj) 1 mg Q3H PRN IV PUSH BREAKTHROUGH PAIN; Start 01/20/18 at 11:00 Naloxone HCl (Narcan Inj) 0.4 mg UNSCH PRN IV PUSH SEE LABEL COMMENTS; Start at 11:00 Senna/Docusate Sodium (Arlene-Colace) 1 tab BID PO ; Start 01/20/18 at 21:00 Magnesium Hydroxide (Milk Of Magnesia Liq) 30 ml Q12H PRN PO Mild constipation ; Start 01/20/18 at 11:00 Sennosides (Senokot) 17.2 mg Q12H PRN PO Moderate constipation; Start 01/20/18 at 11:00 Bisacodyl (Dulcolax Supp) 10 mg DAILY PRN RECTAL SEVERE CONSITIPATION; Start at 11:00 Lactulose (Lactulose Liq) 30 ml DAILY PRN PO SEVERE CONSITIPATION; Start at 11:00 Methylprednisolone Sodium Succinate 250 mg/Sodium Chloride 104 ml @ 52 mls/hr ONCE ONCE IV ; Start 01/20/18 at 12:00; Stop 01/20/18 at 13:59 A/P Assessment and Plan 1. Intractable headache Headache was not relieved with morphine, Dilaudid and Compazine in the emergency department Will try Imitrex Concern for aneurysm/bleed: Head CT and head and neck CTA negative for acute process MRI brain pending May be medication induced, consult medical oncology for assistance ONCOLOGY AND NEUROLOGY CONSULTS SOLUMEDROL 2. CNL Medical oncology consulted, appreciate recommendations 3. Diabetes mellitus Sliding-scale insulin Monitor blood glucose 4. Hypertension/gout Continue home medications FEN Regular diet Electrolytes: Monitor and replete as needed NS at 100 cc/hour Lovenox HOPEFULLY HOME NEXT 24 TO 48 HOURS Discharge Planning HOPEFULLY DC IN NEXT 24 TO 48 HOURS Nirav Guerrero DO Jan 20, 2018 13:41
[2018-01-20] MEDS ORDERED: clonazePAM 1 MG TAB PO SCH (21:00)
[2018-01-20] MEDS ORDERED: FINASTERIDE 5 MG TAB PO SCH (21:00)
--- NOTE | 2018-01-20 21:05 | EKG ---
Date Performed: 01/19/2018 Time Performed: 17:57:46 PTAGE: 77 years EKG: SINUS TACHYCARDIA POSSIBLE LEFT ATRIAL ENLARGEMENT ABNORMAL RHYTHM ECG PREVIOUS TRACING : 12/01/2017 11.08 Since the previous tracing, no significant change noted DOCTOR: Yaritza Brown Interpretating Date/Time 01/20/2018 21:04:47
[2018-01-20] MEDS: DOCUSATE SODIUM 50 MG/SENNA 8.6 MG TAB PO SCH (22:09)
[2018-01-20] MEDS: ENOXAPARIN SODIUM 40 MG/0.4 ML SYRINGE SQ SCH (22:10)
[2018-01-21 00:35] VITALS: BP 108/59; PULSE 90; RESP 17; TEMP 97.3; O2SAT 95
[2018-01-21 04:55] LABS: HEMATOCRIT 29.4 % (39.0-51.0); HEMOGLOBIN 9.5 GM/DL (13.0-17.0); MEAN CELL VOLUME 92.6 FL (80.0-100.0); MEAN CORPUSCULAR HEMOGLOBIN 30.1 PG (27.0-34.0); MEAN CORPUSCULAR HGB CONC 32.5 % (32.0-36.0); MEAN PLATELET VOLUME 10.7 FL (7.0-11.0); PLATELET COUNT 67 TH/MM3 (150-450); RED BLOOD COUNT 3.17 MIL/MM3 (4.50-5.90); RED CELL DISTRIBUTION WIDTH 22.7 % (11.6-17.2); WHITE BLOOD COUNT 39.8 TH/MM3 (4.0-11.0)
[2018-01-21 04:57] VITALS: BP 112/61; PULSE 95; RESP 17; TEMP 97.6; O2SAT 95
[2018-01-21 05:16] LABS: ALT (GPT) 20 U/L (12-78); AST (GOT) 12 U/L (15-37); BICARBONATE 23.2 MEQ/L (21.0-32.0); BLOOD UREA NITROGEN 21 MG/DL (7-18); CALCIUM 8.3 MG/DL (8.5-10.1); CHLORIDE 98 MEQ/L (98-107); GLOMERULAR FILTRATION RATE 65 ML/MIN (>89); GLUCOSE,RANDOM 254 MG/DL (74-106); MAGNESIUM 2.4 MG/DL (1.5-2.5); SODIUM (NA) 131 MEQ/L (136-145)
[2018-01-21 05:32] LABS: ALKALINE PHOSPHATASE 189 U/L (45-117); FREE T4 1.59 NG/DL (0.76-1.46); PHOSPHORUS 3.1 MG/DL (2.5-4.9); TOTAL BILIRUBIN ADULT 0.5 MG/DL (0.2-1.0); TOTAL PROTEIN 6.6 GM/DL (6.4-8.2)
[2018-01-21] MEDS: DOCUSATE SODIUM 50 MG/SENNA 8.6 MG TAB PO SCH (07:47)
[2018-01-21] MEDS: ALLOPURINOL 300 MG TAB PO SCH (07:47)
[2018-01-21] MEDS: TAMSULOSIN HCL 0.4 MG CAP PO SCH (07:47)
[2018-01-21] MEDS: LISINOPRIL 20 MG TAB PO SCH (07:47)
[2018-01-21 08:00] VITALS: BP 129/61; PULSE 96; RESP 16; TEMP 97.3; O2SAT 95
[2018-01-21] MEDS: INSULIN ASPART SUPPLEMENTAL SCALE SQ SCH (08:00)
[2018-01-21] MEDS: SODIUM CHLORIDE 0.9% FLUSH 10 ML FLUSH IV FLUSH SCH (09:00)
[2018-01-21] MEDS ORDERED: MEDR4PAK PO (09:02)
--- NOTE | 2018-01-21 09:04 | HHI.FF ---
Face to Face Verification Diagnosis: (1) Intractable headache (2) Chronic neutrophilic leukemia Physical Therapy Order: Evaluate and Treat Home Health Nursing Order: Medical education Signs/symptoms of disease process Diabetic education Medication education-adverse effect I have seen patient Dao Li on 01/21/18. My clinical findings support the need for the requested home health care services because: Ltd mobility - disease progression I certify that my clinical findings support that this patient is homebound because: Unsteady gait/balance Sandra Palomares Jan 21, 2018 09:04
--- NOTE | 2018-01-21 09:05 | HHI.DCPOC ---
Discharge Care Plan Diagnosis: (1) Intractable headache (2) Chronic neutrophilic leukemia Goals to Promote Your Health * To prevent worsening of your condition and complications * To maintain your health at the optimal level Directions to Meet Your Goals Take your medications as prescribed Follow your dietary instruction Follow activity as directed Keep your appointments as scheduled Take your immunizations and boosters as scheduled If your symptoms worsen call your PCP, if no PCP go to Urgent Care Center or Emergency Room Smoking is Dangerous to Your Health. Avoid second hand smoke Call the 24-hour hour crisis hotline for domestic abuse at Sandra Palomares Jan 21, 2018 09:05
[2018-01-21] MEDS ORDERED: IMIT50TA PO (10:51)
[2018-01-21 11:00] LABS: BANDS 21 % (0-6); LYMPHOCYTES 9 % (9-44); MONOCYTES 7 % (0-8); MYELOCYTES 5 % (0-0); NEUTROPHIL # MANUAL DIFF 33.4 TH/MM3 (1.8-7.7); POLYS (SEG NEUTROPHILS) 58 % (16-70)
[2018-01-21 11:02] LABS: ACANTHOCYTES 1+ (NORMAL)
--- NOTE | 2018-01-21 11:06 | HHI.DS ---
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 The patient reports that yesterday afternoon he initially had a headache that was associated with nausea and sensitivity to light. His symptoms improved until this morning when they returned worse than previous. The patient reports he has the worst headache of his life. He states the pain is a knik around his head going from the frontal to the occipital lobes. He has sensitivity to light and associated nausea. He was recently started on Nilotinib approximately 10 days ago. He denies any chest pain or shortness of breath. No abdominal pain. No emesis or diarrhea. No lateralizing signs/symptoms. No fevers/chills. CBC/BMP: 01/21/18 0330 01/21/18 0330 Significant Findings Laboratory Tests Test 01/19/18 17:30 01/19/18 19:00 01/20/18 07:48 01/21/18 03:30 White Blood Count 40.6 TH/MM3 (4.0-11.0) 38.5 TH/MM3 (4.0-11.0) 39.8 TH/MM3 (4.0-11.0) Red Blood Count 3.56 MIL/MM3 (4.50-5.90) 3.35 MIL/MM3 (4.50-5.90) 3.17 MIL/MM3 (4.50-5.90) Hemoglobin 10.8 GM/DL (13.0-17.0) 10.1 GM/DL (13.0-17.0) 9.5 GM/DL (13.0-17.0) Hematocrit 33.8 % (39.0-51.0) 31.6 % (39.0-51.0) 29.4 % (39.0-51.0) Mean Corpuscular Hemoglobin Concent 31.9 % (32.0-36.0) 31.9 % (32.0-36.0) Red Cell Distribution Width 23.2 % (11.6-17.2) 23.2 % (11.6-17.2) 22.7 % (11.6-17.2) Platelet Count 81 TH/MM3 (150-450) 78 TH/MM3 (150-450) 67 TH/MM3 (150-450) Mean Platelet Volume 11.5 FL (7.0-11.0) 11.6 FL (7.0-11.0) Neutrophils (%) (Auto) 80.2 % (16.0-70.0) 80.3 % (16.0-70.0) Lymphocytes (%) (Auto) 4.2 % (9.0-44.0) 4.3 % (9.0-44.0) Monocytes (%) (Auto) 14.6 % (0.0-8.0) 14.2 % (0.0-8.0) Neutrophils # (Auto) 32.5 TH/MM3 (1.8-7.7) 30.9 TH/MM3 (1.8-7.7) Monocytes # (Auto) 5.9 TH/MM3 (0-0.9) 5.4 TH/MM3 (0-0.9) Band Neutrophils % 8 % (0-6) 10 % (0-6) Lymphocytes % 4 % (9-44) Monocytes % 16 % (0-8) 14 % (0-8) Neutrophils # (Manual) 32.5 TH/MM3 (1.8-7.7) 28.9 TH/MM3 (1.8-7.7) Metamyelocytes 2 % (0-1) Nucleated Red Blood Cells 1 /100 WBC (0-0) Dohle Bodies PRESENT (NONE SEEN) Platelet Estimate LOW (NORMAL) LOW (NORMAL) Platelet Morphology Comment ENLARGED (NORMAL) Ovalocytes 1+ (NORMAL) 1+ (NORMAL) Random Glucose 221 MG/DL (74-106) 221 MG/DL (74-106) 254 MG/DL (74-106) Alkaline Phosphatase 228 U/L (45-117) 189 U/L (45-117) Sodium Level 130 MEQ/L (136-145) 133 MEQ/L (136-145) 131 MEQ/L (136-145) Chloride Level 97 MEQ/L (98-107) Estimat Glomerular Filtration Rate 76 ML/MIN (>89) 82 ML/MIN (>89) 65 ML/MIN (>89) Total Creatine Kinase 19 U/L (39-308) Troponin I LESS THAN 0.02 NG/ML Urine Occult Blood SMALL (NEG) Myelocytes 7 % (0-0) Erythrocyte Sedimentation Rate 39 mm/hr (0-20) Calcium Level 8.4 MG/DL (8.5-10.1) 8.3 MG/DL (8.5-10.1) C-Reactive Protein 9.71 MG/DL (0.00-0.30) Blood Urea Nitrogen 21 MG/DL (7-18) Albumin 3.0 GM/DL (3.4-5.0) Aspartate Amino Transf (AST/SGOT) 12 U/L (15-37) Free Thyroxine 1.59 NG/DL (0.76-1.46) Thyroid Stimulating Hormone 3rd Gen 0.339 uIU/ML (0.358-3.740) Imaging Last Impressions Brain MRI 01/20/18 0000 Signed Impressions: CONCLUSION: 1. Incidental venous angioma right hemisphere 2. Incidental sphenoid sinus disease 3. There is no evidence for an ischemic event. 4. No other sinus disease is evident. Neck CTA 01/19/18 1821 Signed Impressions: CONCLUSION: 1. Right carotid: Mild calcified after plaquing. No hemodynamically significan t stenosis. 2. Left carotid: Moderate atherosclerotic plaquing which is predominantly soft plaque resulting in approximately 40-50% stenosis in the origin of the left in ternal carotid. Head CTA 01/19/18 1821 Signed Impressions: CONCLUSION: 1. Negative CTA Head. Head CT 01/19/18 1633 Signed Impressions: CONCLUSION: Negative CT Head non contrast. PE at Discharge GENERAL: Awake alert and oriented 3 talkative and cooperative SKIN: Warm and dry. HEAD: Atraumatic. Normocephalic. EYES: Pupils equal and round. No scleral icterus. No injection or drainage. Extraocular muscles intact ENT: No nasal bleeding or discharge. Mucous membranes pink and moist. Tongue is midline supple NECK: Trachea midline. No JVD. Supple S1-S2 no S3 or S4 CARDIOVASCULAR: Regular rate and rhythm. RESPIRATORY: No accessory muscle use. Clear to auscultation. Breath sounds equal bilaterally. GASTROINTESTINAL: Abdomen soft, non-tender, nondistended. Hepatic and splenic margins not palpable. MUSCULOSKELETAL: Extremities without clubbing, cyanosis, or edema. No obvious deformities. NEUROLOGICAL: Awake and alert. No obvious cranial nerve deficits. Motor grossly within normal limits. 4 out of 5 muscle strength in the arms and legs. Normal speech. PSYCHIATRIC: Appropriate mood and affect; insight and judgment normal. Pt update on day of discharge Patient no longer having headache Cleared by Neurology Cleared by oncology plan to DC if glucose < 200. Pt to resume metformin and Januvia after DC Hospital Course 1. Intractable headache Headache was not relieved with morphine, Dilaudid and Chlorpazine in the emergency department resolved after - Imitrex Concern for aneurysm/bleed: Head CT and head and neck CTA negative for acute process MRI brain 1. Incidental venous angioma right hemisphere 2. Incidental sphenoid sinus disease 3. There is no evidence for an ischemic event. 4. No other sinus disease is evident. likely medication induced, consult medical oncology for assistance Oncology consulted recommend Holding nilotinib F/U with Dr. Mac. Patient to call this afternoon to get follow up appointment Consult Neurology seen by Dr. Roberson- cleared for DC with medrol dose erinn and Imitrex 2. [facility] Medical oncology Dr. Sumner consulted, appreciate recommendations 3. Diabetes mellitus Sliding-scale insulin Monitor blood glucose Glucose elevated likely related to IV solumedrol will cover and DC home if glucose < 200 resume metformin and Januvia at home Patient offered glucose meter for home use refused. Patient reports he has had multiple meters in the past and refused to use them. Patient to follow up with PCP 4. Hypertension/gout Continue home medications FEN Regular diet Electrolytes: Monitor and replete as needed NS at 100 cc/hour - DC'd Lovenox Pt Condition on Discharge: Stable Discharge Disposition: Disch w/ Home Health Serv Discharge Time: > 30 minutes Discharge Instructions DIET: Follow Instructions for: Heart Healthy Diet Activities you can perform: Regular-No Restrictions Follow up Referrals: Oncology/Hematology - 3-5 Days with Timoteo Mac MD PCP Follow-up - [address] Mcqueen New Medications: Methylprednisolone Dosepak (Medrol Dosepak) 4 Mg Dspk 4 MG PO DIRECTED, #1 DSPK 0 Refills Per Pharmacist direction Sumatriptan (Imitrex) 50 Mg Tab 50 MG PO ONCE PRN for MIGRAINE HEADACHE, #6 TAB 0 Refills If a satisfactory response has not been obtained at 2 hours, a second dose may be administered Continued Medications: Allopurinol (Allopurinol) 300 Mg Tab 300 MG PO DAILY for Gout, #30 TAB 0 Refills Clonazepam (Klonopin) 1 Mg Tab 0.5-1 MG PO HS, #60 TAB 0 Refills Diphenhydramine HCl (Benadryl Allergy) 25 Mg Tablet 25 MG PO DAILY PRN for ALLERGIES Finasteride (Proscar) 5 Mg Tab 5 MG PO HS for Manage Prostate Problems, #30 TAB 0 Refills Do not crush. Ibuprofen (Ibuprofen) 200 Mg Tab 200-400 MG PO Q4H PRN for MILD PAIN, TAB 0 Refills Lisinopril (Lisinopril) 20 Mg Tab 20 MG PO DAILY, #30 TAB 0 Refills Metformin ER (Metformin ER) 500 Mg Kerri 500 MG PO Q12HR for Blood Sugar Management, TAB 0 Refills Silodosin (Rapaflo) 8 Mg Cap 8 MG PO DAILY for Manage Prostate Problems, #30 CAP 0 Refills Sitagliptin (Januvia) 100 Mg Tab 100 MG PO HS for Blood Sugar Management, #30 TAB 0 Refills Discontinued Medications: Nilotinib (Tasigna) 150 Mg Cap 150 MG PO Q12H for Chemotherapy Management, CAP 0 Refills Take on empty stomach Sandra Palomares Jan 21, 2018 11:06
[2018-01-21 12:00] VITALS: BP 144/68; PULSE 118; RESP 16; TEMP 97.9; O2SAT 96
[2018-01-21 13:25] LABS: HEMOGLOBIN A1C 6.8 % (4.3-6.0)
== END 2018-01-21 14:16 | disposition home health service (06) | DRG 103 ==
LOC: NEPC 15:50 → NEDA 20:51 → N06A 01-20 00:05
PROVIDERS: ADMIT Hospitalist; ATTEND Hospitalist
DX: G44.40 Drug-induced headache, not elsewhere classified, not intractable (principal); D69.3 Immune thrombocytopenic purpura; E11.9 Type 2 diabetes mellitus without complications; D47.1 Chronic myeloproliferative disease; I10 Essential (primary) hypertension; F41.9 Anxiety disorder, unspecified; R53.1 Weakness; R42 Dizziness and giddiness; H53.8 Other visual disturbances; M10.9 Gout, unspecified; Z87.891 Personal history of nicotine dependence; T45.1X5A Adverse effect of antineoplastic and immunosuppressive drugs, initial encounter; Y92.009 Unspecified place in unspecified non-institutional (private) residence as the place of occurrence of the external cause
CPT/HCPCS: 70450; 70496; 70498; 70553; 80048; 80053; 81001; 82550; 82948; 83036; 83735; 84100; 84439; 84443; 84484; 85007; 85027; 85610; 85652; 85730; 86140; 93005; 96361; 96374; 96375; 96376; A9579; J0780; J1170; J1650; J1815; J2270; J2765; J2930; J7030; J7040; Q9967